=== PATIENT | female | born 1955 | race Caucasian/White ===

== ENCOUNTER → 2019-04-17 09:12 | Outpatient (CLI) | payer MEDICARE, SELFPAY ==
--- NOTE | ~2019-04-17 | XR_ITS ---
XR heel RT min 2V DATE: 04/17/2019 09:27 INDICATION: Right heel pain for 2 weeks. No injury. TECHNIQUE: Axial and lateral views COMPARISON: None FINDINGS: There is plantar and posterior calcaneal enthesopathy. There is no associated periostitis o r erosive change. There is some calcification beneath the heel in the region of the plantar aponeuros is. No fracture or dislocation or bone destruction is detected. Posterior tibial artery calcification. IMPRESSION: Plantar and posterior calcaneal enthesopathy Reviewed, dictated and finalized at location B. NOMY TEACHER
== END ==
PROVIDERS: PCP Family Medicine; Visit Provider Family Medicine
DX: M79.671 Pain in right foot (principal); M77.31 Calcaneal spur, right foot
CPT/HCPCS: 73650

== ENCOUNTER 2020-06-14 07:36 | Outpatient (CLI) | payer MEDICARE, SELFPAY ==
--- NOTE | ~2020-06-14 | MR_ITS ---
EXAMINATION: MR brain IAC wo/w con EXAM DATE: 06/14/2020 09:21 INDICATION: R42 - Dizziness and giddiness TECHNIQUE: Multi-sequential, multiplanar MR images of the brain, brainstem, internal auditory canals were obtained without contrast. Whole brain sagittal T1, axial diffusion, gradient echo (T2*), T1, T 2, FLAIR sequences obtained. High resolution coronal 3-D FIESTA, coronal T1 FSE, axial T1 FSPGR of t he internal auditory canals. Patient was then injected with 19 cc Multihance contrast intravenously. Postcontrast axial and coronal T1 weighted whole brain, axial and coronal high resolution T1 IAC seq uences obtained. Comparison is made to prior examination from 09/08/2009. FINDINGS: No evidence of mastoid or middle ear opacification. The 7th/8th cranial nerve complexes a re symmetric, normal in course and caliber. No cerebellopontine angle masses. Posterior fossa unrem arkable. An artery which is probably the left anterior inferior cerebellar artery is extending < 50% into the respective internal auditory canal. This finding has been implicated by some in potentially causing c ompressive 7th/8th cranial nerve symptoms, a vascular loop compressive syndrome, but is often seen in cidentally in asymptomatic patients. There are no areas of restricted diffusion to suggest acute infarction. There is no acute hemorrhage seen on the T2*, a hemosiderin sensitive sequence. Mild microangiopathy and cerebral atrophy. No int raparenchymal brain mass. The ventricles are normal in size. There are no extra-axial collections. Flow voids are seen in the cerebral arteries on the T2-weighted sequences consistent with their expec brodie patency. The orbits are unremarkable. Soft tissue is unremarkable. Incidental right parietal lobe developmental venous anomaly, not a clinically significant finding. Otherwise no areas of abnorm al enhancement. IMPRESSION: 1. No acute intracranial findings. 2. Left AICA extending into interior of internal auditory canal. Could be incidental. 3. Incidental right parietal lobe DVA. 4. Mild age-related findings. Reviewed, dictated and finalized at location B. IMPRESSION: 1. No acute intracranial findings. 2. Left AICA extending into interior of internal auditory canal. Could be inci dental. 3. Incidental right parietal lobe DVA. 4. Mild age-related findings.
== END 2020-06-14 07:37 | disposition home or self-care (01) ==
PROVIDERS: PCP Family Medicine; Visit Provider Family Medicine
DX: R42 Dizziness and giddiness (principal); R41.0 Disorientation, unspecified
CPT/HCPCS: 70553; A9577

== ENCOUNTER 2020-10-26 14:30 | Outpatient (CLI) | payer MEDICARE, SELFPAY ==
--- NOTE | ~2020-10-26 | MM_ITS ---
EXAMINATION: MM screening pat BI w yoselyn HISTORY: Screening TECHNIQUE: Craniocaudal and mediolateral oblique 3-D tomosynthesis images were obtained and synthetic 2-D images were generated. CAD analysis was submitted and interpreted. COMPARISON: Comparison to multiple prior studies sequentially, with oldest reviewed study dated 07/2014. BREAST PARENCHYMAL COMPOSITION: Breast composed of scattered areas of fibroglandular density FINDINGS: There is no evidence of suspicious mass, calcification, or architectural distortion to sugg est malignancy in either breast. There has been no suspicious interval change. IMPRESSION: 1. No mammographic evidence of malignancy. 2. Recommend routine screening mammography in one year. BI-RADS Category 1: Negative Reviewed, dictated and finalized at location A.
== END 2020-10-26 14:31 | disposition home or self-care (01) ==
LOC: ANHIMG 14:34
PROVIDERS: PCP Family Medicine; Visit Provider Family Medicine
DX: Z12.31 Encounter for screening mammogram for malignant neoplasm of breast (principal)
CPT/HCPCS: 77063; 77067

== ENCOUNTER 2021-10-03 14:24 | Emergency (ER) | payer MEDICARE, SELFPAY ==
[2021-10-03 14:35] VITALS: BP 131/98; PULSE 88; RESP 16; TEMP 37.2; O2SAT 97
--- NOTE | 2021-10-03 14:40 | ED.URI ---
HPI - URI/Sore Throat General Chief Complaint: Upper Respiratory Infection Stated Complaint: sinus pressure, cough Time Seen by Provider: 10/03/21 14:45 Source: patient and RN notes reviewed Mode of arrival: ambulatory Limitations: no limitations History of Present Illness HPI Narrative: 66-year-old female with concern for 3-week history of cough. She reports productive cough with clear drainage. She reports clear rhinorrhea. She reports cough is worse at night, keeping her awake. She denies shortness of breath. She reports she has had several negative COVID test throughout the course of her illness. She has tried jxmn-hei-ahirnsl medications without relief. She denies any history of breathing problems, asthma, smoking, COPD. Reports she uses a CPAP machine at night. She denies fever, body aches, chills, sweats, chest pain. MD elicited complaint: cough and rhinorrhea Related Data Home Medications Medication Instructions Recorded Confirmed ferrous fumarate 324 mg (106 mg 324 mg PO DAILY 10/03/21 10/03/21 iron) tablet (Ferrocite) ipratropium bromide 21 mcg (0.03 2 spray intranasal BID 10/03/21 10/03/21 %) nasal spray Allergies Allergy/AdvReac Type Severity Reaction Status Date / Time bupropion Allergy Severe RASH Verified 10/03/21 14:41 oxycodone Allergy Unknown HIVES/ITCHI Verified 10/03/21 14:41 NG red (food color) Allergy Unknown ITCHING Verified 10/03/21 14:41 tramadol Allergy Unknown Itching/HIV Verified 10/03/21 14:41 ES Quqelhg-YST-FgT Reductase AdvReac Intermediate intolerance Verified 10/03/21 14:41 Inhibitor [Aofyaws-Lru-Lvr Reductase Inhibitor] TAPE AdvReac Intermediate WELTS Uncoded 10/03/21 14:41 Review of Systems Review of Systems: CONSTITUTIONAL: Denies malaise, chills, sweats, or fever. EYES: Denies visual changes, redness, or discharge. ENT: Reports rhinorrhea. Denies congestion, sinus pain, otalgia and sore throat. CARDIOVASCULAR: Denies chest pain, palpitations, or edema. RESPIRATORY: Reports persistent productive cough. Denies dyspnea. GASTROINTESTINAL: Denies abdominal pain, nausea, vomiting, diarrhea SKIN: Denies rash or itching. MUSCULOSKELETAL: Denies myalgia. NEUROLOGIC: Denies headache. All systems reviewed & are unremarkable except as noted in HPI and below PMFSH Past Medical History Medical History Anxiety Depression Diabetes type 2, controlled Fever blister History of melanoma Hypertension IBS (irritable bowel syndrome) Infected sebaceous cyst of skin Osteoarthritis Sleep apnea on cpap followed by ent Surgical History Surgical History History of cholecystectomy History of tonsillectomy Family History Family History Father Family history of diabetes mellitus in first degree relative Patient's father is Mother Family history of lung cancer, Onset Age: 77 Other Diabetes mellitus Family history of arthritis Family history of malignant neoplasm Hypertension Social History Social History Smoking status: Never smoker Alcohol intake: current Comments At time of signature, agree with nursing past medical, surgical, social and family history. There is no relevant family history pertinent to the presenting complaint Exam Narrative: GENERAL: Well-appearing, well-nourished, and in no acute distress. HEAD: Normocephalic EYES: PERRLA, conjunctivae clear ENT: Nares clear, clear discharge. Mucous membranes moist. TM pearly guadarrama with dull light reflex bilaterally; no tragal tenderness. Oropharynx not erythematous without lesions. Tonsils not enlarged and without exudate, no drooling, no hoarseness, no trismus, uvula midline. NECK: Supple. No lymphadenopathy CHEST: Clear to auscultation, breath sounds
== END 2021-10-03 15:02 | disposition home or self-care (01) ==
PROVIDERS: Emergency Provider Nurse Practitioner; PCP Physician Assistant
DX: J32.9 Chronic sinusitis, unspecified (principal); J40 Bronchitis, not specified as acute or chronic; E11.9 Type 2 diabetes mellitus without complications; I10 Essential (primary) hypertension; M19.90 Unspecified osteoarthritis, unspecified site; G47.30 Sleep apnea, unspecified; Z85.820 Personal history of malignant melanoma of skin; Z79.84 Long term (current) use of oral hypoglycemic drugs
CPT/HCPCS: 99213; G0463

== ENCOUNTER 2021-10-17 11:34 | Emergency (ER) | payer MEDICARE, SELFPAY ==
--- NOTE | ~2021-10-17 | XR_ITS ---
EXAMINATION: XR chest 2V DATE: 10/17/2021 12:43 INDICATION: Cough. TECHNIQUE: Frontal and lateral views of the chest were obtained. COMPARISON: Chest 2 views 08/22/2016 FINDINGS: There is no pneumonia, pleural effusion, pneumothorax. The heart size is normal. Surgical c lips in the right upper quadrant are likely from cholecystectomy. IMPRESSION: 1. No acute cardiopulmonary disease. Reviewed, dictated and finalized at location A.
[2021-10-17 11:46] VITALS: BP 134/77; PULSE 87; RESP 16; TEMP 36.8; O2SAT 100
--- NOTE | 2021-10-17 12:31 | ED.URI ---
HPI - URI/Sore Throat General Chief Complaint: Upper Respiratory Infection Stated Complaint: cough, sinus pressure Source: patient Mode of arrival: ambulatory Limitations: no limitations History of Present Illness HPI Narrative: 66-year-old female presents to [facility] with complaints of continued sinus congestion, pressure, nonproductive cough and watery eyes for the past 3 to 4 weeks. Patient was evaluated here 3 weeks ago, prescribed Augmentin, cough medication and prednisone 20 mg. Patient reports that she has continued with symptoms and feels that the medication did not help her. Patient is a non-smoker. Patient reports that she recently went on an [place] and got home last night. Patient had 2 recent negative COVID test. Patient denies shortness of breath, wheezing, nausea, vomiting or diarrhea. Patient denies sick contacts. MD elicited complaint: cough Onset (ago): week(s) (3) Consistency: constant Severity: mild Able to tolerate fluids by mouth: Yes Associated symptoms: nasal congestion Treatments prior to arrival: antibiotics Related Data Home Medications Medication Instructions Recorded Confirmed ferrous fumarate 324 mg (106 mg 324 mg PO DAILY 10/03/21 10/17/21 iron) tablet (Ferrocite) ipratropium bromide 21 mcg (0.03 2 spray intranasal BID 10/03/21 10/17/21 %) nasal spray Allergies Allergy/AdvReac Type Severity Reaction Status Date / Time bupropion Allergy Severe RASH Verified 10/03/21 14:41 oxycodone Allergy Unknown HIVES/ITCHI Verified 10/03/21 14:41 NG red (food color) Allergy Unknown ITCHING Verified 10/03/21 14:41 tramadol Allergy Unknown Itching/HIV Verified 10/03/21 14:41 ES Ywtdhcw-PTH-AlV Reductase AdvReac Intermediate intolerance Verified 10/03/21 14:41 Inhibitor [Utvtjpy-Rbw-Wbs Reductase Inhibitor] TAPE AdvReac Intermediate WELTS Uncoded 10/03/21 14:41 Review of Systems Constitutional: Constitutional: Denies chills, Denies fatigue, Denies fever(s) and Denies weakness Eyes: Comments: Watery eyes ENT: Denies dizziness Comments: Sinus pressure, congestion, runny nose Respiratory: Respiratory: Denies chest congestion, Reports cough, Denies dyspnea and Denies wheezing Gastrointestinal: Gastrointestinal: Denies diarrhea, Denies nausea and Denies vomiting Integumentary/Breasts: Skin/Breast: Denies pruritus and Denies rash Neurologic: Denies vertigo and Denies dizziness Allergic/Immunologic: Allergic/Immunologic: Denies throat swelling, Denies tongue swelling and Denies wheezing PMFSH Past Medical History Medical History Anxiety Depression Diabetes type 2, controlled Fever blister History of melanoma Hypertension IBS (irritable bowel syndrome) Infected sebaceous cyst of skin Osteoarthritis Sleep apnea on cpap followed by ent Surgical History Surgical History History of cholecystectomy History of tonsillectomy Family History Family History Father Family history of diabetes mellitus in first degree relative Patient's father is Mother Family history of lung cancer, Onset Age: 77 Other Diabetes mellitus Family history of arthritis Family history of malignant neoplasm Hypertension Social History Social History Smoking status: Never smoker Alcohol intake: current Comments At time of signature, I agree with nursing past medical, surgical, social and family history. There is no relevant family history pertinent to the presenting complaint. Exam Const: General: healthy appearing and no acute distress Nutritional Appearance: well nourished Orientation/consciousness: patient oriented x3 Limitations: no limitations HENMT: Head: normal to inspection Ears: external ears normal Gen
== END 2021-10-17 13:00 | disposition home or self-care (01) ==
PROVIDERS: Emergency Provider Nurse Practitioner Family; PCP Physician Assistant
DX: J01.90 Acute sinusitis, unspecified (principal); J06.9 Acute upper respiratory infection, unspecified; E11.9 Type 2 diabetes mellitus without complications; I10 Essential (primary) hypertension; M19.90 Unspecified osteoarthritis, unspecified site; G47.30 Sleep apnea, unspecified; Z85.820 Personal history of malignant melanoma of skin
CPT/HCPCS: 71046; 99213; G0463

== ENCOUNTER → 2022-08-08 14:32 | Outpatient (CLI) | payer MEDICARE, SELFPAY ==
--- NOTE | ~2022-08-08 | XR_ITS ---
EXAM: XR knee RT min 4V, XR knee LT min 4V DATE: 08/08/2022 14:51 HISTORY: no injury bilateral knee pain . COMPARISON: 08/07/2014. FINDINGS: Decreased mineralization. No fracture or dislocation. No lytic or blastic lesion. Varus al ignment bilaterally, greater on the left. Severe bilateral medial joint space narrowing. Calcificatio n of the right medial capsule and MCL. Bilateral chondrocalcinosis. Heterotopic bone formation supero lateral to the bilateral patellae. Moderate bilateral tricompartmental osteophytosis No erosion or pe riosteal change. Soft tissues within normal limits. IMPRESSION: Osteopenia. Severe bilateral knee osteoarthritis. Heterotopic bone formation superolatera l to the bilateral patellae. Reviewed, dictated and finalized at location K. IMPRESSION: Osteopenia. Severe bilateral knee osteoarthritis. Heterotopic bone formation superolateral to the bilateral patellae.
== END ==
PROVIDERS: PCP Emergency Medicine; Visit Provider Emergency Medicine
DX: M17.0 Bilateral primary osteoarthritis of knee (principal); M85.861 Other specified disorders of bone density and structure, right lower leg; M85.862 Other specified disorders of bone density and structure, left lower leg
CPT/HCPCS: 73564

== ENCOUNTER 2023-02-22 15:59 | Outpatient (CLI) | payer MEDICARE, SELFPAY ==
--- NOTE | ~2023-02-22 | MM_ITS ---
EXAMINATION: MM screening [facility] BI w yoselyn HISTORY: Screening mammogram TECHNIQUE: Craniocaudal and mediolateral oblique 3-D tomosynthesis images were obtained and synthetic 2-D images were generated. CAD analysis was submitted and interpreted. COMPARISON: 10/26/2020, 10/23/2017, 01/11/2016, 11/24/2015 BREAST PARENCHYMAL COMPOSITION: There are scattered areas of fibroglandular density. FINDINGS: No suspicious mass, calcification, or architectural distortion are identified in either brunilda ast to suggest malignancy. There has been no suspicious interval change. IMPRESSION: 1. No mammographic evidence of malignancy. 2. Recommend routine screening mammography in one year. BI-RADS Category 1: Negative Reviewed, dictated and finalized at location A. DENTIAL TREATMENT STAFF
== END 2023-02-22 16:00 | disposition home or self-care (01) ==
PROVIDERS: PCP Emergency Medicine; Visit Provider Emergency Medicine
DX: Z12.31 Encounter for screening mammogram for malignant neoplasm of breast (principal)
CPT/HCPCS: 77063; 77067

== ENCOUNTER 2023-03-06 02:09 | Day surgery (SDC) | payer MEDICARE, SELFPAY ==
[2023-02-19 14:38] VITALS: BMI 35.1
--- NOTE | 2023-03-02 13:20 | SUR.PREOP ---
Patient called regarding upcoming procedure. Reviewed preop instructions, appointment times, and procedure prep.
[2023-03-06 09:48] LABS: Glucose Point of Care 139 mg/dl (65-105)
[2023-03-06 09:51] VITALS: BP 155/82; PULSE 77; RESP 18; TEMP 36.5; O2SAT 99
[2023-03-06] MEDS: LACTATED RINGERS 1,000 ML 150 ML IV CONT (10:08)
--- NOTE | 2023-03-06 10:35 | PM.HPGS ---
History of Present Illness History of Present Illness Consent: Risks, benefits, and alternatives have been discussed and questions answered. Patient agrees to proceed with procedure. Chief complaint: neoplasm screening Narrative: Oumou Valerio is a 67 year old female here for screening colonoscopy, last one 10 years ago Review of Systems Constitutional: Constitutional: Denies headache(s) and Denies weakness Eyes: Eyes: Denies blurry vision ENT: Reports Normal hearing present, Denies headache(s) and Denies neck pain Cardiovascular: Cardiovascular: Denies chest pain and Denies dyspnea Respiratory: Respiratory: Denies dyspnea Gastrointestinal: Gastrointestinal: Reports no additional gastrointestinal complaints Genitourinary: Genitourinary: Denies dysuria Musculoskeletal: Musculoskeletal: Denies neck pain Integumentary/Breasts: Skin/Breast: Denies dry skin Neurologic: Reports Normal hearing present, Denies headache(s) and Denies weakness Psychiatric: Psychiatric: Denies anxiety Endocrine: Endocrine: Denies change in body appearance Hematologic/Lymphatic: Hematologic/Lymphatic: Denies easy bleeding Allergic/Immunologic: Allergic/Immunologic: Denies urticaria PMFSH Past Medical History Medical History (Updated 03/06/23 @ 10:36 by Ishaan Patterson MD) Anxiety Colon cancer screening Depression Diabetes type 2, controlled Fever blister History of melanoma Hypertension IBS (irritable bowel syndrome) Infected sebaceous cyst of skin Osteoarthritis Sleep apnea on cpap followed by ent Surgical History Surgical History History of cholecystectomy History of tonsillectomy Family History Family History Father Family history of diabetes mellitus in first degree relative Patient's father is Mother Family history of lung cancer, Onset Age: 77 Other Diabetes mellitus Family history of arthritis Family history of malignant neoplasm Hypertension Social History Social History (Updated 12/07/22 @ 14:27 by Alyssa Hernandez CMA) Smoking status: Never smoker Alcohol intake: current Alcohol use details: rarely Substance use type: does not use Lack of Transportation: No Lack of Food: Never True Current Housing: I Have Housing Concerned About Future Housing: No Difficulty Paying Gas/Electric Bills: No Difficulty Paying for Meds: No Currently Unemployed: No Education: Decline to Answer Difficulty w/ Childcare or Family Care: No Living arrangements: other Additional living arrangements comments: with sp Occupation/Education: occupation 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- [employer] Spiritual care concerns: No Meds Home Medications and Allergies Home Medications Medication Instructions Recorded Confirmed Type levocetirizine 5 mg tablet 5 mg PO DAILY 12/19/22 03/06/23 History tirzepatide 2.5 mg/0.5 mL 2.5 mg (0.5 mL) subcut WEEKLY 4 03/03/23 03/06/23 Rx subcutaneous pen injector weeks #2 mL (Mounjaro) clonazepam 0.5 mg tablet 0.5 mg PO DAILY #30 tabs 03/06/23 Rx diclofenac sodium 75 mg 75 mg PO BID 03/06/23 03/06/23 History tablet,delayed release dicyclomine 20 mg tablet 20 mg PO BID 03/06/23 03/06/23 History glipizide 5 mg tablet, extended 5 mg PO DAILY #90 tabs 03/06/23 Rx release 24 hr montelukast 10 mg tablet 10 mg PO QPM 03/06/23 03/06/23 History verapamil 240 mg tablet,extended 240 mg PO DAILY 03/06/23 03/06/23 History release Allergies Allergy/AdvReac Type Severity Reaction Status Date / Time bupropion Allergy Severe RASH Verified 03/06/23 09:47 oxycodone Allergy Unknown HIVES/ITCHI Verified 03/06/23 09:47 NG red (food color) Allergy Unknown ITCHING Verified 03/06/23 09:47 tramadol Allergy Unknown Itching/HIV Verified 03/06/23 09:[address]
--- NOTE | 2023-03-06 10:37 | WPDANESEPPF ---
Anes - Initial Pre Proc Eval Procedure: Operation Date: 03/06/23 11:00 Proposed Procedures p Screening Colonoscopy - Ishaan Patterson MD Date/Time: 03/06/23 10:37 Surgeon: Ishaan Patterson MD Pre Op Diagnosis: neoplasm screening Patient Data Age: 67 Gender: F Height: 1.6 m Weight: 87.4 kg Last Vital Signs Temp 97.7 F 03/06/23 09:51 Pulse 77 03/06/23 09:51 Resp 18 03/06/23 09:51 BP 155/82 H 03/06/23 09:51 Pulse Ox 99 03/06/23 09:51 O2 Del Method Room Air 03/06/23 09:51 Allergies Allergy/AdvReac Type Severity Reaction Status Date / Time bupropion Allergy Severe RASH Verified 03/06/23 09:47 oxycodone Allergy Unknown HIVES/ITCHI Verified 03/06/23 09:47 NG red (food color) Allergy Unknown ITCHING Verified 03/06/23 09:47 tramadol Allergy Unknown Itching/HIV Verified 03/06/23 09:47 ES Wupzjul-BRW-YeF Reductase AdvReac Intermediate intolerance Verified 03/06/23 09:47 Inhibitor [Rkztqxu-Msl-Ckb Reductase Inhibitor] TAPE AdvReac Intermediate WELTS Uncoded 03/06/23 09:47 Home Medications Medication Instructions Recorded Confirmed Type levocetirizine 5 mg tablet 5 mg PO DAILY 12/19/22 03/06/23 History tirzepatide 2.5 mg/0.5 mL 2.5 mg (0.5 mL) subcut WEEKLY 4 03/03/23 03/06/23 Rx subcutaneous pen injector weeks #2 mL (Jerseyunanjum) clonazepam 0.5 mg tablet 0.5 mg PO DAILY #30 tabs 03/06/23 Rx diclofenac sodium 75 mg 75 mg PO BID 03/06/23 03/06/23 History tablet,delayed release dicyclomine 20 mg tablet 20 mg PO BID 03/06/23 03/06/23 History glipizide 5 mg tablet, extended 5 mg PO DAILY #90 tabs 03/06/23 Rx release 24 hr montelukast 10 mg tablet 10 mg PO QPM 03/06/23 03/06/23 History verapamil 240 mg tablet,extended 240 mg PO DAILY 03/06/23 03/06/23 History release Laboratory Tests 03/06/23 09:44 POC Capillary Glucose 139 H mg/dl (65-105) Patient hx anesthesia problems: none Family hx anesthesia problems: none Results Review: All pre-operative results and documents have been reviewed as part of the pre-operative evaluation. [facility] Past Medical History Medical History (Updated 03/06/23 @ 10:36 by Ishaan Patterson MD) Anxiety Colon cancer screening Depression Diabetes type 2, controlled Fever blister History of melanoma Hypertension IBS (irritable bowel syndrome) Infected sebaceous cyst of skin Osteoarthritis Sleep apnea on cpap followed by ent Surgical History Surgical History History of cholecystectomy History of tonsillectomy Family History Family History Father Family history of diabetes mellitus in first degree relative Patient's father is Mother Family history of lung cancer, Onset Age: 77 Other Diabetes mellitus Family history of arthritis Family history of malignant neoplasm Hypertension Social History Social History (Updated 12/07/22 @ 14:27 by Alyssa Hernandez CMA) Smoking status: Never smoker Alcohol intake: current Alcohol use details: rarely Substance use type: does not use Lack of Transportation: No Lack of Food: Never True Current Housing: I Have Housing Concerned About Future Housing: No Difficulty Paying Gas/Electric Bills: No Difficulty Paying for Meds: No Currently Unemployed: No Education: Decline to Answer Difficulty w/ Childcare or Family Care: No Living arrangements: other Additional living arrangements comments: with sp Occupation/Education: occupation 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
[2023-03-06 10:58] VITALS: BP 107/47; PULSE 70; RESP 11; O2SAT 97
[2023-03-06 11:08] VITALS: BP 99/50; PULSE 73; RESP 13; O2SAT 97
[2023-03-06 11:18] VITALS: BP 124/75; PULSE 77; RESP 18; O2SAT 99
== END 2023-03-06 11:31 | disposition home or self-care (01) ==
PROVIDERS: PCP Emergency Medicine; Visit Provider Internal Medicine Gastroenterology
PROC: 0DJD8ZZ Inspection of Lower Intestinal Tract, Via Natural or Artificial Opening Endoscopic (ICD-10-PCS; CPT 45378; principal; 2023-03-06 11:00)
DX: Z12.11 Encounter for screening for malignant neoplasm of colon (principal); I10 Essential (primary) hypertension; F41.9 Anxiety disorder, unspecified; F32.A Depression, unspecified; E11.9 Type 2 diabetes mellitus without complications; K58.9 Irritable bowel syndrome, unspecified; G47.30 Sleep apnea, unspecified; E66.9 Obesity, unspecified; Z68.34 Body mass index [BMI] 34.0-34.9, adult; Z79.85 Long-term (current) use of injectable non-insulin antidiabetic drugs; Z79.84 Long term (current) use of oral hypoglycemic drugs; Z99.89 Dependence on other enabling machines and devices; Z90.49 Acquired absence of other specified parts of digestive tract; Z85.820 Personal history of malignant melanoma of skin; Z80.1 Family history of malignant neoplasm of trachea, bronchus and lung
CPT/HCPCS: G0105; 82948; J2704; J7120

== ENCOUNTER 2023-03-27 14:45 | Outpatient (RCR) | payer MEDICARE, SELFPAY ==
[2023-01-09 13:34] VITALS: BMI 36.3
[2023-01-23 15:46] VITALS: BMI 36.3
[2023-03-27 14:45] VITALS: BMI 34.0
[2023-03-27 14:47] VITALS: BMI 34.0
== END 2023-04-09 09:54 | disposition home or self-care (01) ==
LOC: ANHDMC 14:45
PROVIDERS: PCP Emergency Medicine; Visit Provider Emergency Medicine
DX: E11.40 Type 2 diabetes mellitus with diabetic neuropathy, unspecified (principal); E11.65 Type 2 diabetes mellitus with hyperglycemia; Z71.3 Dietary counseling and surveillance
CPT/HCPCS: 97802; 97803

== ENCOUNTER 2023-04-16 14:25 | Outpatient (CLI) | payer MEDICARE, SELFPAY ==
--- NOTE | 2023-04-16 15:33 | ECG_ITS ---
Measurements Intervals [place] Rate: 69 P: 0 CO: 140 QRS: 15 QRSD: 92 T: 42 QT: 376 QTc: 405 Interpretive Statements SINUS RHYTHM DELAYED PRECORDIAL R/S TRANSITION LOW QRS VOLTAGE IN PRECORDIAL LEADS BASELINE ARTIFACT- I, II, III, AVR, AVL, AVF, V1-V6 BORDERLINE ECG COMPARED TO ECG 02/24/2019 08:49:20 NO SIGNIFICANT CHANGES Electronically Signed On 04-16-2023 15:54:28 MICROBIOLOGY TECHNOLOGIST by Cruz Walker D.O.
[2023-04-16 16:06] LABS: Basophils Absolute Auto 0.1 K/mm3 (0.0-0.1); Basophils Percent Auto 0.9 % (0.2-1.2); Eosinophils Absolute Auto 0.3 K/mm3 (0-0.3); Eosinophils Percent Auto 2.6 % (0-4.4); Hematocrit 38.3 % (37.0-47.0); Immature Granulocyte Absolute 0.03 K/mm3 (0.00-0.031); Immature Granulocyte Percent A 0.3 % (0-0.5); Lymphocytes Absolute Auto 3.36 K/mm3 (0.9-3.2); Lymphocytes Percent Auto 32.7 % (18.3-44.2); Mean Corpuscular HGB Conc 31.3 g/dl (32-36); Mean Corpuscular Hemoglobin 26.7 pg (26-34); Mean Corpuscular Volume 85.1 fl (80-100); Mean Platelet Volume 9.6 fl (7.4-10.4); Monocytes Absolute Auto 0.7 K/mm3 (0.1-0.6); Monocytes Percent Auto 7.1 % (2.6-8.5); Neutrophils Absolute Auto 5.8 K/mm3 (1.3-6.7); Neutrophils Percent Auto 56.4 % (45.5-73.1); Platelet Count Result 392 k/mm3 (150-375); Red Cell Distribution Width 13.2 % (11.5-14.5); White Blood Count 10.3 K/mm3 (4.5-10.0)
[2023-04-16 16:11] LABS: Albumin Level 4.5 g/dL (3.5-5.1)
[2023-04-16 16:14] LABS: Anion Gap 9 mmol/L (8-16); Blood Urea Nitrogen 20 mg/dL (7-17); Carbon Dioxide 28 mmol/L (22-30); Chloride 98 mmol/L (98-107); Estimated Glomerular Filt Rate > 60; Glucose 113 mg/dL (65-110); Potassium 3.5 mmol/L (3.4-5.0); Sodium 135 mmol/L (137-145); Urine Cotinine NEGATIVE
[2023-04-16 18:37] LABS: Hemoglobin A1C 7.5 % (<5.7)
== END 2023-04-16 14:26 | disposition home or self-care (01) ==
LOC: ANHSURGERY 14:36
PROVIDERS: Anesthesiology; PCP Family Medicine; Visit Provider Orthopaedic Surgery
DX: M17.12 Unilateral primary osteoarthritis, left knee (principal); E11.40 Type 2 diabetes mellitus with diabetic neuropathy, unspecified; Z01.818 Encounter for other preprocedural examination
CPT/HCPCS: 36415; 80048; 80307; 82040; 83036; 85025; 86850; 86900; 86901; 93005

== ENCOUNTER 2023-04-23 01:39 | Day surgery (SDC) | payer MEDICARE, SELFPAY ==
[2023-04-16 14:42] VITALS: BMI 36.1
--- NOTE | 2023-04-16 15:10 | PC.NURSE ---
Report to the Outpatient Waiting Room, entrance under the green pavilion located off [facility], at time __0600 on date ___04/23/23____. Planned Procedure Time: __729 . Time changes happen often and if your time is changed the preop area will call you the afternoon before. - You and your visitor will be asked to self-screen and do not enter if you have any COVID symptoms. - A mask is optional within the hospital at this time. Patients may have clear liquids (water, carbonated beverages, clear teas, apple juice) until 3 hours prior to surgery ( 4:30 AM)with a maximum of 20 ounces. - No food from midnight until time of surgery - Infants may have breast milk until 4 hours before surgery, formula 6 hours prior to surgery. - Children will be allowed to drink immediately following surgery. If applicable, please bring a bottle or sippy cup to assist with drinking. Juice, water, soda, and popsicles are readily available. For infants on formula, please bring formula the day of surgery. Pacifiers are allowed. Take the following medications with a SIP of water the morning of surgery: __SERTRALINE,VERAPAMIL DO NOT STOP ANY OF YOUR OTHER PRESCRIPTION MEDICATIONS PRIOR TO SURGERY ?EXCEPT THE FOLLOWING Medications to discontinue per physician __DICLOFENAC PER DR PLUNKETT ( PATIENT TO CALL) HOLD ALL VITAMINS AND SUPPLEMENTS 3 DAYS PRE OP LAST DOSE 04/19/23 Please no make-up, nail greenlandic, hairspray, perfume, deodorant, or body powder the day of surgery. No jewelry (including any body piercings) or valuables the day of surgery, leave them at home. Please take a shower or bath the night before, or the morning of, surgery with an antibacterial soap. Wear comfortable, loose fitting clothing. Children are encouraged to wear pajamas. - Jewelry must be removed prior to entering the operating room. Rings and piercings that are not removed may be cut off. - The hospital will not accept responsibility for valuables. - Please leave all valuables, including medications, at home the day of surgery. If you are going home after surgery, a licensed driver starting gate must drive you home. - NO public transportation without another adult if you receive anesthesia. - We recommend that an adult stay with you for 24 hours following discharge. - We also recommend that you do not drive, make important decision, drink alcoholic beverages, or take any drugs that were not prescribed by your health care provider for at least 24 hours after your discharge time. Follow any additional instructions given to you from your surgeon. If you or anyone in your household have experienced Covid symptoms in the past week, please notify your surgeon or the nurse liaison at the phone number below for possible testing. VERBAL AND WRITTEN instructions given to __PATIENT and asked if any additional questions and then verbalized understanding. Patient advised to call surgeon office or pre surgery nurse liaison [phone] if any additional questions.
[2023-04-16 15:27] VITALS: BP 143/76; PULSE 72; RESP 18; TEMP 36.7; O2SAT 98
--- NOTE | 2023-04-19 07:21 | PM.IMHP ---
H&P: HPI History of Present Illness Date/Time: 04/19/23 07:21 Chief Complaint: Patient has arthritis right knee and has failed conservative treatment. She would like to consider knee replacement surgery. Review of Systems Musculoskeletal: Musculoskeletal: Reports arthralgias, Reports joint swelling and Reports stiffness PMFSH Past Medical History Medical History Anxiety Colon cancer screening Depression Diabetes type 2, controlled Fever blister History of melanoma Hypertension IBS (irritable bowel syndrome) Infected sebaceous cyst of skin Osteoarthritis Sleep apnea on cpap followed by ent Surgical History Surgical History History of cholecystectomy History of tonsillectomy Family History Family History Father Family history of diabetes mellitus in first degree relative Patient's father is Mother Family history of lung cancer, Onset Age: 77 Other Diabetes mellitus Family history of arthritis Family history of malignant neoplasm Hypertension Social History Social History Smoking status: Never smoker Additional smoking assessment comments: DENIES ANY FORM OF TOBACCO USE Alcohol intake: current Alcohol use details: rarely Substance use type: does not use Lack of Transportation: No Lack of Food: Never True Current Housing: I Have Housing Concerned About Future Housing: No Difficulty Paying Gas/Electric Bills: No Difficulty Paying for Meds: No Currently Unemployed: No Education: Decline to Answer Difficulty w/ Childcare or Family Care: No Living arrangements: with family Additional living arrangements comments: with sp Occupation/Education: occupation 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[employer]- [employer] Spiritual care concerns: No Meds Home Medications and Allergies Home Medications Medication Instructions Recorded Confirmed Type levocetirizine 5 mg tablet 5 mg PO HS 12/19/22 04/16/23 History diclofenac sodium 75 mg 75 mg PO BID 03/06/23 04/16/23 History tablet,delayed release dicyclomine 20 mg tablet 20 mg PO BID 03/06/23 04/16/23 History glipizide 5 mg tablet, extended 5 mg PO DAILY #90 tabs 03/06/23 04/16/23 Rx release 24 hr montelukast 10 mg tablet 10 mg PO HS 03/06/23 04/16/23 History hydrochlorothiazide 12.5 mg tablet 12.5 mg PO DAILY #90 tabs 03/09/23 04/16/23 Rx verapamil 240 mg tablet,extended See Rx Instructions .Route 04/06/23 04/16/23 Rx release .COMPLEX #90 tabs sertraline 25 mg tablet 25 mg PO DAILY #30 tabs 04/10/23 04/16/23 Rx trazodone 50 mg tablet 50 mg PO QHS PRN sleep #60 tabs 04/10/23 04/16/23 Rx clonazepam 0.5 mg tablet 0.5 mg PO HS 04/16/23 04/16/23 History cyanocobalamin (vitamin B-12) 500 500 mcg PO DAILY 04/16/23 04/16/23 History mcg tablet metformin 500 mg tablet,extended 500 mg PO BID 04/16/23 04/16/23 History release 24 hr Allergies Allergy/AdvReac Type Severity Reaction Status Date / Time bupropion Allergy Severe RASH Verified 04/16/23 14:43 oxycodone Allergy Unknown HIVES/ITCHI Verified 04/16/23 14:43 NG red (food color) Allergy Unknown ITCHING Verified 04/16/23 14:43 tramadol Allergy Unknown Itching/HIV Verified 04/16/23 14:43 ES Mpmmwmv-OVY-NaA Reductase AdvReac Intermediate intolerance Verified 04/16/23 14:43 Inhibitor [Fjvhibc-Doz-Wus Reductase Inhibitor] TAPE AdvReac Intermediate WELTS Uncoded 04/16/23 14:43 Exam Narrative: On exam she has motion of her knee from 3 to 100?. She has varus deformity grinding crepitus and pain with manipulation. Neurologically she is grossly intact. She walks with an antalgic gait. Eyes: General: appearance normal, both eyes and all related structures Neck:
[2023-04-23] VITALS (14 sets, daily range): BP systolic 120–160; BP diastolic 56–79; PULSE 68–79; RESP 12–20; TEMP 35.6–36.6; O2SAT 94–99
--- NOTE | ~2023-04-23 | XR_ITS ---
EXAMINATION: [id number] DATE: 04/23/2023 10:01 INDICATION: Postoperative evaluation following left total knee arthroplasty. TECHNIQUE: Anteroposterior and lateral views of the left knee were obtained. COMPARISON: None. FINDINGS: Left total knee arthroplasty with patellar resurfacing appears well seated and in near anatomic align ment. No fractures identified. Skin sarah and expected postoperative subcutaneous, intramedullary and intra-articular gas. IMPRESSION: 1. Left total knee arthroplasty, negative for postoperative purposes. Reviewed, dictated and finalized at location B.
[2023-04-23] MEDS: ACETAMINOPHEN 500 MG TABLET 1000 MG PO (06:10)
[2023-04-23] MEDS: VANCOMYCIN 1,500 MG/NS 500 ML BAG 250 MG IVPB (06:25)
[2023-04-23 06:44] LABS: Glucose Point of Care 154 mg/dl (65-105)
--- NOTE | 2023-04-23 06:57 | WPDHPUPDATE1 ---
History and Physical Update Update Date/Time: 04/23/23 06:57 History and Physical has been reviewed, including an updated exam of the patient. There are NO changes in the patient's condition. Risks, benefits, and alternatives have been discussed and questions answered. Patient agrees to proceed with procedure. Left Knee is the operative knee today.
--- NOTE | 2023-04-23 06:59 | WPDANESEPPF ---
Anes - Initial Pre Proc Eval Procedure: Operation Date: 04/23/23 07:30 Proposed Procedures p Left Total Knee Arthroplasty - Ihsan العراقي MD Date/Time: 04/23/23 06:59 Surgeon: Ihsan العراقي MD Pre Op Diagnosis: OA left knee Patient Data Age: 68 Gender: F Height: 1.6 m Weight: 89.3 kg Last Vital Signs Temp 36.2 C L 04/23/23 06:43 Pulse 78 04/23/23 06:43 Resp 16 04/23/23 06:43 BP 149/79 H 04/23/23 06:43 Pulse Ox 99 04/23/23 06:43 O2 Del Method Room Air 04/23/23 06:43 Allergies Allergy/AdvReac Type Severity Reaction Status Date / Time bupropion Allergy Severe RASH Verified 04/23/23 06:07 oxycodone Allergy Unknown HIVES/ITCHI Verified 04/23/23 06:07 NG red (food color) Allergy Unknown ITCHING Verified 04/23/23 06:07 tramadol Allergy Unknown Itching/HIV Verified 04/23/23 06:07 ES Cggobsg-EYZ-YgG Reductase AdvReac Intermediate intolerance Verified 04/23/23 06:07 Inhibitor [Agueooo-Try-Nuo Reductase Inhibitor] TAPE AdvReac Intermediate WELTS Uncoded 04/23/23 06:07 Home Medications Medication Instructions Recorded Confirmed Type levocetirizine 5 mg tablet 5 mg PO HS 12/19/22 04/23/23 History diclofenac sodium 75 mg 75 mg PO BID 03/06/23 04/23/23 History tablet,delayed release dicyclomine 20 mg tablet 20 mg PO BID 03/06/23 04/23/23 History glipizide 5 mg tablet, extended 5 mg PO DAILY #90 tabs 03/06/23 04/23/23 Rx release 24 hr montelukast 10 mg tablet 10 mg PO HS 03/06/23 04/23/23 History hydrochlorothiazide 12.5 mg tablet 12.5 mg PO DAILY #90 tabs 03/09/23 04/23/23 Rx verapamil 240 mg tablet,extended See Rx Instructions .Route 04/06/23 04/23/23 Rx release .COMPLEX #90 tabs sertraline 25 mg tablet 25 mg PO DAILY #30 tabs 04/10/23 04/23/23 Rx trazodone 50 mg tablet 50 mg PO QHS PRN sleep #60 tabs 04/10/23 04/23/23 Rx clonazepam 0.5 mg tablet 0.5 mg PO HS 04/16/23 04/23/23 History cyanocobalamin (vitamin B-12) 500 500 mcg PO DAILY 04/16/23 04/23/23 History mcg tablet metformin 500 mg tablet,extended 500 mg PO BID 04/16/23 04/23/23 History release 24 hr rivaroxaban 10 mg tablet (Xarelto) 10 mg PO DAILY PE prophylaxis s/p 04/20/23 Rx joint replacement surgery 10 days #10 tabs Laboratory Tests 04/23/23 06:37 POC Capillary Glucose 154 H mg/dl (65-105) Patient hx anesthesia problems: none Family hx anesthesia problems: none Results Review: All pre-operative results and documents have been reviewed as part of the pre-operative evaluation. [facility] Past Medical History Medical History Anxiety Colon cancer screening Depression Diabetes type 2, controlled Fever blister History of melanoma Hypertension IBS (irritable bowel syndrome) Infected sebaceous cyst of skin Osteoarthritis Sleep apnea on cpap followed by ent Surgical History Surgical History History of cholecystectomy History of tonsillectomy Family History Family History Father Family history of diabetes mellitus in first degree relative Patient's father is Mother Family history of lung cancer, Onset Age: 77 Other Diabetes mellitus Family history of arthritis Family history of malignant neoplasm Hypertension Social History Social History Smoking status: Never smoker Additional smoking assessment comments: DENIES ANY FORM OF TOBACCO USE Alcohol intake: current Alcohol use details: rarely Substance use type: does not use Lack of Transportation: No Lack of Food: Never True Current Housing: I Have Housing Concerned About Future Housing: No Difficulty Paying Gas/Electric Bills: No Difficulty Paying for Meds: No Currently Unemployed: No Education: Decline to An
[2023-04-23] MEDS: TRANEXAMIC ACID 1,000MG/ISO100 1,000 MG/100 ML BAG 200 MG IVPB (07:07)
--- NOTE | 2023-04-23 07:19 | WPDANESPNB ---
Anes - Peripheral Nerve Block Date/Time: 04/23/23 07:19 I have discussed with the patient/family/POA the placement of a peripheral nerve block for post-operative pain management, including associated risks, benefits, complications, and side effects. Alternative methods of post-operative analgesia were detailed. Questions were solicited and answers provided to the satisfaction of the patient/family/POA. Time-Out: A pre-procedural Time-Out was completed immediately before starting the procedure and confirmed: Patient Identification, Site, Procedure, Patient Position and the Availability of Requisite Equipment. Clinical Indications: Acute post-operative pain management requested by the operative surgeon. Nerve Block Insertion Note Anes-nerve block: adductor canal left Patient position: supine Skin prep: chlorhexidine Needle: 22 gauge, stimulating, insulated echogenic needle. Needle length: 80 mm Technique: ultrasound Injectate: bupivacaine 0.5% with epi 5 mcg/ml (30cc - no epi) Observations: tolerated well Complications: none Procedure start time:: 719 Procedure end time:: 724
[2023-04-23] MEDS: ceFAZolin 2 GM/D5W 50 ML 2 GM/50 ML BAG IVPB ×3 (07:40→23:56)
[2023-04-23] MEDS: BUPIVACAINE/EPINEPHRINE 0.5% 30 ML VIAL INFILTRATE (08:05)
[2023-04-23] MEDS: TRANEXAMIC ACID 1,000 MG/10 ML AMPUL 1000 MG IV PUSH (09:05)
[2023-04-23] MEDS: ceFAZolin SODIUM 1 GM VIAL IV PUSH (09:06)
--- NOTE | 2023-04-23 09:16 | W.PM.PROC2 ---
Procedure Note - Detailed Date of Procedure 04/23/23 Pre-op Diagnosis Osteoarthritis left knee Post-op Diagnosis Same Procedure Performed LEFT total knee arthroplasty Surgeon Ihsan العراقي MD [employer]borne Operations Manager [employer] Anesthesia General Indications Pain, arthritis and deformity Description of Procedure The patient was brought to operating room #7. A general anesthetic was administered. Placed on the operating table and sterilely prepped and draped in usual manner. A longitudinal incision was made. Tourniquet inflated to 300 mmHg for a total of 45 minutes. Dissection was carried down to the fascia. Medial parapatellar incision was made and the patella subluxated laterally. Patella cut from 18 to 14 mm and sized for a 34 mm button. The tibia was cut perpendicular to the long axis and femur cut in 5 degrees of valgus. A 65 femur trialed. 67 tibia was felt to fit the best. The soft tissues balanced, hemostasis obtained. All [address], 67 tibia, 65 femur, 10 mm patella, and 34 mm poly. Motion was 0-125 degrees with good stability in both flexion and extension. The wound was closed with #2 Vicryl, 2-0 Vicryl and sarah. [employer] Estimated Blood Loss 200 Drains No Packing No Pathology None sent Complications No immediate complications Condition Stable Disposition PACU [facility] Billing Surgery - Charge Forward: Surgery Billing ([id number] LEFT Total Knee)
[2023-04-23] MEDS: LACTATED RINGERS 1,000 ML 30 ML IV CONT (09:45)
[2023-04-23 09:52] LABS: Glucose Point of Care 234 mg/dl (65-105)
[2023-04-23] MEDS: INSULIN HUMAN REGULAR (*BKC) 100 UNITS/ML IV PUSH (09:59)
[2023-04-23] MEDS: fentaNYL CITRATE INJ (*CRX) 100 MCG/2 ML VIAL 25 MCG IV PUSH ×4 (10:10→10:24)
[2023-04-23 10:41] LABS: Glucose Point of Care 248 mg/dl (65-105)
--- NOTE | 2023-04-23 10:42 | SUR.PHASEI ---
1040 - dr. benitez aware of accucheck of 248. no orders received at this time.
[2023-04-23] MEDS: HYDROcodone/acetaminophen (*CRX) 5-325 MG TABLET 1 TAB PO ×2 (11:26→15:32)
[2023-04-23] MEDS: SODIUM CHLORIDE 0.9% IV 1,000 ML 125 ML IV CONT (11:27)
--- NOTE | 2023-04-23 11:34 | ADMGEN ---
This patient, Oumou Valerio, was admitted to [facility] Room 324-01. Patient/family oriented to hospital policies and general routines including ID bracelet, bed and alarms, visiting hours, pain management, procedures, bathroom and other care routines, personal items, smoking policy, room service/diet, and visiting hours. Information on how to activate the Rapid Response Team has been discussed. Patient/Family are encouraged to report perceived risks to care and to ask questions if they do not understand what they are told or what they should do.
[2023-04-23 11:48] LABS: Glucose Point of Care 206 mg/dl (65-105)
--- NOTE | 2023-04-23 15:24 | WPDCN ---
Assessment and Plan Assessment and plan (1) Arthritis of left knee: Code(s): M17.12 - Unilateral primary osteoarthritis, left knee Status: Acute Assessment and Plan: Postoperative day 0 status post left total knee arthroplasty. Wound care, pain control, DVT prophylaxis deferred to Dr. العراقي. Check baseline labs in a.m. (2) Hypertension: Code(s): I10 - Essential (primary) hypertension Status: Acute Assessment and Plan: Postoperative blood pressures were reviewed, stable in the 130s to 140 systolic. Resume hydrochlorothiazide 12.5 mg and verapamil 250 mg daily. Continue to monitor blood pressures daily. (3) Obstructive sleep apnea on CPAP: Code(s): G47.33 - Obstructive sleep apnea (adult) (pediatric) Status: Acute Assessment and Plan: Patient states compliant with CPAP at home. CPAP will be provided for the patient to use while hospitalized. (4) Type 2 diabetes mellitus: Code(s): E11.9 - Type 2 diabetes mellitus without complications Status: Acute Assessment and Plan: Recent hemoglobin A1c was 7.5%. Resume glipizide 5 mg daily and metformin 500 mg b.i.d.. Initiate sliding scale insulin, Accu-Cheks, and hypoglycemic protocol. (5) Anxiety and depression: Code(s): F41.9 - Anxiety disorder, unspecified; F32.A - Depression, unspecified Status: Acute Assessment and Plan: No acute issues. Continue clonazepam 0.5 mg at bedtime and sertraline 25 mg daily. Plan Thank you for allowing us to participate in this patient's care. Please do not hesitate to contact us with any questions. HPI Data of Consult Date/Time: 04/23/23 16:00 Requesting Physician: Ihsan العراقي MD Consult Narrative Reason for consult: Medical management. Narrative: This is a very pleasant 68-year-old female with osteoarthritis, hypertension, obstructive sleep apnea, irritable bowel syndrome, and type 2 diabetes mellitus whom the hospitalist service has been consulted for help managing her medical conditions postoperatively. She endorses longstanding pain in her left knee which is not been amenable to conservative outpatient treatment and she elected for replacement today. Her surgery was performed under general anesthesia with no immediate complications documented and an estimated blood loss of 200 mL. Postoperatively she has done well. Her pain is well controlled on hydrocodone. She denies fever, chills, sweats, chest pain, shortness a breath, nausea, and vomiting. On discharge she will be going home with her and he will be helping her out with daily activities as needed. Review of Systems Review of Systems: Twelve systems were reviewed. No recent cold or flu symptoms. No chest or pleuritic pain. No shortness of breath. No history of venous thromboembolism. She believes her chronic medical conditions are well controlled on her home medications. Except as documented, all other systems were reviewed and are negative. [facility] Past Medical History Medical History Anxiety Depression Hypertension Irritable bowel syndrome Melanoma Obstructive sleep apnea on CPAP Osteoarthritis Type 2 diabetes mellitus Surgical History Surgical History History of bilateral carpal tunnel release History of cholecystectomy History of melanoma excision Left arm. History of repair of right rotator cuff History of sinus surgery History of squamous cell carcinoma excision Posterior neck. History of tonsillectomy Family History Family History Father Family history of diabetes mellitus in first degree relative Patient's father is Mother Family history of lung cancer, Onset Age: 77 Other Diabetes mellitus Family history of arthritis Family hi
[2023-04-23] MEDS: metFORMIN HCL XR 500 MG TAB.SR.24H PO (16:21)
[2023-04-23] MEDS: INSULIN ASPART (*BKC) 100 UNITS/ML SUB-Q (16:21)
[2023-04-23] MEDS: DICYCLOMINE HCL 10 MG CAPSULE 20 MG PO (16:21)
[2023-04-23] MEDS: CELECOXIB 200 MG CAPSULE PO (16:21)
[2023-04-23] MEDS: RIVAROXABAN 10 MG TABLET PO (16:21)
[2023-04-23] MEDS: SENNA/DOCUSATE SODIUM TABLET 2 TAB PO (16:21)
[2023-04-23 16:33] LABS: Glucose Point of Care 226 mg/dl (65-105)
[2023-04-23 20:31] LABS: Glucose Point of Care 194 mg/dl (65-105)
[2023-04-23] MEDS: HYDROcodone/acetaminophen (*CRX) 7.5-325 MG TABLET 1 TAB PO (20:37)
[2023-04-23] MEDS: FAMOTIDINE 20 MG TABLET PO (20:38)
[2023-04-23] MEDS: LORATADINE 5 MG TABLET PO (20:39)
[2023-04-23] MEDS: clonazePAM (*CRX) 0.5 MG TABLET PO (20:39)
[2023-04-23] MEDS: MONTELUKAST SODIUM 10 MG TABLET PO (20:39)
[2023-04-24 00:45] VITALS: BP 136/63; PULSE 81; RESP 16; TEMP 36.6; O2SAT 98
[2023-04-24] MEDS: diphenhydrAMINE HCl INJ 50 MG/ML VIAL 25 MG IV PUSH (02:17)
[2023-04-24 04:45] VITALS: BP 147/63; PULSE 93; RESP 18; TEMP 36.6; O2SAT 97
[2023-04-24 07:12] LABS: Basophils Percent Auto 0.2 % (0.2-1.2); Eosinophils Percent Auto 0.2 % (0-4.4); Hematocrit 31.5 % (37.0-47.0); Immature Granulocyte Absolute 0.03 K/mm3 (0.00-0.031); Immature Granulocyte Percent A 0.3 % (0-0.5); Lymphocytes Absolute Auto 2.29 K/mm3 (0.9-3.2); Lymphocytes Percent Auto 25.1 % (18.3-44.2); Mean Corpuscular HGB Conc 31.7 g/dl (32-36); Mean Corpuscular Hemoglobin 26.9 pg (26-34); Mean Corpuscular Volume 84.7 fl (80-100); Mean Platelet Volume 9.9 fl (7.4-10.4); Monocytes Absolute Auto 1.1 K/mm3 (0.1-0.6); Monocytes Percent Auto 12.3 % (2.6-8.5); Neutrophils Absolute Auto 5.6 K/mm3 (1.3-6.7); Neutrophils Percent Auto 61.9 % (45.5-73.1); Platelet Count Result 299 k/mm3 (150-375); Red Blood Count 3.72 M/mm3 (4.2-5.4); Red Cell Distribution Width 13.2 % (11.5-14.5); White Blood Count 9.1 K/mm3 (4.5-10.0)
--- NOTE | 2023-04-24 07:15 | PM.PNORT ---
Progress Note: A&P Assessment and Plan (1) History of knee replacement procedure of left knee: Code(s): Z96.652 - Presence of left artificial knee joint Status: Acute Assessment and Plan: Patient is status post total knee arthroplasty left. She is doing well at this time and can be dismissed. Dismissed medication [place] and Xarelto. Follow up 10 to 14 days for sutures out. Subjective Subjective Date/Time Seen: 04/24/23 07:15 Post Op day: 1 Principal diagnosis: Status post total knee arthroplasty left Review of Systems Musculoskeletal: Musculoskeletal: Reports arthralgias, Reports joint swelling and Reports stiffness Exam Narrative: Patient wiggles toes dressing intact. Objective Data Vital Signs Vital Signs: Vital Signs - 24 hr 04/23/23 09:45 04/23/23 10:00 04/23/23 10:15 Temperature 97.7 F Pulse Rate 79 72 72 Respiratory Rate 13 20 14 Blood Pressure 160/68 H 140/69 120/58 L Pulse Oximetry 95 95 94 Oxygen Delivery Simple Face Mask Room Air Nasal Cannula Oxygen Flow Rate 8 3 04/23/23 10:30 04/23/23 10:45 04/23/23 10:55 Temperature Pulse Rate 70 73 78 Respiratory Rate 12 12 20 Blood Pressure 135/56 L 140/70 143/70 H Pulse Oximetry 94 96 97 Oxygen Delivery Nasal Cannula Nasal Cannula Nasal Cannula Oxygen Flow Rate 3 3 3 04/23/23 11:20 04/23/23 11:45 04/23/23 11:35 Temperature 97.7 F 96.7 F L Pulse Rate 72 68 Respiratory Rate 18 18 Blood Pressure 123/66 134/72 Pulse Oximetry 97 97 94 Oxygen Delivery Room Air Oxygen Flow Rate 04/23/23 12:05 04/23/23 13:05 04/23/23 14:28 Temperature 97.1 F L 96.1 F L Pulse Rate 72 72 Respiratory Rate 16 20 Blood Pressure 146/75 H 146/76 H Pulse Oximetry 95 95 Oxygen Delivery Room Air Oxygen Flow Rate 04/23/23 20:45 04/23/23 20:00 04/23/23 22:40 Temperature 98 F Pulse Rate 79 Respiratory Rate 14 Blood Pressure 137/59 L Pulse Oximetry 97 96 Oxygen Delivery Room Air CPAP Oxygen Flow Rate 04/24/23 00:45 04/24/23 04:45 Temperature 97.8 F 97.8 F Pulse Rate 81 93 Respiratory Rate 16 18 Blood Pressure 136/63 147/63 H Pulse Oximetry 98 97 Oxygen Delivery Oxygen Flow Rate Intake/Output Intake/Output: Intake & Output 04/21/23 04/22/23 04/23/23 04/24/23 22:59 23:59 23:59 23:59 Intake Total 1720 550 Balance 1720 550 Meds/Results Medications: Active Medications Generic Name Dose Route Start Last Admin Trade Name Freq PRN Reason Stop Dose Admin Hydrocodone Bitart/Acetaminophen 1 tab 04/23/23 11:00 04/23/23 20:37 Hydrocodone/Acetaminophen (*Crx) 7.5-325 Mg Tablet PO 1 tab Q6H PRN Administration Pain Rated 7-10 Hydrocodone Bitart/Acetaminophen 1 tab 04/23/23 11:00 04/23/23 15:32 Hydrocodone/Acetaminophen (*Crx) 5-325 Mg Tablet PO 1 tab Q4H PRN Administration Pain Rated 4-6 Celecoxib 200 mg 04/23/23 17:00 04/23/23 16:21 Celecoxib 200 Mg Capsule PO 200 mg BIDWM JERAMY Administration Clonazepam 0.5 mg 04/23/23 21:00 04/23/23 20:39 Clonazepam (*Crx) 0.5 Mg Tablet PO 0.5 mg HS JERAMY Administration Cyclobenzaprine HCl 10 mg 04/23/23 11:00 Cyclobenzaprine Hcl 10 Mg Tablet PO Q8H PRN Spasms Dextrose 12.5 gm 04/23/23 15:34 Dextrose 50% 25 Gm/50 Ml Syringe IV PUSH PRN PRN Hypoglycemia Protocol Dicyclomine HCl 20 mg 04/23/23 17:00 04/23/23 16:21 Dicyclomine Hcl 10 Mg Capsule PO 20 mg BID JERAMY Administration Diphenhydramine HCl 25 mg 04/23/23 11:00 04/24/23 02:17 Diphenhydramine Hcl Inj 50 Mg/Ml Vial IV PUSH 25 mg Q6H PRN Administration Itching Famotidine 20 mg 04/23/23 21:00 04/23/23 20:38 Famotidine 20 Mg Tablet PO 20 mg Q12HR JERAMY Administration Glipizide 5 mg 04/24/23 08:00 Glipizide Xl 5 Mg Tabcr PO DAILY@0800 JERAMY Glucagon 1 mg 04/23/23 15:34 Glucagon For Inj 1 Mg Vial IM PRN PRN Hypoglycemia Protocol Glu
--- NOTE | 2023-04-24 07:17 | PM.DS ---
DS: Admitting Diagnosis Discharge Date 04/23/23 Admitting Diagnosis Degenerative arthritis left knee DS: Discharge Diagnosis Discharge Diagnosis (1) History of knee replacement procedure of left knee: Code(s): Z96.652 - Presence of left artificial knee joint Status: Acute (2) Arthritis of left knee: Code(s): M17.12 - Unilateral primary osteoarthritis, left knee Status: Acute Plan Osteoarthritis left knee. She is status post total knee arthroplasty. Progressing reasonably well at this time. DS: Summary Hospital Course Hospital Course: Patient underwent total knee arthroplasty on the left side for osteoarthritis of the left knee. She has done well postoperatively can be dismissed home. Follow up 10 to 14 days for sutures out. Status at Discharge Functional status at discharge: uses cane/walker Time Spent with Patient Time attestation: Total time spent providing and/or coordinating discharge services: Exam Narrative: On exam the dressings intact neurologically she is intact. She is able ambulate. And wiggle her toes. Neck: Neck: supple Resp: Effort & Inspection: normal respiratory effort Cardio: Rate: regular rate Rhythm: regular rhythm DS: Data Data Completed and Pending Labs on day of discharge: Labs from last 24 hours 04/24/23 04/23/23 04/23/23 06:36 20:07 16:10 WBC Pending RBC Pending Hgb Pending Hct Pending MCV Pending MCH Pending MCHC Pending RDW Pending Plt Count Pending MPV Pending Immature Gran % (Auto) Pending Neut % (Auto) Pending Lymph % (Auto) Pending [place] % (Auto) Pending Eos % (Auto) Pending Baso % (Auto) Pending Lymph # (Auto) Pending [place] # (Auto) Pending Eos # (Auto) Pending Baso # (Auto) Pending Abs Immat Gran (auto) Pending Absolute Neuts (auto) Pending Absolute Nucleated RBC Pending Nucleated RBC % Pending Sodium Pending Potassium Pending Chloride Pending Carbon Dioxide Pending Anion Gap Pending BUN Pending Creatinine Pending Estim Creat Clear Calc Pending Estimated GFR Pending Glucose Pending POC Capillary Glucose 194 H 226 H Calcium Pending Magnesium Pending 04/23/23 04/23/23 04/23/23 11:46 10:38 09:50 WBC RBC Hgb Hct MCV MCH MCHC RDW Plt Count MPV Immature Gran % (Auto) Neut % (Auto) Lymph % (Auto) [place] % (Auto) Eos % (Auto) Baso % (Auto) Lymph # (Auto) [place] # (Auto) Eos # (Auto) Baso # (Auto) Abs Immat Gran (auto) Absolute Neuts (auto) Absolute Nucleated RBC Nucleated RBC % Sodium Potassium Chloride Carbon Dioxide Anion Gap BUN Creatinine Estim Creat Clear Calc Estimated GFR Glucose POC Capillary Glucose 206 H 248 H 234 H Calcium Magnesium Discharge Plan Discharge Patient Disposition: Home, Self-Care Discharge Instructions: Dr. Ihsan العراقي M.D [address] [place] [address] POST-OPERATIVE DISCHARGE INSTRUCTIONS TOTAL KNEE ARTHROPLASTY 1. When resting, do not rest in the chair.When resting, lie on your back, with back flat on the couch or bed, with leg elevated above heart to minimize swelling. You may put a pillow under your head. . Significant swelling could indicate a blood clot and if this occurs call the office (or go to the ER) to have a venous ultrasound. Therefore, do not rest in a chair. 2. At least five times a day spend several minutes stretching your knee into flexion while sitting in the chair and also stretching your knee out straight The abilities to bend your knee fulling and straighten your knee fully are two most important knee functions to focus on during your recovery. 3. It is ok to sit in chair to eat, use the toilet and receive a guest and to do your stretching exercises, but, sitting in a chair will cause your
[2023-04-24 07:27] LABS: Anion Gap 4 mmol/L (8-16); Blood Urea Nitrogen 15 mg/dL (7-17); Calcium 8.3 mg/dL (8.4-10.2); Carbon Dioxide 30 mmol/L (22-30); Chloride 102 mmol/L (98-107); Estimated CRCL calculation 78 ml/min; Estimated Glomerular Filt Rate > 60; Glucose 155 mg/dL (65-110); Magnesium 1.7 mg/dL (1.6-2.3); Potassium 3.4 mmol/L (3.4-5.0); Sodium 136 mmol/L (137-145)
--- NOTE | 2023-04-24 07:40 | P.PNAN_ITS ---
Anes - Prog Note Post-Op Date/Time: 04/24/23 07:40 Cardiovascular status: normal Respiratory status: normal Airway patency: baseline Mental status: baseline Post-Op hydration status: normal Vital Signs: Last Vital Signs Temp 36.6 C 04/24/23 04:45 Pulse 93 04/24/23 04:45 Resp 18 04/24/23 04:45 BP 147/63 H 04/24/23 04:45 Pulse Ox 97 04/24/23 04:45 O2 Del Method CPAP 04/23/23 22:40 O2 Flow Rate 3 04/23/23 10:55 Pain Score (VAS): 03/24 I/O: Intake & Output 04/23/23 04/23/23 04/24/23 15:59 23:59 07:59 Intake Total 1330 290 550 Balance 1330 290 550 Laboratory Tests 04/24/23 06:36 04/24/23 06:36 04/23/23 04/23/23 04/23/23 09:50 10:38 11:46 WBC RBC Hgb Hct MCV MCH MCHC RDW Plt Count MPV Immature Gran % (Auto) Neut % (Auto) Lymph % (Auto) [place] % (Auto) Eos % (Auto) Baso % (Auto) Lymph # (Auto) [place] # (Auto) Eos # (Auto) Baso # (Auto) Abs Immat Gran (auto) Absolute Neuts (auto) Absolute Nucleated RBC Nucleated RBC % Sodium Potassium Chloride Carbon Dioxide Anion Gap BUN Creatinine Estim Creat Clear Calc Estimated GFR Glucose POC Capillary Glucose 234 H 248 H 206 H Calcium Magnesium 04/23/23 04/23/23 04/24/23 16:10 20:07 06:36 WBC 9.1 RBC 3.72 L Hgb 10.0 L Hct 31.5 L MCV 84.7 MCH 26.9 MCHC 31.7 L RDW 13.2 Plt Count 299 MPV 9.9 Immature Gran % (Auto) 0.3 Neut % (Auto) 61.9 Lymph % (Auto) 25.1 [place] % (Auto) 12.3 H Eos % (Auto) 0.2 Baso % (Auto) 0.2 Lymph # (Auto) 2.29 [place] # (Auto) 1.1 H Eos # (Auto) 0.0 Baso # (Auto) 0.0 Abs Immat Gran (auto) 0.03 Absolute Neuts (auto) 5.6 Absolute Nucleated RBC 0.0 Nucleated RBC % 0.0 Sodium 136 L Potassium 3.4 Chloride 102 Carbon Dioxide 30 Anion Gap 4 L BUN 15 D Creatinine 0.60 L Estim Creat Clear Calc 78 Estimated GFR > 60 Glucose 155 H POC Capillary Glucose 226 H 194 H Calcium 8.3 L Magnesium 1.7 Post-procedural complaints: none Patient Feedback: Patient satisfied with anesthetic care.
[2023-04-24 08:01] LABS: Glucose Point of Care 148 mg/dl (65-105)
[2023-04-24 08:21] VITALS: BP 155/74; PULSE 88; RESP 20; TEMP 36.5; O2SAT 96
[2023-04-24] MEDS: ceFAZolin 2 GM/D5W 50 ML 2 GM/50 ML BAG IVPB (08:44)
[2023-04-24] MEDS: metFORMIN HCL XR 500 MG TAB.SR.24H PO (08:44)
[2023-04-24] MEDS: polyethylene glycoL 3350 17 GM POWD.PACK PO (08:45)
[2023-04-24] MEDS: CELECOXIB 200 MG CAPSULE PO (08:45)
[2023-04-24] MEDS: SENNA/DOCUSATE SODIUM TABLET 2 TAB PO (08:45)
[2023-04-24] MEDS: SERTRALINE HCL 25 MG TABLET PO (08:45)
[2023-04-24] MEDS: FAMOTIDINE 20 MG TABLET PO (08:45)
[2023-04-24] MEDS: VERAPAMIL HCL ER 240 MG TABLET.ER PO (08:45)
[2023-04-24] MEDS: hydroCHLOROthiazide 12.5 MG CAPSULE PO (08:45)
[2023-04-24] MEDS: DICYCLOMINE HCL 10 MG CAPSULE 20 MG PO (08:45)
[2023-04-24] MEDS: glipiZIDE XL 5 MG TABCR PO (08:45)
[2023-04-24 11:24] VITALS: BP 154/77; PULSE 86; TEMP 36.5; O2SAT 95
[2023-04-24 11:27] LABS: Glucose Point of Care 170 mg/dl (65-105)
== END 2023-04-24 11:50 | disposition home or self-care (01) ==
LOC: ANHSURGERY 05:56 → ANH3MEDSUR 11:12
PROVIDERS: PCP Family Medicine; Visit Provider Orthopaedic Surgery
PROC: (CPT 27447; principal; 2023-04-23 07:30)
DX: M17.12 Unilateral primary osteoarthritis, left knee (principal); G89.18 Other acute postprocedural pain; E11.9 Type 2 diabetes mellitus without complications; I10 Essential (primary) hypertension; G47.33 Obstructive sleep apnea (adult) (pediatric); Z85.820 Personal history of malignant melanoma of skin; F41.8 Other specified anxiety disorders
CPT/HCPCS: 27447; 64447; 36415; 73560; 80048; 82948; 83735; 85025; 97110; 97116; 97161; 97165; 97530; 97535; A9270; C1713; C1776; J0690; J1100; J1200; J1815; J2250; J2405; J3010; J3370; J7030; J7120

== ENCOUNTER 2023-06-29 11:00 | Outpatient (RCR) | payer MEDICARE, SELFPAY ==
--- NOTE | 2023-04-30 14:04 | OPREHPOC ---
Outpatient Therapy Plan of Care This is a Multidisciplinary Plan of Care that may contain components documented by all disciplines (PT, OT, and ST.) PT Problem 1 PT Problem #1 Knowledge Deficit PT Goal 1 Goal Pt to be IND with issued HEP Target Visit 20 PT Problem 2 PT Problem #2 Pain PT Goal 1 Goal Pt to report knee pain no greater than 3/10 in the last week Target Visit 20 PT Goal 2 Goal Pt to report 75% improvement in overall symptoms. Target Visit 20 PT Problem 3 PT Problem #3 Impaired Range of Motion PT Goal 1 Goal Pt to improve passive knee flexion ROM to 115 deg Target Visit 20 PT Goal 2 Goal Pt to improve passive knee extension ROM to no greater than 3 deg. Target Visit 20 PT Problem 4 PT Problem #4 Impaired Gait PT Goal 1 Goal Pt to improve 2 min walk distance from 140ft to 300ft without AD. Target Visit 20 PT Goal 2 Goal Pt to report 15 mins of consistent walking. Target Visit 20 PT Problem 5 PT Problem #5 Impaired Strength PT Goal 1 Goal Pt to improve 5xSTS from 38s to 15s without UE support. Target Visit 20
--- NOTE | 2023-04-30 14:04 | PTOPEVAL1 ---
Assessment and note entered by Peggy Pickett, PT, DPT Evaluation Information Assessment Status Evaluation Diagnosis L TKA Onset 04/24/23 Subjective Information Pt states she had a TKA on 04/24/23. She reports little to no pain and has not had to take a pain pill. She reports good compliance with her HEP. She states she has been getting up and down often and is doing a good amount of walking around her home. Pt states one of her halfway goals would be to go on a 20 mins walk. Reported Pain Level Pain Score 2: Self Report Assessment PT Clinical Summary Oumou presents to therapy today for her initial evaluation following a L TKA on 04/24/23. Today she demonstrates decreased active and passive knee ROM, actively she is -10 to 82 deg. She currently ambulates with a wheeled walker, an antalgic gait, and with a decreased gait speed. She demonstrates decreased strength and function consisted with her diagnosis. Skilled therapy services are indicated to address the deficits noted above, to improved mobility, and to return to OF. Plan of Care Interventions Electrical Stimulation,Gait Training,Hot Pack/Cold Pack,Intermittent Compression PT Services Indicated Yes Treatment Frequency and 2x/wk for 20 visits Duration These treatments will address the objective and functional deficits as defined above. The patient will be advanced safely and appropriately in order for the patient to progress towards his/her prior level of function. Additional exercises will be introduced and as well as a comprehensive home exercise program upon discharge, if needed, ?to ensure carryover of functional gains achieved in the clinic. This treatment plan has been reviewed and agreement upon by the patient.
--- NOTE | 2023-05-07 08:52 | PCPTNOTE ---
Patient called & cancelled scheduled appointment this date due to not feeling well.
--- NOTE | 2023-05-24 16:28 | PTOPPROGNS ---
Assessment and note entered by Peggy Pickett, PT, DPT Evaluation Information Assessment Status Progress Diagnosis L TKA Onset 04/24/23 Subjective Information Pt states overall things are going better than she expected. She states her swelling has decreased significantly since starting. She states she is still a little fearful of falling, for this reason she is still using a walker when out of her home. Assessment PT Clinical Summary Oumou presents to therapy today for her progress report following 8 visits of skilled therapy following a L TKA on 04/24/23. Today she demonstrates improved knee ROM to 104 deg of motion but is still decreased from expected. She demonstrates improved functional mobility but still decreased strength and stability during stairs ambulation. She continues to demonstrate gait deviations as well. Continuation of skilled therapy services are indicated to address the deficits noted above, to improved mobility, to normalize gait, and to return to PLOF. Plan of Care Interventions Electrical Stimulation,Gait Training,Hot Pack/Cold Pack,Intermittent Compression PT Services Indicated Yes Treatment Frequency and 2x/wk for 20 visits, continue per POC Duration These treatments will address the objective and functional deficits as defined above. The patient will be advanced safely and appropriately in order for the patient to progress towards his/her prior level of function. Additional exercises will be introduced and as well as a comprehensive home exercise program upon discharge, if needed, ?to ensure carryover of functional gains achieved in the clinic. This treatment plan has been reviewed and agreement upon by the patient.
--- NOTE | 2023-05-30 14:51 | PCPTNOTE ---
Patient called & cancelled scheduled appointment this date due to being ill.
--- NOTE | 2023-06-04 08:46 | PCPTNOTE ---
Patient called & cancelled scheduled appointment this date due to thinking she broke her toe.
--- NOTE | 2023-06-29 12:16 | OPREHPOC ---
Outpatient Therapy Plan of Care This is a Multidisciplinary Plan of Care that may contain components documented by all disciplines (PT, OT, and ST.) PT Problem 1 PT Problem #1 Knowledge Deficit PT Goal 1 Goal Pt to be IND with issued HEP Target Visit 20 Progress Met Comment 05/24/23: met PT Problem 2 PT Problem #2 Pain PT Goal 1 Goal Pt to report knee pain no greater than 3/10 in the last week Target Visit 20 Progress Met Comment 05/24/23: met PT Goal 2 Goal Pt to report 75% improvement in overall symptoms. Target Visit 20 Progress Met Comment 05/24/23: met, 80% improvement PT Problem 3 PT Problem #3 Impaired Range of Motion PT Goal 1 Goal Pt to improve passive knee flexion ROM to 115 deg Target Visit 20 Progress Met Comment 120 degrees PT Goal 2 Goal Pt to improve passive knee extension ROM to no greater than 3 deg. Target Visit 20 Progress Met PT Problem 4 PT Problem #4 Impaired Gait PT Goal 1 Goal Pt to improve 2 min walk distance from 140ft to 300ft without AD. Target Visit 20 Progress Met Comment 05/24/23: met, 300ft PT Goal 2 Goal Pt to report 15 mins of consistent walking. Target Visit 20 Progress Met PT Problem 5 PT Problem #5 Impaired Strength PT Goal 1 Goal Pt to improve 5xSTS from 38s to 15s without UE support. Target Visit 20 Progress Met
--- NOTE | 2023-06-29 12:16 | PTOPDC ---
Assessment and note entered by Bj Hill, PT Evaluation Information Assessment Status Progress Diagnosis L TKA Onset 04/24/23 Subjective Information Reports that she just returned from a cruise and feels she is doing well. She did a lot of walking on the trip ad feels fairly good about it. Wants to make sure that she is ready to go for her right knee replacement in September. Reported Pain Level Pain Score 0: Self Report Assessment PT Clinical Summary Patient was able to achieve terminal knee extension and full knee flexion functionally this date. Overall feel she is doing much better and comfortable with function. Will be discharged from skilled therapy at this time to [facility]. Plan of Care PT Services Indicated D/C to [facility]
--- NOTE | 2023-06-29 12:22 | PTOPDC ---
Assessment and note entered by Bj Hill, PT Evaluation Information Assessment Status Progress Diagnosis L TKA Onset 04/24/23 Subjective Information Reports that she just returned from a cruise and feels she is doing well. She did a lot of walking on the trip ad feels fairly good about it. Wants to make sure that she is ready to go for her right knee replacement in September. Reported Pain Level Pain Score 0: Self Report Assessment PT Clinical Summary Patient was able to achieve terminal knee extension and full knee flexion functionally this date. Overall feel she is doing much better and comfortable with function. Will be discharged from skilled therapy at this time to [facility]. Plan of Care PT Services Indicated D/C to [facility]
== END 2023-06-29 12:45 | disposition home or self-care (01) ==
LOC: ANHGOSHPT 11:00
PROVIDERS: PCP Emergency Medicine; Visit Provider Orthopaedic Surgery
DX: Z47.1 Aftercare following joint replacement surgery (principal); Z96.652 Presence of left artificial knee joint
CPT/HCPCS: 97110; 97116; 97161; 97530

== ENCOUNTER 2023-09-26 10:05 | Outpatient (CLI) | payer MEDICARE, SELFPAY ==
[2023-09-26 11:51] LABS: Basophils Absolute Auto 0.1 K/mm3 (0.0-0.1); Basophils Percent Auto 0.8 % (0.2-1.2); Eosinophils Absolute Auto 0.3 K/mm3 (0-0.3); Eosinophils Percent Auto 2.9 % (0-4.4); Hematocrit 39.8 % (37.0-47.0); Hemoglobin 12.6 g/dL (12.0-15.0); Immature Granulocyte Absolute 0.04 K/mm3 (0.00-0.031); Immature Granulocyte Percent A 0.5 % (0-0.5); Lymphocytes Absolute Auto 2.34 K/mm3 (0.9-3.2); Lymphocytes Percent Auto 26.9 % (18.3-44.2); Mean Corpuscular HGB Conc 31.7 g/dl (32-36); Mean Corpuscular Hemoglobin 26.4 pg (26-34); Mean Corpuscular Volume 83.3 fl (80-100); Mean Platelet Volume 9.1 fl (7.4-10.4); Monocytes Absolute Auto 0.7 K/mm3 (0.1-0.6); Neutrophils Absolute Auto 5.3 K/mm3 (1.3-6.7); Neutrophils Percent Auto 60.9 % (45.5-73.1); Platelet Count Result 359 k/mm3 (150-375); Red Blood Count 4.78 M/mm3 (4.2-5.4); Red Cell Distribution Width 14.2 % (11.5-14.5); White Blood Count 8.7 K/mm3 (4.5-10.0)
[2023-09-26 12:02] LABS: Albumin Level 4.6 g/dL (3.5-5.1); Anion Gap 10 mmol/L (4-12); Blood Urea Nitrogen 20 mg/dL (7-17); Calcium 9.7 mg/dL (8.4-10.2); Carbon Dioxide 33 mmol/L (22-30); Chloride 96 mmol/L (98-107); Estimated Glomerular Filt Rate > 60; Glucose 135 mg/dL (65-110); Potassium 3.8 mmol/L (3.4-5.0); Sodium 139 mmol/L (137-145)
[2023-09-26 12:08] LABS: Urine Cotinine NEGATIVE
[2023-09-26 13:09] LABS: MRSA (PCR) NOT DETECTED (NOT DETECTE)
[2023-09-26 14:49] LABS: Hemoglobin A1C 7.4 % (<5.7)
== END 2023-09-26 10:06 | disposition home or self-care (01) ==
LOC: ANHSURGERY 10:20
PROVIDERS: Anesthesiology; PCP Emergency Medicine; Visit Provider Orthopaedic Surgery
DX: M17.11 Unilateral primary osteoarthritis, right knee (principal); Z01.818 Encounter for other preprocedural examination; Z51.81 Encounter for therapeutic drug level monitoring
CPT/HCPCS: 36415; 80048; 80307; 82040; 83036; 85025; 86850; 86900; 86901; 87641

== ENCOUNTER 2023-10-01 01:55 | Day surgery (SDC) | payer MEDICARE, SELFPAY ==
[2023-09-26 08:35] VITALS: BP 137/75; PULSE 97; RESP 16; TEMP 36.9; O2SAT 97
--- NOTE | 2023-09-26 10:16 | PC.NURSE ---
Addendum entered by Caimla Ayala RN 09/26/23 11:10: Pt has also been instructeed to take her am Verapamil the am of surgery. Original Note: Report to the Outpatient Waiting Room, entrance under the iron gate pavilion located off [facility], at time __06:00am on date __10/01/23 . Planned Procedure Time: __07:30am . Time changes happen often and if your time is changed the preop area will call you the afternoon before. - You and your visitor will be asked to self-screen and do not enter if you have any COVID symptoms. - A mask is optional within the hospital at this time. Patients may have clear liquids (water, carbonated beverages, clear teas, apple juice) until 3 hours prior to surgery with a maximum of 20 ounces. - No food from midnight until time of surgery Take the following medications with a SIP of water the morning of surgery: __Sertraline and Tylenol if needed DO NOT STOP ANY OF YOUR OTHER PRESCRIPTION MEDICATIONS PRIOR TO SURGERY ?EXCEPT THE FOLLOWING Medications to discontinue per physician ____No vitamins, supplements 3 days prior to surgery per Anesthesia. Date to take last dose___09/27/[address] العراقي office and discuss her Diclofenac instructions preop. Please no make-up, nail vietnamese, hairspray, perfume, deodorant, or body powder the day of surgery. No jewelry (including any body piercings) or valuables the day of surgery, leave them at home. Please take a shower or bath the night before, or the morning of, surgery with an antibacterial soap. Wear comfortable, loose fitting clothing. - Jewelry must be removed prior to entering the operating room. Rings and piercings that are not removed may be cut off. - The hospital will not accept responsibility for valuables. - Please leave all valuables, including medications, at home the day of surgery. If you are going home after surgery, a licensed cdl truck driver must drive you home. - NO public transportation without another adult if you receive anesthesia. - We recommend that an adult stay with you for 24 hours following discharge. - We also recommend that you do not drive, make important decision, drink alcoholic beverages, or take any drugs that were not prescribed by your health care provider for at least 24 hours after your discharge time. Follow any additional instructions given to you from your surgeon. If you or anyone in your household have experienced Covid symptoms in the past week, please notify your surgeon or the nurse liaison at the phone number below for possible testing. Telephone instructions given to ___patient and asked if any additional questions and then verbalized understanding. Patient advised to call surgeon office or pre surgery nurse liaison [phone] if any additional questions.
[2023-09-27 10:57] VITALS: BMI 34.6
--- NOTE | 2023-09-27 13:56 | PM.IMHP ---
H&P: HPI History of Present Illness Date/Time: 09/27/23 13:56 Chief Complaint: Patient has osteoarthritis of the right knee. She has failed conservative treatment like to consider knee replacement surgery. Review of Systems Musculoskeletal: Musculoskeletal: Reports arthralgias, Reports joint swelling and Reports stiffness PMF Past Medical History Medical History (Updated 06/07/23 @ 11:24 by Ihsan العراقي MD) Anxiety Depression Hypertension Irritable bowel syndrome Melanoma Obstructive sleep apnea on CPAP Osteoarthritis Type 2 diabetes mellitus Surgical History Surgical History (Updated 06/07/23 @ 10:47 by Lili Anderson [facility]) History of bilateral carpal tunnel release History of cholecystectomy History of left knee replacement History of melanoma excision Left arm. History of repair of right rotator cuff History of sinus surgery History of squamous cell carcinoma excision Posterior neck. History of tonsillectomy Family History Family History Father Family history of diabetes mellitus in first degree relative Patient's father is Mother Family history of lung cancer, Onset Age: 77 Other Diabetes mellitus Family history of arthritis Family history of malignant neoplasm Hypertension Social History Social History Social History: Surrogate medical decision maker: Clif Valerio, spouse. Code status: Full code. Smoking status: Never smoker Additional smoking assessment comments: NO form of nicotine use Alcohol intake: current Drinks per week: 1 Alcohol use details: Rare alcohol use in moderation. Substance use type: does not use Current Housing: Decline to Answer Concerned About Future Housing: Decline to Answer Difficulty Paying Gas/Electric Bills: Decline to Answer Difficulty Paying for Meds: Decline to Answer Currently Unemployed: Decline to Answer Education: Decline to Answer Difficulty w/ Childcare or Family Care: Decline to Answer Living arrangements: with family Additional living arrangements comments: Occupation/Education: occupation Spiritual care concerns: No Meds Home Medications and Allergies Home Medications Medication Instructions Recorded Confirmed Type dicyclomine 20 mg tablet 20 mg PO BID 03/06/23 09/26/23 History glipizide 5 mg tablet, extended 5 mg PO DAILY #90 tabs 03/06/23 09/26/23 Rx release 24 hr montelukast 10 mg tablet 10 mg PO HS 03/06/23 09/26/23 History verapamil 240 mg tablet,extended See Rx Instructions .Route 04/06/23 09/26/23 Rx release .COMPLEX #90 tabs metformin 500 mg tablet,extended 500 mg PO BID 04/16/23 09/26/23 History release 24 hr diclofenac sodium 75 mg 75 mg PO BID #180 tabs 05/18/23 09/26/23 Rx tablet,delayed release hydrochlorothiazide 12.5 mg tablet 12.5 mg PO DAILY #90 tabs 05/18/23 09/26/23 Rx levocetirizine 5 mg tablet 5 mg PO HS #90 tabs 05/18/23 09/26/23 Rx sertraline 25 mg tablet 25 mg PO DAILY #90 tabs 05/18/23 09/26/23 Rx trazodone 50 mg tablet 50 mg PO QHS PRN sleep #60 tabs 05/18/23 09/26/23 Rx acyclovir 400 mg tablet 400 mg PO DAILY PRN Cold Sores 09/26/23 09/26/23 History Allergies Allergy/AdvReac Type Severity Reaction Status Date / Time bupropion Allergy Intermediate RASH Verified 09/26/23 10:40 oxycodone Allergy Intermediate HIVES/ITCHI Verified 09/26/23 10:40 NG tramadol Allergy Intermediate Itching/HIV Verified 09/26/23 10:40 ES red (food color) Allergy Unknown ITCHING Verified 09/26/23 10:40 Ibwegbo-DZC-DcU Reductase AdvReac Intermediate intolerance Verified 09/26/23 10:40 Inhibitor [Ggxfnyr-Hev-Lwg Reductase Inhibitor] TAPE AdvReac Intermediate WELTS Uncoded 09/26/23 10:40 Exam Narrative: Patient has motion of her right knee from about the 3 to 110?. Varus deformity. Grinding crepitus and
[2023-10-01] VITALS (13 sets, daily range): BP systolic 125–159; BP diastolic 62–89; PULSE 66–88; RESP 14–22; TEMP 36.1–36.8; O2SAT 94–100
--- NOTE | ~2023-10-01 | XR_ITS ---
[id number] Ordering provider: Ihsan العراقي MD History: . POST-OP, RIGHT TKA . Comparison: None. FINDINGS: BONES: No acute fracture or dislocation. JOINT SPACES: Total knee arthroplasty. SOFT TISSUES: Postoperative changes seen anteriorly. IMPRESSION: No acute osseous abnormality right knee. Status post total knee arthroplasty. Consider MRI knee if there is concern for soft tissue internal derangement. Reviewed, dictated and finalized at location A.
[2023-10-01] MEDS: ACETAMINOPHEN 500 MG TABLET 1000 MG PO (06:35)
[2023-10-01] MEDS: LACTATED RINGERS 1,000 ML 30 ML IV CONT ×2 (06:40→09:27)
[2023-10-01 06:45] LABS: Glucose Point of Care 163 mg/dl (65-105)
--- NOTE | 2023-10-01 06:51 | WPDHPUPDATE1 ---
History and Physical Update Update Date/Time: 10/01/23 06:51 History and Physical has been reviewed, including an updated exam of the patient. There are NO changes in the patient's condition. Risks, benefits, and alternatives have been discussed and questions answered. Patient agrees to proceed with procedure.
[2023-10-01] MEDS: TRANEXAMIC ACID 1,000MG/ISO100 1,000 MG/100 ML BAG 200 MG IVPB (07:06)
--- NOTE | 2023-10-01 07:14 | WPDANESEPPF ---
Anes - Initial Pre Proc Eval Procedure: Operation Date: 10/01/23 07:30 Proposed Procedures p Right Total Knee Arthroplasty - Ihsan العراقي MD Date/Time: 10/01/23 07:14 Surgeon: Ihsan العراقي MD Pre Op Diagnosis: O A Rt Knee Patient Data Age: 68 Gender: F Height: 1.61 m Weight: 89.4 kg Last Vital Signs Temp 97.5 F L 10/01/23 06:47 Pulse 84 10/01/23 06:47 Resp 16 10/01/23 06:47 BP 159/87 H 10/01/23 06:47 Pulse Ox 97 10/01/23 06:47 O2 Del Method Room Air 10/01/23 06:47 Allergies Allergy/AdvReac Type Severity Reaction Status Date / Time bupropion Allergy Intermediate RASH Verified 10/01/23 07:06 oxycodone Allergy Intermediate HIVES/ITCHI Verified 10/01/23 07:06 NG tramadol Allergy Intermediate Itching/HIV Verified 10/01/23 07:06 ES red (food color) Allergy Unknown ITCHING Verified 10/01/23 07:06 Nbpzifu-OUO-FiP Reductase AdvReac Intermediate intolerance Verified 10/01/23 07:06 Inhibitor [Grhisgd-Gmt-Zwd Reductase Inhibitor] TAPE AdvReac Intermediate WELTS Uncoded 10/01/23 07:06 Home Medications Medication Instructions Recorded Confirmed Type dicyclomine 20 mg tablet 20 mg PO BID 03/06/23 10/01/23 History glipizide 5 mg tablet, extended 5 mg PO DAILY #90 tabs 03/06/23 10/01/23 Rx release 24 hr montelukast 10 mg tablet 10 mg PO HS 03/06/23 10/01/23 History verapamil 240 mg tablet,extended See Rx Instructions .Route 04/06/23 10/01/23 Rx release .COMPLEX #90 tabs metformin 500 mg tablet,extended 500 mg PO BID 04/16/23 10/01/23 History release 24 hr diclofenac sodium 75 mg 75 mg PO BID #180 tabs 05/18/23 10/01/23 Rx tablet,delayed release hydrochlorothiazide 12.5 mg tablet 12.5 mg PO DAILY #90 tabs 05/18/23 10/01/23 Rx levocetirizine 5 mg tablet 5 mg PO HS #90 tabs 05/18/23 10/01/23 Rx sertraline 25 mg tablet 25 mg PO DAILY #90 tabs 05/18/23 10/01/23 Rx trazodone 50 mg tablet 50 mg PO QHS PRN sleep #60 tabs 05/18/23 10/01/23 Rx acyclovir 400 mg tablet 400 mg PO DAILY PRN Cold Sores 09/26/23 09/26/23 History rivaroxaban 10 mg tablet (Xarelto) 10 mg PO DAILY PE prophylaxis s/p 10/01/23 Rx joint replacement 10 days #10 tabs Laboratory Tests 10/01/23 06:41 POC Capillary Glucose 163 H mg/dl (65-105) Patient hx anesthesia problems: none Family hx anesthesia problems: none Results Review: All pre-operative results and documents have been reviewed as part of the pre-operative evaluation. [facility] Past Medical History Medical History Anxiety Depression Hypertension Irritable bowel syndrome Melanoma Obstructive sleep apnea on CPAP Osteoarthritis Type 2 diabetes mellitus Surgical History Surgical History History of bilateral carpal tunnel release History of cholecystectomy History of left knee replacement History of melanoma excision Left arm. History of repair of right rotator cuff History of sinus surgery History of squamous cell carcinoma excision Posterior neck. History of tonsillectomy Family History Family History Father Family history of diabetes mellitus in first degree relative Patient's father is Mother Family history of lung cancer, Onset Age: 77 Other Diabetes mellitus Family history of arthritis Family history of malignant neoplasm Hypertension Social History Social History Social History: Surrogate medical decision maker: Clif Valerio, spouse. Code status: Full code. Smoking status: Never smoker Additional smoking assessment comments: NO form of nicotine use Alcohol intake: current Drinks per week: 1 Alcohol use details: Rare alcohol use in moderation. Substance use type: does not use Current Housing: [facility]
--- NOTE | 2023-10-01 07:30 | WPDANESPNB ---
Anes - Peripheral Nerve Block Date/Time: 10/01/23 07:30 I have discussed with the patient/family/POA the placement of a peripheral nerve block for post-operative pain management, including associated risks, benefits, complications, and side effects. Alternative methods of post-operative analgesia were detailed. Questions were solicited and answers provided to the satisfaction of the patient/family/POA. Time-Out: A pre-procedural Time-Out was completed immediately before starting the procedure and confirmed: Patient Identification, Site, Procedure, Patient Position and the Availability of Requisite Equipment. Clinical Indications: Acute post-operative pain management requested by the operative surgeon. Nerve Block Insertion Note Anes-nerve block: adductor canal right Patient position: supine Needle: 22 gauge, stimulating, insulated echogenic needle. Needle length: 80 mm Technique: ultrasound Injectate: other (Bupiv 0.5%, 15 mls. ) Observations: tolerated well Complications: none Procedure start time:: 722 Procedure end time:: 727
[2023-10-01] MEDS: ceFAZolin 2 GM/D5W 50 ML 2 GM/50 ML BAG IVPB ×3 (07:31→23:05)
[2023-10-01] MEDS: VANCOMYCIN 1,000 MG/NS 250 ML 1,000 MG/250 ML BAG 250 MG IVPB (07:57)
[2023-10-01] MEDS: GENTAMICIN BONE CEMENT REFOBACIN 1 EACH TOPICAL (08:42)
--- NOTE | 2023-10-01 08:58 | P.OP_ITS ---
Procedure Note - Detailed Date of Procedure 10/01/23 Pre-op Diagnosis Osteoarthritis RIGHT Knee Post-op Diagnosis Same Procedure Performed RIGHT total knee arthroplasty Surgeon Ihsan العراقي MD Anesthesia General Indications Pain and Arthritis Description of Procedure The patient was brought to operating room #8. A general anesthetic was administered. Placed on the operating table and sterilely prepped and draped in usual manner. A longitudinal incision was made. Tourniquet inflated to 300 mmHg for a total of 40 minutes. Dissection was carried down to the fascia. Medial parapatellar incision was made and the patella subluxated laterally. Patella cut from 18 to 14 mm and sized for a 34 mm button. The tibia was cut perpendicular to the long axis and femur cut in 5 degrees of valgus. A 62.5mm femur trialed. 63mm tibia was felt to fit the best. The soft tissues balanced, hemostasis obtained. All [address], 63 tibia, 62.5 femur, 34 mm patella, and 10 mm poly. Motion was 0-125 degrees with good stability in both flexion and extension. The wound was closed with #2 Vicryl, 2- 0 Vicryl and sarah. [employer] Estimated Blood Loss 200 Drains No Packing No Pathology None sent Complications No immediate complications Condition Stable Disposition PACU [facility] Billing Surgery - Charge Forward: Surgery Billing ([id number] Right TKA)
[2023-10-01 09:37] LABS: Glucose Point of Care 215 mg/dl (65-105)
[2023-10-01] MEDS: fentaNYL CITRATE INJ (*CRX) 100 MCG/2 ML VIAL 25 MCG IV PUSH ×3 (09:45→10:06)
--- NOTE | 2023-10-01 10:35 | PC.NURSE ---
This patient, Oumou Valerio, was admitted to [facility] Surg Room 323-02 at 10:25. Patient/family oriented to hospital policies and general routines including ID bracelet, bed and alarms, visiting hours, pain management, procedures, bathroom and other care routines, personal items, smoking policy, room service/diet, and visiting hours. Information on how to activate the Rapid Response Team has been discussed. Patient/Family are encouraged to report perceived risks to care and to ask questions if they do not understand what they are told or what they should do.
[2023-10-01] MEDS: DICYCLOMINE HCL 10 MG CAPSULE 20 MG PO ×2 (11:11→16:15)
[2023-10-01] MEDS: metFORMIN HCL XR 500 MG TAB.SR.24H PO ×2 (11:11→16:15)
[2023-10-01] MEDS: VERAPAMIL HCL ER 240 MG TABLET.ER PO (11:12)
[2023-10-01] MEDS: hydroCHLOROthiazide 12.5 MG CAPSULE PO (11:12)
[2023-10-01] MEDS: SERTRALINE HCL 25 MG TABLET PO (11:12)
[2023-10-01 12:00] LABS: Glucose Point of Care 239 mg/dl (65-105)
[2023-10-01] MEDS: HYDROcodone/acetaminophen (*CRX) 7.5-325 MG TABLET 1 TAB PO (13:44)
--- NOTE | 2023-10-01 16:02 | PCPTNOTE ---
On 10/01/23, the student, [Riya Mejia], provided care and completed [facility] documentation on this patient. I have reviewed the student's documentation and agree with the findings.
[2023-10-01] MEDS: RIVAROXABAN 10 MG TABLET PO (16:15)
[2023-10-01] MEDS: CELECOXIB 200 MG CAPSULE PO (16:15)
[2023-10-01] MEDS: SENNA/DOCUSATE SODIUM TABLET 2 TAB PO (16:15)
[2023-10-01 16:50] LABS: Glucose Point of Care 201 mg/dl (65-105)
[2023-10-01] MEDS: HYDROmorphone HCL INJ (*CRX) 1 MG/ML SYR 0.5 MG IV PUSH (18:13)
[2023-10-01] MEDS: FAMOTIDINE 20 MG TABLET PO (20:17)
[2023-10-01] MEDS: MONTELUKAST SODIUM 10 MG TABLET PO (20:17)
[2023-10-01] MEDS: HYDROcodone/acetaminophen (*CRX) 5-325 MG TABLET 1 TAB PO (21:22)
[2023-10-01] MEDS: diphenhydrAMINE HCl INJ 50 MG/ML VIAL 25 MG IV PUSH (23:05)
[2023-10-02 00:01] VITALS: BP 158/78; PULSE 83; RESP 20; TEMP 36.6; O2SAT 98
[2023-10-02 03:29] VITALS: PULSE 83; RESP 18; O2SAT 98
[2023-10-02 04:01] VITALS: BP 160/80; PULSE 96; RESP 16; TEMP 36.6; O2SAT 97
[2023-10-02 04:18] LABS: Glucose Point of Care 163 mg/dl (65-105)
[2023-10-02 06:49] LABS: Basophils Absolute Auto 0.1 K/mm3 (0.0-0.1); Basophils Percent Auto 0.5 % (0.2-1.2); Eosinophils Absolute Auto 0.1 K/mm3 (0-0.3); Eosinophils Percent Auto 0.7 % (0-4.4); Hematocrit 32.9 % (37.0-47.0); Hemoglobin 10.9 g/dL (12.0-15.0); Immature Granulocyte Absolute 0.06 K/mm3 (0.00-0.031); Immature Granulocyte Percent A 0.5 % (0-0.5); Lymphocytes Absolute Auto 1.22 K/mm3 (0.9-3.2); Lymphocytes Percent Auto 9.4 % (18.3-44.2); Mean Corpuscular HGB Conc 33.1 g/dl (32-36); Mean Corpuscular Hemoglobin 27.3 pg (26-34); Mean Corpuscular Volume 82.5 fl (80-100); Mean Platelet Volume 9.3 fl (7.4-10.4); Monocytes Absolute Auto 1.2 K/mm3 (0.1-0.6); Monocytes Percent Auto 9.4 % (2.6-8.5); Neutrophils Absolute Auto 10.4 K/mm3 (1.3-6.7); Neutrophils Percent Auto 79.5 % (45.5-73.1); Platelet Count Result 293 k/mm3 (150-375); Red Blood Count 3.99 M/mm3 (4.2-5.4)
[2023-10-02 06:56] LABS: Anion Gap 12 mmol/L (4-12); Blood Urea Nitrogen 19 mg/dL (7-17); Calcium 8.9 mg/dL (8.4-10.2); Carbon Dioxide 30 mmol/L (22-30); Chloride 92 mmol/L (98-107); Estimated CRCL calculation 69 ml/min; Estimated Glomerular Filt Rate > 60; Glucose 173 mg/dL (65-110); Potassium 3.7 mmol/L (3.4-5.0); Sodium 134 mmol/L (137-145)
--- NOTE | 2023-10-02 07:17 | PM.PNORT ---
Progress Note: A&P Assessment and Plan (1) History of knee replacement procedure of right knee: Code(s): Z96.651 - Presence of right artificial knee joint Status: Acute Assessment and Plan: S/P TKA RIGHT. Doing well. Home today. Subjective Subjective Date/Time Seen: 10/02/23 07:17 Post Op day: 1 Principal diagnosis: S/P TKA RIGHT Review of Systems Musculoskeletal: Musculoskeletal: Reports arthralgias, Reports joint swelling and Reports stiffness Exam Narrative: NVI. Ambulates independently. Dressing intact Objective Data Vital Signs Vital Signs: Vital Signs - 24 hr 10/01/23 09:27 10/01/23 09:40 10/01/23 09:55 Temperature 97.5 F L Pulse Rate 82 78 70 Respiratory Rate 20 14 14 Blood Pressure 148/68 H 125/89 142/73 H Pulse Oximetry 100 95 99 Oxygen Delivery Simple Face Mask Room Air Nasal Cannula Oxygen Flow Rate 8 3 10/01/23 10:10 10/01/23 10:30 10/01/23 10:45 Temperature 97.0 F L 97.4 F L Pulse Rate 66 70 76 Respiratory Rate 16 17 16 Blood Pressure 138/75 146/85 H 151/68 H Pulse Oximetry 94 99 100 Oxygen Delivery Nasal Cannula Oxygen Flow Rate 3 10/01/23 11:15 10/01/23 12:15 10/01/23 13:35 Temperature 97.8 F 97.3 F L Pulse Rate 72 76 Respiratory Rate 16 16 Blood Pressure 155/74 H 151/67 H Pulse Oximetry 98 98 Oxygen Delivery Room Air Oxygen Flow Rate 10/01/23 16:20 10/01/23 20:00 10/01/23 20:01 Temperature 97.8 F 98.2 F Pulse Rate 85 85 88 Respiratory Rate 17 17 22 H Blood Pressure 155/69 H 153/62 H Pulse Oximetry 97 97 98 Oxygen Delivery Room Air Oxygen Flow Rate 10/01/23 21:45 10/02/23 00:01 10/02/23 03:29 Temperature 98 F Pulse Rate 88 83 83 Respiratory Rate 17 20 18 Blood Pressure 158/78 H Pulse Oximetry 98 98 98 Oxygen Delivery Autopap Autopap Oxygen Flow Rate 10/02/23 04:01 Temperature 97.8 F Pulse Rate 96 Respiratory Rate 16 Blood Pressure 160/80 H Pulse Oximetry 97 Oxygen Delivery Oxygen Flow Rate Intake/Output Intake/Output: Intake & Output 09/29/23 09/30/23 10/01/23 10/02/23 23:59 23:59 23:59 23:59 Intake Total 2230 Balance 2230 Meds/Results Medications: Active Medications Generic Name Dose Route Start Last Admin Trade Name Freq PRN Reason Stop Dose Admin Hydrocodone Bitart/Acetaminophen 1 tab 10/01/23 10:16 10/01/23 21:22 Hydrocodone/Acetaminophen (*Crx) 5-325 Mg Tablet PO 1 tab Q4H PRN Administration Pain Rated 4-6 Hydrocodone Bitart/Acetaminophen 1 tab 10/01/23 10:16 10/01/23 13:44 Hydrocodone/Acetaminophen (*Crx) 7.5-325 Mg Tablet PO 1 tab Q4H PRN Administration Pain Rated 7-10 Celecoxib 200 mg 10/01/23 17:00 10/01/23 16:15 Celecoxib 200 Mg Capsule PO 200 mg BIDWM JERAMY Administration Cyclobenzaprine HCl 10 mg 10/01/23 10:16 Cyclobenzaprine Hcl 10 Mg Tablet PO Q8H PRN Spasms Dicyclomine HCl 20 mg 10/01/23 10:16 10/01/23 16:15 Dicyclomine Hcl 10 Mg Capsule PO 20 mg BID JERAMY Administration Diphenhydramine HCl 25 mg 10/01/23 10:16 10/01/23 23:05 Diphenhydramine Hcl Inj 50 Mg/Ml Vial IV PUSH 25 mg Q6H PRN Administration Itching Famotidine 20 mg 10/01/23 21:00 10/01/23 20:17 Famotidine 20 Mg Tablet PO 20 mg Q12HR JERAMY Administration Hydrochlorothiazide 12.5 mg 10/01/23 10:16 10/01/23 11:12 Hydrochlorothiazide 12.5 Mg Capsule PO 12.5 mg DAILY JERAMY Administration Hydromorphone HCl 1 mg 10/01/23 10:16 Hydromorphone Hcl Inj (*Crx) 1 Mg/Ml Syr IV PUSH Q2H PRN Breakthrough Pain Rated 7-10 or NPO Hydromorphone HCl 0.5 mg 10/01/23 10:16 10/01/23 18:13 Hydromorphone Hcl Inj (*Crx) 1 Mg/Ml Syr IV PUSH 0.5 mg Q2H PRN Administration Breakthrough Pain Rated 4-6 or NPO Cefazolin Sodium 2 gm in 50 mls @ 100 mls/hr 10/01/23 16:00 10/01/23 23:05 Ancef 2 Gm/D5w 50 Ml IVPB 10/02/23 08:29 100 mls/hr Q8H JERAMY Administration Ibuprofen
--- NOTE | 2023-10-02 07:48 | PM.DS ---
DS: Admitting Diagnosis Discharge Date 10/02/2023 Admitting Diagnosis Osteoarthritis Right Knee DS: Discharge Diagnosis Discharge Diagnosis (1) History of knee replacement procedure of right knee: Code(s): Z96.651 - Presence of right artificial knee joint Status: Acute Plan Patient underwent total knee arthroplasty for osteoarthritis of the right knee. She has done well postoperatively we can we can dismiss. DS: Summary Hospital Course Hospital Course: Patient underwent total knee arthroplasty for osteoarthritis and knee pain right. She has done well postoperatively and is ambulatory just with a walker. Overall she is following typical course and feel it is safe to send home. If she has any changes or problems she will call. Discussed risks benefits limitations and alternatives. Time Spent with Patient Time attestation: Total time spent providing and/or coordinating discharge services: Exam Narrative: On exam she is neurologically intact. Her dressing is intact. She walks with a walker independently. DS: Data Data Completed and Pending Labs on day of discharge: Labs from last 24 hours 10/02/23 10/02/23 10/01/23 06:37 06:36 20:22 WBC 13.0 H RBC 3.99 L Hgb 10.9 L Hct 32.9 L MCV 82.5 MCH 27.3 MCHC 33.1 RDW 14.0 Plt Count 293 MPV 9.3 Immature Gran % (Auto) 0.5 Neut % (Auto) 79.5 H Lymph % (Auto) 9.4 L [place] % (Auto) 9.4 H Eos % (Auto) 0.7 Baso % (Auto) 0.5 Lymph # (Auto) 1.22 [place] # (Auto) 1.2 H Eos # (Auto) 0.1 Baso # (Auto) 0.1 Abs Immat Gran (auto) 0.06 H Absolute Neuts (auto) 10.4 H Absolute Nucleated RBC 0.000 Nucleated RBC % 0.0 Sodium 134 L Potassium 3.7 Chloride 92 L Carbon Dioxide 30 Anion Gap 12 BUN 19 H Creatinine 0.70 Estim Creat Clear Calc 69 Estimated GFR > 60 Glucose 173 H POC Capillary Glucose 163 H Calcium 8.9 10/01/23 10/01/23 10/01/23 16:47 11:52 09:34 WBC RBC Hgb Hct MCV MCH MCHC RDW Plt Count MPV Immature Gran % (Auto) Neut % (Auto) Lymph % (Auto) [place] % (Auto) Eos % (Auto) Baso % (Auto) Lymph # (Auto) [place] # (Auto) Eos # (Auto) Baso # (Auto) Abs Immat Gran (auto) Absolute Neuts (auto) Absolute Nucleated RBC Nucleated RBC % Sodium Potassium Chloride Carbon Dioxide Anion Gap BUN Creatinine Estim Creat Clear Calc Estimated GFR Glucose POC Capillary Glucose 201 H 239 H 215 H Calcium Discharge Plan Discharge Patient Disposition: Home Health Service Discharge Instructions: Dr. Ihsan العراقي M.D [address] [place] [address] POST-OPERATIVE DISCHARGE INSTRUCTIONS TOTAL KNEE ARTHROPLASTY 1. When resting, do not rest in the chair.When resting, lie on your back, with back flat on the couch or bed, with leg elevated above heart to minimize swelling. You may put a pillow under your head. . Significant swelling could indicate a blood clot and if this occurs call the office (or go to the ER) to have a venous ultrasound. Therefore, do not rest in a chair. 2. At least five times a day spend several minutes stretching your knee into flexion while sitting in the chair and also stretching your knee out straight The abilities to bend your knee fulling and straighten your knee fully are two most important knee functions to focus on during your recovery. 3. It is ok to sit in chair to eat, use the toilet and receive a guest and to do your stretching exercises, but, sitting in a chair will cause your leg to swell. Therefore, avoid additional time sitting in the chair. and don't rest in the chair. 4. Wound Care: Nursing will give you an additional Mepilex dressing at the time of discharge. Patient to remove the dressing and apply a new Mepilex dressing at home 7 days after surgery
[2023-10-02 07:52] LABS: Glucose Point of Care 180 mg/dl (65-105)
--- NOTE | 2023-10-02 09:28 | PCOTNOTE ---
Attempted to see Patient for A.M. treatment session at this time. Upon entry to the room. Patient's present and Patient had already performed her self dressing stating she is ready to go home. Therapist informed her she needed to perform OT session prior to being discharged and she declined stating she has already performed and she is just waiting on her IV to be removed and her discharge papers. Therapist asked if she had any questions or if they could practice stepping in/out ofd the shower for additional safety techniques. Patient verbalized she just recently had her Left knee done and she is all set up at home with a shower chair. Patient refused to participate in any activities for OT this session, RN notified and aware.
[2023-10-02] MEDS: DICYCLOMINE HCL 10 MG CAPSULE 20 MG PO (09:40)
[2023-10-02] MEDS: VERAPAMIL HCL ER 240 MG TABLET.ER PO (09:40)
[2023-10-02] MEDS: CELECOXIB 200 MG CAPSULE PO (09:40)
[2023-10-02] MEDS: FAMOTIDINE 20 MG TABLET PO (09:40)
[2023-10-02] MEDS: ceFAZolin 2 GM/D5W 50 ML 2 GM/50 ML BAG IVPB (09:40)
[2023-10-02] MEDS: hydroCHLOROthiazide 12.5 MG CAPSULE PO (09:40)
[2023-10-02] MEDS: metFORMIN HCL XR 500 MG TAB.SR.24H PO (09:40)
[2023-10-02] MEDS: HYDROcodone/acetaminophen (*CRX) 5-325 MG TABLET 1 TAB PO (09:40)
[2023-10-02] MEDS: SERTRALINE HCL 25 MG TABLET PO (09:41)
[2023-10-02] MEDS: ONDANSETRON INJ 4 MG/2 ML VIAL IV PUSH (09:46)
--- NOTE | 2023-10-02 11:23 | PCPTNOTE ---
On 10/02/23, the student, [Riya Mejia], provided care and completed [facility] documentation on this patient. I have reviewed the student's documentation and agree with the findings.
== END 2023-10-02 10:45 | disposition home or self-care (01) ==
LOC: ANHSURGERY 05:59 → ANH3MEDSUR 10:25
PROVIDERS: PCP Emergency Medicine; Visit Provider Orthopaedic Surgery
PROC: (CPT 27447; principal; 2023-10-01 07:30)
DX: M17.11 Unilateral primary osteoarthritis, right knee (principal); I10 Essential (primary) hypertension; E11.9 Type 2 diabetes mellitus without complications; F41.9 Anxiety disorder, unspecified; F32.A Depression, unspecified; K58.9 Irritable bowel syndrome, unspecified; G47.33 Obstructive sleep apnea (adult) (pediatric); G56.03 Carpal tunnel syndrome, bilateral upper limbs; G89.18 Other acute postprocedural pain; E66.9 Obesity, unspecified; Z68.34 Body mass index [BMI] 34.0-34.9, adult; Z79.84 Long term (current) use of oral hypoglycemic drugs; Z79.01 Long term (current) use of anticoagulants; Z98.890 Other specified postprocedural states; Z99.89 Dependence on other enabling machines and devices; Z90.49 Acquired absence of other specified parts of digestive tract; Z85.828 Personal history of other malignant neoplasm of skin; Z80.1 Family history of malignant neoplasm of trachea, bronchus and lung
CPT/HCPCS: 64447; 27447; 36415; 73560; 80048; 82948; 85025; 97110; 97116; 97161; 97165; 97530; A9270; C1713; C1776; J0171; J0690; J1100; J1170; J1200; J2250; J2405; J2704; J2795; J3010; J3370; J7120

== ENCOUNTER 2023-12-13 11:00 | Outpatient (RCR) | payer MEDICARE, SELFPAY ==
--- NOTE | 2023-10-09 11:49 | OPREHPOC ---
Outpatient Therapy Plan of Care This is a Multidisciplinary Plan of Care that may contain components documented by all disciplines (PT, OT, and ST.) PT Problem 1 PT Problem #1 Knowledge Deficit PT Goal 1 Goal / Goal Update Pt to be IND with issued HEP Target Visit 4 PT Problem 2 PT Problem #2 Pain PT Goal 1 Goal / Goal Update Pt to report knee pain no greater than 3/10 in the last week. Target Visit 10 PT Goal 2 Goal / Goal Update Pt to report 75% return to PLOF. Target Visit 8 PT Problem 3 PT Problem #3 Impaired Range of Motion PT Goal 1 Goal / Goal Update Pt to improve passive knee flexion ROM to 120 deg. PT Goal 2 Goal / Goal Update Pt to improve passive knee extension ROM to no more than 3 degrees. Target Visit 10 PT Problem 4 PT Problem #4 Impaired Gait PT Goal 1 Goal / Goal Update Pt to improve 2 min walk distance from 256ft to 350ft. Target Visit 10 PT Goal 2 Goal / Goal Update Pt to ambulate without AD and with minimal deviations.
--- NOTE | 2023-10-09 11:49 | PTOPEVAL1 ---
Assessment and note entered by Peggy Pickett, PT, DPT Evaluation Information Assessment Status Evaluation Diagnosis R TKA ICD-10 Condition Codes (PT) M25.561,Difficulty Walking R26.2,R26.9,Weakness R53.1,Z47.1 Subjective Information Pt has a R TKA on 10/01/23. Overall she states she has some intermittent pain with motion and is also having some swelling. She has been doing home exercises. She is currently walking with a walker. 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 Reported Pain Level Pain Score 1: Self Report Assessment PT Clinical Summary Oumou presents to therapy today for her initial evaluation following a R TKA on 10/01/23. Today she demonstrates s/s consistent with her diagnosis. She has decreased active and passive knee motion, decreased strength, edema, gait deviations, and decreased functional mobility. Skilled therapy services are indicated to address the deficits noted above, to manage pain, and to return to PLOF . Plan of Care Interventions Electrical Stimulation,Gait Training,Hot Pack/Cold Pack,Intermittent Compression,Manual Therapy, Neuro Re-education,Patient/Caregiver Educati, Therapeutic Activities,Therapeutic Exercise PT Services Indicated Yes Treatment Frequency and 2x/wk for 10 visits Duration These treatments will address the objective and functional deficits as defined above. The patient will be advanced safely and appropriately in order for the patient to progress towards his/her prior level of function. Additional exercises will be introduced and as well as a comprehensive home exercise program upon discharge, if needed, ?to ensure carryover of functional gains achieved in the clinic. This treatment plan has been reviewed and agreement upon by the patient.
--- NOTE | 2023-10-16 07:58 | PCPTNOTE ---
Patient canceled this date due to conflicting appointment with surgeon.
--- NOTE | 2023-11-14 12:32 | PTOPPROG ---
Assessment and note entered by Peggy Pickett, PT, DPT Evaluation Information Assessment Status Progress Diagnosis R TKA ICD-10 Condition Codes (PT) M25.561,Difficulty Walking R26.2,R26.9,Weakness R53.1,Z47.1 Subjective Information Pt states she is progressing well. She saw her doctor this week and he is pleased with her progress. States she still struggling with stairs, kneeling, and walking long distances. She has progressed to no assistive device. Assessment PT Clinical Summary Oumou has completed 9 visits of skilled therapy following a R TKA on 10/01/23. Today she demonstrates improved LE strength and ROM but is still decreased from her L knee. She continues to demonstrates deviations with stairs and gait on level surfaces. She also reports being limited with bending and squatting to get on the ground. Continuation of skilled therapy services are indicated to continue progressing towards therapy goals, to improve gait, and to return to PLOF. Plan of Care Interventions Electrical Stimulation,Gait Training,Hot Pack/Cold Pack,Intermittent Compression,Manual Therapy, Neuro Re-education,Patient/Caregiver Educati, Therapeutic Activities,Therapeutic Exercise PT Services Indicated Yes Treatment Frequency and 2x/wk for 10 visits Duration These treatments will address the objective and functional deficits as defined above. The patient will be advanced safely and appropriately in order for the patient to progress towards his/her prior level of function. Additional exercises will be introduced and as well as a comprehensive home exercise program upon discharge, if needed, ?to ensure carryover of functional gains achieved in the clinic. This treatment plan has been reviewed and agreement upon by the patient.
--- NOTE | 2023-11-29 16:23 | PCPTNOTE ---
Patient called & cancelled scheduled appointment this date due to going out of town.
--- NOTE | 2023-12-12 08:21 | PCPTNOTE ---
Patient called & cancelled scheduled appointment on 12/10/23.
--- NOTE | 2023-12-13 11:50 | PTOPDC ---
Assessment and note entered by Peggy Pickett, PT, DPT Evaluation Information Assessment Status Discharge Diagnosis R TKA ICD-10 Condition Codes (PT) M25.561,Difficulty Walking R26.2,R26.9,Weakness R53.1,Z47.1 Subjective Information Pt states she is doing really well, she states she does not feel restricted. She states kneeling and getting up and down from the ground is the biggest challenges, she states she feels this will come with time. She states at times it feels like her balance is lacking. Reported Pain Level Pain Score 0: Self Report Assessment PT Clinical Summary Oumou has completed 14 visits of skilled therapy following a R TKA on 10/01/23. Today she demonstrates improved LE strength and ROM. She has progressed her active knee ROM to 0 - 2 - 110. She has met or progressed well towards all of her therapy goals and reports no functional limitations. She will be d/c'ed at this time, encouraged to continue her HEP to further improve flexion ROM. Plan of Care PT Services Indicated No
== END 2023-12-13 14:15 | disposition home or self-care (01) ==
LOC: ANHGOSHPT 11:00
PROVIDERS: PCP Emergency Medicine; Visit Provider Orthopaedic Surgery
DX: Z47.1 Aftercare following joint replacement surgery (principal); Z96.651 Presence of right artificial knee joint
CPT/HCPCS: 97016; 97110; 97140; 97161; 97530; 97750

== ENCOUNTER 2024-01-31 17:29 | Emergency (ER) | payer MEDICARE, SELFPAY ==
--- NOTE | 2024-01-31 17:48 | ED.URI ---
HPI - URI/Sore Throat General Chief Complaint: Upper Respiratory Infection Stated Complaint: COUGH/EARACHE Time Seen by Provider: 01/31/24 17:48 Source: patient Mode of arrival: ambulatory Limitations: no limitations History of Present Illness HPI Narrative: Cecilia is a 68-year-old female patient presenting to the clinic today with complaints of cough, sinus pressure and congestion, and earache times 10 days. She reports she is coughing up some yellow phlegm. She denies any shortness of breath or chest pain. MD elicited complaint: cough and other (Ear pain) Related Data Home Medications ?Medication ?Instructions ?Recorded ?Confirmed ?Last Taken ?Type metformin 500 mg tablet,extended 500 mg PO BID 04/16/23 01/31/24 09/30/23 History release 24 hr Allergies Allergy/AdvReac Type Severity Reaction Status Date / Time bupropion Allergy Intermediate RASH Verified 01/31/24 17:56 oxycodone Allergy Intermediate HIVES/ITCHI Verified 01/31/24 17:56 NG tramadol Allergy Intermediate Itching/HIV Verified 01/31/24 17:56 ES red (food color) Allergy Unknown ITCHING Verified 01/31/24 17:56 adhesive tape AdvReac Intermediate WELTS Verified 01/31/24 17:56 (paper tape is ok) Lblvvbg-CDS-CnO Reductase AdvReac Intermediate intolerance Verified 01/31/24 17:56 Inhibitor (Tjmvlar-Vkk-Pnu Reductase Inhibitor) Review of Systems Review of Systems: Pertinent positives per HPI. Patient denies any fever, chills, rash, headache, visual changes, dizziness, shortness of breath, chest pain, palpitations, nausea, vomiting, diarrhea, constipation, abdominal pain, or any urinary issues. REPLACED BY [facility] Past Medical History Medical History Melanoma Irritable bowel syndrome Obstructive sleep apnea on CPAP Type 2 diabetes mellitus Depression Anxiety Osteoarthritis Hypertension Surgical History Surgical History Hx of right knee surgery History of left knee replacement History of squamous cell carcinoma excision Posterior neck. History of melanoma excision Left arm. History of sinus surgery History of repair of right rotator cuff History of bilateral carpal tunnel release History of tonsillectomy History of cholecystectomy Family History Family History Father Family history of diabetes mellitus in first degree relative Patient's father is Mother Family history of lung cancer, Onset Age: 77 Sibling Diabetes mellitus Other Family history of arthritis Family history of malignant neoplasm Hypertension Social History Social History Social History: Surrogate medical decision maker: Clif Valerio, spouse. Code status: Full code. Smoking status: Never smoker Second hand tobacco smoke exposure: Yes Additional smoking assessment comments: NO form of nicotine use Alcohol intake: current Drinks per week: 1 Alcohol use details: Rare alcohol use in moderation. 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 There is no relevant family history pertinent to the patient complaint. Exam Narrative: General: Well-developed, well nourished, in no apparent distress Head: Normocephalic, atraumatic Eyes: Pupils equally round and reactive to light bilaterally, EOM intact, sclera and conjunctive clear, no discharge, lids normal Ears: TMs intact and congestion, ear canals clear, no drainage, grossly hearing normal. Nose: Nares patent, yellow nasal discharge, moderate inflammation, maxillary sinus tenderness. Mouth: Oral pharynx without lesions or masses, good dentition, MMM. Neck: Supple, trachea midline, no enlargement of anterior or posterior cervical nodes, no thyroid masses or goiter palpable. Cardio: Regular rate and rhythm, s1 and s2 normal, no murmur appreciated. Resp: Clear to auscultation bilaterally, no rhonchi, rales, wheezing or rubs Course Course Emergency Course: Portions of this record may have been created with voice recognition software. Level of Care: Express Care Visit Vital Signs Vital signs: Vital signs reviewed MDM - URI/Sore Throat MDM Narrative Medical decision making narrative: At the time of visit patient is resting comfortably on the exam table. Patient appears to be nontoxic. Plan: I suspect patient has acute sinusitis. Prescription for Augmentin and prednisone was sent to the pharmacy. Supportive measures were discussed with the patient and they voiced understanding discharge instructions and agrees to treatment plan. Return precautions reviewed Differential Diagnosis Differential diagnosis: Likely upper respiratory infection, otitis media, sinusitis, viral infection, bronchitis, influenza, pharyngitis and other (COVID) Discharge Plan Discharge Clinical Impression: Sinusitis Qualifiers: Sinusitis location: maxillary Chronicity: acute Recurrence: non-recurrent Qualified Code(s): J01.00 - Acute maxillary sinusitis, unspecified Patient Disposition: Home, Self-Care Condition: Stable Instructions: Antibiotic Form, Sinusitis (ED) Additional Instructions: Take prescription medications only as prescribed-Augmentin and prednisone Keep a tight control on your blood sugar Increase fluids and stay well hydrated Tylenol/motrin for pain/fever Flonase and OTC antihistamines as directed Vicks vapor rub to open sinuses Sinus rinses for congestion Cepacol spray, cough drops, throat lozenges, warm tea with honey/lemon, gargle salt water to soothe throat BRAT diet for diarrhea Clear liquids x 24 hours then advance as tolerated for nausea/vomiting Go to the ED if you develop a worsening in your condition- high fever not controlled by Tylenol or Motrin, dehydration, weakness, lethargy, shortness of breath, or chest pain. Follow up with your PCP in 3-5 days if symptoms persist. Patient Language: Irish Prescriptions: New prednisone 20 mg tablet 40 mg PO DAILY 5 Days Qty: 10 0RF amoxicillin-pot clavulanate 875-125 mg tablet 1 tablet PO Q12H 10 Days Qty: 20 0RF No Action Mounjaro 2.5 mg/0.5 mL pen injector 2.5 mg subcut WEEKLY Qty: 2 0RF Rx Instructions: for 4 weeks metformin 500 mg tablet extended release 24 hr 500 mg PO BID montelukast 10 mg tablet See Rx Instructions .ROUTE .COMPLEX Qty: 90 3RF Dose Instruction: TAKE 1 TABLET BY MOUTH EVERY DAY IN THE EVENING Rx Instructions: TAKE 1 TABLET BY MOUTH EVERY DAY IN THE EVENING sertraline 25 mg tablet 25 mg PO DAILY Qty: 30 0RF Rx Instructions: NEEDS AN APPOINTMENT FOR FURTHER REFILLS levocetirizine 5 mg tablet See Rx Instructions .ROUTE .COMPLEX Qty: 90 3RF Dose Instruction: TAKE 1 TABLET BY MOUTH EVERY DAY AT BEDTIME Rx Instructions: TAKE 1 TABLET BY MOUTH EVERY DAY AT BEDTIME diclofenac sodium 75 mg tablet,delayed release (DR/EC) See Rx Instructions .ROUTE .COMPLEX Qty: 180 3RF Dose Instruction: TAKE 1 TABLET BY MOUTH TWICE A DAY Rx Instructions: TAKE 1 TABLET BY MOUTH TWICE A DAY hydrochlorothiazide 12.5 mg tablet See Rx Instructions .ROUTE .COMPLEX Qty: 90 3RF Dose Instruction: TAKE 1 TABLET BY MOUTH EVERY DAY Rx Instructions: TAKE 1 TABLET BY MOUTH EVERY DAY verapamil 240 mg tablet extended release 240 mg PO DAILY Qty: 90 2RF dicyclomine 20 mg tablet 20 mg PO BID Qty: 180 1RF Rx Instructions: TAKE 1 TABLET BY MOUTH TWICE A DAY acyclovir 400 mg tablet 400 mg PO DAILY PRN (Reason: Cold Sores) Qty: 14 4RF trazodone 50 mg tablet See Rx Instructions .ROUTE .COMPLEX Qty: 180 1RF Dose Instruction: TAKE 1 TABLET BY MOUTH EVERY DAY AT BEDTIME NEEDED FOR SLEEP MAY INCREASE TO 2 TABLETS AT BEDTIME AFTER 5 DAYS. Rx Instructions: TAKE 1 TABLET BY MOUTH EVERY DAY AT BEDTIME NEEDED FOR SLEEP MAY INCREASE TO 2 TABLETS AT BEDTIME AFTER 5 DAYS. glipizide 5 mg tablet extended release 24hr See Rx Instructions .ROUTE .COMPLEX Qty: 90 3RF Dose Instruction: TAKE ONE TABLET BY MOUTH ONCE DAILY WITH FOOD Rx Instructions: TAKE ONE TABLET BY MOUTH ONCE DAILY WITH FOOD amoxicillin-pot clavulanate 875-125 mg tablet 1 tablet PO BID Qty: 20 0RF miconazole nitrate 200 mg suppository 200 mg vaginal QHS 3 Days Qty: 3 1RF Follow-up/Referrals: UNKNOWN,DOCTOR [Primary Care Provider] - Time of Disposition: 18:05 Quality NIHSS Nursing Documentation ED NIHSS nursing documentation: reviewed/agree
[2024-01-31 18:03] VITALS: BP 178/114; PULSE 90; RESP 16; TEMP 36.6; O2SAT 100
== END 2024-01-31 18:22 | disposition home or self-care (01) ==
PROVIDERS: Emergency Provider Nurse Practitioner Family
DX: J01.00 Acute maxillary sinusitis, unspecified (principal); E11.9 Type 2 diabetes mellitus without complications; I10 Essential (primary) hypertension
CPT/HCPCS: 99213; G0463

== ENCOUNTER 2024-02-14 14:20 | Outpatient (CLI) | payer MEDICARE, SELFPAY ==
--- NOTE | ~2024-02-14 | XR_ITS ---
CHEST RADIOGRAPH, PA AND LATERAL CLINICAL HISTORY: R05.9 - Cough, unspecified . COMPARISON: 10/17/2021 TECHNIQUE: PA and lateral views of the chest. FINDINGS The cardiomediastinal silhouette is unremarkable. Interval development of multiple 3 and 4 mm nodules anterior to and within the lung parenchyma (best seen on lateral view) for which clinical correlation is needed as to further evaluate the patient's c lothing and repeat examination, if needed. IMPRESSION: Interval development of multiple 3 and 4 mm nodules anterior to and within the lung parenchyma (best seen on lateral view) for which clinical correlation is needed as to further evaluate the patient's c lothing and repeat examination, if needed. Reviewed, dictated and finalized at location A. OR MEDICAL BILLING SPECIALIST IMPRESSION: Interval development of multiple 3 and 4 mm nodules anterior to and within the lung parenchyma (best seen on lateral view) for which clinical correlation is n eeded as to further evaluate the patient's clothing and repeat examination, if needed.
== END 2024-02-14 14:21 | disposition home or self-care (01) ==
LOC: GOSHIMG 14:21
PROVIDERS: PCP Nurse Practitioner Family; Visit Provider Student in an Organized Health Care Education/Training Program
DX: R91.8 Other nonspecific abnormal finding of lung field (principal)
CPT/HCPCS: 71046

== ENCOUNTER 2024-03-18 08:01 | Outpatient (CLI) | payer MEDICARE, SELFPAY ==
--- NOTE | ~2024-03-18 | XR_ITS ---
Clinical Indication: Abnormal findings on diagnostic imaging PA and lateral views of the chest: Comparison: 02/14/2024 Findings: The lungs are clear, without evidence of focal consolidation or pleural effusion. Cardiome diastinal silhouette is within normal limits. Bones and soft tissues are unremarkable. Impression: Normal chest. Previously noted small nodular opacities are no longer present, presumably they were ar tifactual/external to the patient. Reviewed, dictated and finalized at location M. [facility] Impression: Normal chest. Previously noted small nodular opacities are no longer present, p resumably they were artifactual/external to the patient.
== END 2024-03-18 08:02 | disposition home or self-care (01) ==
PROVIDERS: PCP Student in an Organized Health Care Education/Training Program; Visit Provider Student in an Organized Health Care Education/Training Program
DX: R93.89 Abnormal findings on diagnostic imaging of other specified body structures (principal)
CPT/HCPCS: 71046

== ENCOUNTER 2024-03-18 08:23 | Outpatient (CLI) | payer MEDICARE, SELFPAY ==
--- OUTSIDE RECORDS SUMMARY | 2024-03-18 08:36 | XMS_ITS | Clinical Summary ---
Author Organization [address] lt Address [address] [place] [address] Care Team Providers Care Risk Intern Name Role Phone Kevin Yang MD Primary Care Provider [phone] Allergies Active Allergy Reactions Criticality Noted Date Comments Adhesive Other (See comments) Low 09/29/2021 Reaction: Adhesive Tape-Silicones Unknown 11/06/2018 Blisters Bupropion Bupropion Hcl Hives,Mental status changes,Dizziness Medium 11/06/2018 Medications Singulair 10 mg tablet TAKE 1 TABLET BY MOUTH EVERY EVENING 0 Active azelastine (ASTELIN) 137 mcg (0.1 %) nasal spray Administer 2 sprays into affected nostril(s) 2 (two) times a day Active diclofenac DR (VOLTAREN) 75 mg EC tablet Take 1 tablet (75 mg total) by mouth 2 (two) times a day 0 Active dicyclomine (BENTYL) 20 mg tablet TAKE 1/2 TABLET BY MOUTH 4 TIMES DAILY 9 Active levocetirizine (XYZAL) 5 mg tablet Take 1 tablet (5 mg total) by mouth daily 0 Active metFORMIN XR (GLUCOPHAGE XR) 500 mg 24 hr tablet Take 2 tablets (1,000 mg total) by mouth 2 (two) times a day 0 Active verapamil SR (CALAN SR) 240 mg CR tablet Take 1 tablet (240 mg total) by mouth daily 0 Active glipiZIDE XL (GLUCOTROL XL) 5 mg 24 hr tabletIndicatio ns:type 2 diabetes mellitus Take 1 tablet (5 mg total) by mouth daily Active hydroCHLOROthia zide (HYDRODIURIL) 12.5 mg tablet Take 1 tablet (12.5 mg total) by mouth daily 4 Active sertraline (ZOLOFT) 25 mg tablet Take 1 tablet (25 mg total) by mouth daily 4 Active traZODone (DESYREL) 50 mg tablet PLEASE SEE ATTACHED FOR DETAILED DIRECTIONS 4 Active amoxicillin-cla vulanate (AUGMENTIN) 875-125 mg per tablet Take 1 tablet by mouth every 12 (twelve) hours for 10 days 4 Active predniSONE (DELTASONE) 20 mg tablet TAKE 2 TABLETS ORALLY DAILY FOR 5 DAYS 4 Active Active Problems Problem Noted Date Diagnosed Date Growth of eyelid 02/11/2024 Memory impairment 03/12/2023 Balance disorder 03/12/2023 Assessment & Plan (03/12/2023 11:18 AM HOLE DIGGER TRUCK DRIVER): 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 F/u with NSG, referral sent today, was to f/u every three months, last visit was 09/2020 Update bMRI Anxiety and depression 03/12/2023 Assessment & Plan (03/12/2023 11:17 AM HOLE DIGGER TRUCK DRIVER): Has untreated BPD, depression and anxiety, referred to psychiatry Recommend weaning clonazepam Visual-spatial impairment 03/12/2023 Assessment & Plan (03/12/2023 11:16 AM HOLE DIGGER TRUCK DRIVER): F/u with NSG, not clear if the visuospatial problems are related to the 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 or possibly a dementia Fall 01/17/2021 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 11/05/2018 Right rotator cuff tear arthropathy 11/05/2018 Spondylolisthesis at L3-L4 level 11/05/2018 Synovial cyst of lumbar facet joint 11/05/2018 Seizure 05/12/2010 Resolved Problems Problem Noted Date Diagnosed Date Resolved Date Memory deficit 01/17/2021 02/11/2024 Assessment & Plan (03/12/2023 11:02 AM HOLE DIGGER TRUCK DRIVER): Recommend reducing clonazepam and stopping Parkinsonian features 01/17/20212023 Anxiety state 11/05/2018 03/12/2023 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 03/12/2023 Encounters Date Type Department Care Team Description 02/11/2024 1:45 PM HOLE DIGGER TRUCK DRIVER Office Visit [facility] [address] [place] [address] Jensen, Linda Lainez NP Memory impairment (Primary Dx); Growth of eyelid from Last 3 Months Immunizations Name Administration Dates Next Due Hib (PRP-OMP) 06/12/2016 Influenza, Quadrivalent, Rec ombinant, Egg Free, Preservative Free, Intramuscular 10/15/2018 Influenza, Quadrivalent, Spl it, Preservative Free, Intramuscular 10/22/2017 Influenza, Trivalent, IM (MDV) 11/12/2017,2015 Pneumococcal Polysaccharide PPV23 10/25/2015 ZOSTER LIVE 04/22/2013 ZOSTER Recombinant 01/04/2018,10/24/2017 Surgical History Surgery Date Site/Laterality Comments CHOLECYSTECTOMY TUBAL LIGATION Medical History Medical History Date Comments Headache Diabetes mellitus (HCC) Hypertension Irritable bowel syndrome Family History Medical History Relation Name Comments Dementia Father Diabetes Father Heart disease Father Lung cancer Mother Relation Name Status Comments Father Mother Social History Tobacco Use Types Packs/Day Years Used Date Smoking Tobacco: Never Smokeless Tobacco: Never Tobacco Cessation:Counseling Given: Not Answered Alcohol Use Standard Drinks/Week Comments Not Currently 0 (1 standard drink = 0.6 oz pur e alcohol) Comments No Sex and Gender Information Value Date Recorded Sex Assigned at Not on file Legal Sex Female 2:59 AM HOLE DIGGER TRUCK DRIVER Gender Identity Not on file Sexual Orientation Not on file Obstetrics History Last Filed Vital Signs Vital Sign Reading Time Taken Comments Blood Pressure 155/83 02/11/2024 1:41 PM HOLE DIGGER TRUCK DRIVER Pulse 78 02/11/2024 1:41 PM HOLE DIGGER TRUCK DRIVER Temperature 36.8 ??C (98.3 ??F) 02/11/2024 1:[address] Respiratory Rate 20 02/10/2020 11:39 AM HOLE DIGGER TRUCK DRIVER Oxygen Saturation 98% 02/11/2024 1:41 PM HOLE DIGGER TRUCK DRIVER Inhaled Oxygen Concentration - - Weight 87.5 kg (193 lb) 04/06/2023 8:03 AM HOLE DIGGER TRUCK DRIVER Height 160 cm (5' 3 ) 02/11/2024 1:41 PM HOLE DIGGER TRUCK DRIVER Body Mass Index 34.19 04/06/2023 8:03 AM HOLE DIGGER TRUCK DRIVER Plan of Treatment Health Maintenance Due Date Last Done Comments Breast Cancer Screening-Mammogram 1955 Colon Cancer Screening-Colonoscopy 1955 Depression Screening 1955 Fall Risk Assessment 1955 Hepatitis C Screening 1955 Osteoporosis Screening-Bone Density Scan 1953 DTaP/Tdap/Td Vaccine (1 - Tdap) 1964 Hepatitis B Screening 04/15/1971 Pneumococcal vaccine 65+ (2 of 2 - PCV) 2018 10/25/2015 Well Visit 65+ 2018 Influenza Vaccine (#1) 2023 9, 11/12/2017, 10/22/2017, Additional history exists Zoster Vaccine Completed 01/04/2018, 10/13, 04/22/2013 Insurance COMMERCIAL GENERIC MEDICARE MEDICARE MEDICARE COMMERCIAL GENERIC Care Teams Risk Intern Relationship Specialty Start Date End Date Kevin Yang MD [facility] [place], [place] [id number] PCP - General Family Medicine 12/11/22
--- OUTSIDE RECORDS SUMMARY | 2024-03-18 08:36 | XMS_ITS | Clinical Summary ---
Author Organization [facility] Address [address] [place] [address] Care Team Providers Care Senior Business Development Analyst Name Role Phone Jagdish Palafox MD Primary Care Provider Source Comments [facility],non-owned Affiliates and Associated Physician Practices is amultiple site organization consisting of ambulatory clinics and hospital sitesin [place], [place], [place] and [place]. This disclosure is being madepursuant to the Care Everywhere program and may not contain all information available regarding this patient. Last updated 17.[employer] Social History Tobacco Use Types Packs/Day Years Used Date Smoking Tobacco: Never Assessed Sex and Gender Information Value Date Recorded Sex Assigned at Not on file Gender Identity Not on file Sexual Orientation Not on file Plan of Treatment Health Maintenance Due Date Last Done Comments BONE DENSITY TESTING 1955 COLOGUARD (AGES 45-75) - COL ON CA SCREENING 1953 COLON MONITORING 1953 COLONOSCOPY - COLON CA SCREENING 1953 CT COLONOGRAPHY - COLON CA SCREENING 1953 Colorectal Cancer Screening 1953 FIT - COLON CA SCREENING 1953 FLEX SIG - COLON CA SCREENING 1953 LIPID TESTING 1953 MAMMOGRAM 1953 MEDICARE AWV ? 12 MONTHS 1953 HEPATITIS C SCREENING 04/10/1971 DTAP/TDAP/TD VACCINES (1 - Tdap) 1972 PNEUMOCOCCAL VACCINE 50+ (1 of 1 - PCV) 04/15/2003 ZOSTER VACCINE (1 of 2) 04/15/2003 COVID-19 VACCINE ( - 2023-2 5 season) 2023 INFLUENZA VACCINE (#1) 2023 DEPRESSION SCREENING 02/13/2024 Respiratory Syncytial Virus (RSV) Vaccine Pt: or over 60 yrs (1 - 1-dose 75+ series) 2028 HEPATITIS B VACCINE Aged Out No longe r eligible based on patient's age to complete this topic HIB VACCINE Aged Out No longer eligi ble based on patient's age to complete this topic HPV VACCINE Aged Out No longer eligi ble based on patient's age to complete this topic MENINGOCOCCAL (Group B) VACCINE Aged Out No longer eligible based on patient's age to complete this topic MENINGOCOCCAL VACCINE Aged Out No pee damien eligible based on patient's age to complete this topic Care Teams Senior Business Development Analyst Relationship Specialty Start Date End Date Jagdish Palafox MD [address] [place] [id number] PCP - General 05/10/10
--- OUTSIDE RECORDS SUMMARY | 2024-03-18 08:36 | XMS_ITS | Referral Summary ---
Author Organization [facility] [address] l[address] Address [address] [place] [address] Care Team Providers Care Mixed Animal Veterinarian Name Role Phone Kevin Yang MD Primary Care Provider [phone] Encounters Date Type Department Care Team Description 02/11/2024 1:45 PM PHARMACOGNOSY TEACHER Office Visit [facility] [address] [place] [address] Linda Jensen NP Memory impairment (Primary Dx); Growth of eyelid from Last 3 Months Allergies Active Allergy Reactions Criticality Noted Date [...] 03/12/2023 Assessment & Plan (03/12/2023 11:18 AM PHARMACOGNOSY TEACHER): 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 F/u with NSG, referral sent today, was to f/u every three months, last visit was 09/2020 Update bMRI Anxiety and depression 03/12/2023 Assessment & Plan (03/12/2023 11:17 AM PHARMACOGNOSY TEACHER): Has untreated BPD, depression and anxiety, referred to psychiatry Recommend weaning clonazepam Visual-spatial impairment 03/12/2023 Assessment & Plan (03/12/2023 11:16 AM PHARMACOGNOSY TEACHER): F/u with NSG, not clear if the [...] 02/11/2024 Assessment & Plan (03/12/2023 11:02 AM PHARMACOGNOSY TEACHER): Recommend reducing clonazepam and stopping Parkinsonian features 01/17/20212023 Anxiety state 11/05/2018 03/12/2023 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 03/12/2023 Immunizations Name Administration Dates Next Due Hib (PRP-OMP) 06/12/2016 Influenza, Quadrivalent, Rec ombinant, Egg Free, Preservative Free, Intramuscular 10/15/2018 Influenza, Quadrivalent, Spl it, Preservative Free, Intramuscular 10/22/2017 Influenza, Trivalent, IM (MDV) 11/12/2017,2015 Pneumococcal Polysaccharide PPV23 10/25/2015 ZOSTER LIVE 04/22/2013 ZOSTER Recombinant 01/04/2018,10/24/2017 Social History Tobacco Use Types Packs/Day Years Used Date Smoking Tobacco: Never Smokeless Tobacco: Never Tobacco Cessation:Counseling Given: Not Answered Alcohol Use Standard Drinks/Week Comments Not Currently 0 (1 standard drink = 0.6 oz pur e alcohol) Comments No Sex and Gender Information Value Date Recorded Sex Assigned at Not on file Legal Sex Female 2:59 AM PHARMACOGNOSY TEACHER Gender Identity Not on file Sexual Orientation Not on file Last Filed Vital Signs Vital Sign Reading Time Taken Comments Blood Pressure 155/83 02/11/2024 1:41 PM PHARMACOGNOSY TEACHER Pulse 78 02/11/2024 1:41 PM PHARMACOGNOSY TEACHER Temperature 36.8 ??C (98.3 ??F) 02/11/2024 1:41 PM CS T Respiratory Rate 20 02/10/2020 11:39 AM PHARMACOGNOSY TEACHER Oxygen Saturation 98% 02/11/2024 1:41 PM PHARMACOGNOSY TEACHER Inhaled Oxygen Concentration - - Weight 87.5 kg (193 lb) 04/06/2023 8:03 AM PHARMACOGNOSY TEACHER Height 160 cm (5' 3 ) 02/11/2024 1:41 PM PHARMACOGNOSY TEACHER Body Mass Index 34.19 04/06/2023 8:03 AM PHARMACOGNOSY TEACHER Plan of Treatment Not on file Insurance COMMERCIAL GENERIC MEDICARE MEDICARE MEDICARE COMMERCIAL GENERIC Care Teams Mixed Animal Veterinarian Relationship Specialty Start Date End Date Kevin Yang MD [address] [facility] [facility] [facility] [place] [address] PCP - General Family Medicine 12/11/22
--- OUTSIDE RECORDS SUMMARY | 2024-03-18 08:36 | XMS_ITS | Patient Health Summary ---
Author Organization [facility] Address [address] [place] [address] Care Team Providers Care Cnc Technician Name Role Phone Jagdish Palafox MD Primary Care Provider [phone] Note from [facility],non-owned Affiliates and Associated Physician Practices is amultiple site organization consisting of ambulatory clinics and hospital sitesin [place], [place], [place] and [place]. This disclosure is being madepursuant to the Care Everywhere program and may not contain all information available regarding this patient. Last updated 17.[facility] Social History Tobacco Use Types Packs/Day Years Used Date Smoking Tobacco: Never Assessed Sex and Gender Information Value Date Recorded Sex Assigned at Not on file Gender Identity Not on file Sexual Orientation Not on file Procedures * DERMATOPATHOLOGY(Performed 08/15/2023) * DERMATOPATHOLOGY(Performed 05/10/2015) * DERMATOPATHOLOGY(Performed 04/11/2012) * DERMATOPATHOLOGY(Performed 01/12/2012) * DERMATOPATHOLOGY(Performed 06/07/2010) Results * DERMATOPATHOLOGY (08/15/2023 2:22 PM CDT) Only the most recent of5 resultswithin the time period is included. Case Report Dermatopathology Report ? Case: [id number] ? Authorizing Provider: ??Tiffanie Gale MD ? Collected: ? 08/15/2023 02:22 PM ? Ordering Location: ? [facility] - ??Received: ?08/17/2023 08:35 AM ? DermPath Lab ? Pathologist: ? Fatou Caldera MD ? Specimens: ?? A) - Skin, left thigh ? B) - Skin, left post neck ? C) - Skin, right lateral forehead ? D) - Skin, left upper chest ? 4 3:32 PM CDT DERMATOPATHOLOGY LABORATORY Final Diagnosis Specimen A. SKIN, left thigh: BENIGN VERRUCOUS KERATOSIS, INFLAMED (L82.1) Specimen B. SKIN, left post neck: MILIUM (L72.8) EPIDERMAL NECROSIS SUGGESTIVE OF EXCORIATION (L98.499) Specimen C. 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 SKIN, left upper chest: ACTINIC KERATOSIS, PIGMENTED (L57.0) (see microscopic description and comment) 3:32 PM [facility] DERMATOPATHOLOGY LABORATORY Clinical History A: SCC vs ISK vs Other B: AK vs SCC vs other C: Cyst vs [place] D: [place] R/O LM 4 3:32 PM [facility] DERMATOPATHOLOGY LABORATORY Gross Description Specimen A: Received is one formalin filled container labeled with the patient's name and designated left thigh. The specimen consists of a shave biopsy measuring 10x9x6 mm. Jar 0. Specimen B: Received is one formalin filled container labeled with the patient's name and designated left post neck. The specimen consists of a shave biopsy measuring 8x7x1 mm. Jar 0. Specimen C: Received is one formalin filled container labeled with the patient's name and designated right lateral forehead. The specimen consists of a punch biopsy measuring 3x3x7 mm. Jar 0. Specimen D: Received is one formalin filled container labeled with the patient's name and designated left upper chest. The specimen consists of a shave biopsy measuring 9x6x1 mm. Jar 0. 4 3:32 PM [facility] DERMATOPATHOLOGY LABORATORY Microscopic Description Specimen A. SKIN, left thigh: Sections show hyperkeratosis, papillomatosis, hypergranulosis, and acanthosis. Inflammatory cells are present within the dermis. These histological findings can be seen in a verruca vulgaris or a seborrheic keratosis. Specimen B. SKIN, left post neck: There is a space that contains loosely aggregated cornified cells surrounded by epithelium that resembles normal epidermis. The epidermis is focally necrotic and covered with a scale-crust. There is fibrin at the base. Specimen C. SKIN, right lateral forehead: Sections show a proliferation of spindled and S-shaped cells within the dermis. The stromal collagen is delicate and pale. Additional deeper sections were obtained and reviewed. Specimen D. SKIN, left upper chest: There is alternating orthokeratosis and parakeratosis. Along the undersurface of the epidermis, there are buds of atypical keratinocytes in a disorderly arrangement. There is prominent pigmentation in some of the keratinocytes. The number of melanocytes, highlighted by MART-1/Melan-A and SOX-10 immunohistochemical staining, is only mildly increased. Ki67 reveals an increased proliferation index in keratinocytes within lower-levels of the epidermis. This lesion is present at the margin of the specimen. COMMENT: If this specimen is sampled from a larger lesion, these findings may not be sales representative womens health of the entire lesion. Clinicopathologic correlation is recommended. 4 3:32 PM CDT DERMATOPATHOLOGY LABORATORY Disclaimer An external and internal positive and negative controls are appropriate for the histochemical, immunohistochemical and immunofluorescence stain(s) in this case (if any), except where stated explicitly. The performance characteristics of the stain(s) cited in this report were developed and its performance characteristic determined by the Dermatopathology Laboratory at [facility], directed by Dr. Rena Aguirre. These tests need not be, and therefore are not, approved by the [place] Food and Drug Administration. The tests are used for clinical purposes. Billing Codes Specimen Charges Stain Charges 33932 52788 06856 99008 1 1 1 1 36734 79221 55783 1 1 1 4 3:32 PM CDT DERMATOPATHOLOGY LABORATORY Embedded Images 4 3:32 PM CDT DERMATOPATHOLOGY LABORATORY Pathology/Cytology TISSUE SPECIMEN FROM SKIN / Unknown 08/15/2023 2:22 PM CDT 08/17/2023 8:35 AM CDT Miscellaneous samples (specimen) TISSUE SPECIMEN FROM SKIN / Unknown 08/15/2023 2:22 PM CDT 08/17/2023 8:35 AM CDT Miscellaneous samples (specimen) TISSUE SPECIMEN FROM SKIN / Unknown 08/15/2023 2:22 PM CDT 08/17/2023 8:35 AM CDT Miscellaneous samples (specimen) TISSUE SPECIMEN FROM SKIN / Unknown 08/15/2023 2:22 PM CDT 08/17/2023 8:35 AM CDT Tiffanie Gale MD LAB - PATHOLOGY/CYT OLOGY ORDERABLES DERMATOPATHOLOGY LABORATORY [facility] - Department of Dermatology [facility] Specialized Medicine [address] [place] [address], [address] [phone] Care Teams Cnc Technician Relationship Specialty Start Date End Date Jagdish Palafox MD [address] [place] [address] PCP - General 05/10/10
--- OUTSIDE RECORDS SUMMARY | 2024-03-18 08:36 | XMS_ITS | Continuity of Care Document ---
Author Organization [facility] Address [address] [place] [address] Phone Care Team Providers Care Basin Tender Name Role Phone Melia DECKER, Federico Unavailable [...] Providers Copied on Encounter OFFICE/OUTPA TIENT VISIT, [facility], [address], [place], [place], [id number], [place] tel:[phone] Oph Consult [facility] Office abrasion with RCE (chief complaint) Diabetes Mellitus Type 2, UncomplicatedS uperficial injury of cornea 2 Melia Caballero. [address], [address], [place], [place], [address], . tel:[phone] Referring Provider: Federico remy, [address], [place], [place], [address]. tel:[phone] Family History Family Member Type Diagnosis Age At Onset No Information Payers Payer name Insurance type Covered alliance party ID Authoriza tion(s) [facility] [id number] Social History Type Description Quantity Date Captured Comments Alcohol Use Details Unknown Caffeine Use Details Unknown Tobacco Use Status No Information Smoking Status No Information Sex Female Chief Complaint And Reason For Visit From encounter dated '08/11/2011 13:30'. abrasion with RCE (chief complaint) Plan Of Treatment Date Type Action Status No Information History Of Present Illness Encounter Date Complaint History Of Prese nt Illness No Information Instructions Date Instruction Additional Infor ana - Return in PRN Related to Corne al Abrasion Diabetes Type II, - Diabetes type II: no background diabetic retinopathy, no signs of neovascularization noted. Discussed ocular and systemic benefits of blood sugar control. Related to Diabetes Type II Corneal Abrasion, OD - resolved Related to Corneal Abrasion Assessments Type Assessment Date No Information
--- OUTSIDE RECORDS SUMMARY | 2024-03-18 08:36 | XMS_ITS | Encounter Summary ---
Author Organization [facility] Address [address] [place] [address] Care Team Providers Care Escrow Processor Name Role Phone Jagdish Palafox MD Primary Care Provider [phone] Encounter Details Date Type Department Care Team (Late st Contact Info) Description 08/15/2023 Lab Requisition [facility] - DermPath Lab [address] [place] [address] Tiffanie Gale MD [address] [facility] [address] [place] [address] Social History Tobacco Use Types Packs/Day Years Used Date Smoking Tobacco: Never Assessed Sex and Gender Information Value Date Recorded Sex Assigned at Not on file Gender Identity Not on file Sexual Orientation Not on file documented as of this encounter Plan of Treatment Not on file documented as of this encounter Procedures Procedure Name Priority Date/Time Associated Diagnosis Comments DERMATOPATHOLOGY Routine 08/15/2023 2:22 PM CDT documented in this encounter Results * DERMATOPATHOLOGY (08/15/2023 2:22 PM CDT) Case Report Dermatopathology Report ? Case: [id number] ? Authorizing Provider: ??Tiffanie Gale MD ? Collected: ? 08/15/2023 02:22 PM ? Ordering Location: ? [facility] - ??Received: ?08/17/2023 08:35 AM [...] (see microscopic description and comment) 3:32 PM [facility] DERMATOPATHOLOGY LABORATORY Clinical History A: SCC vs ISK vs Other B: AK vs SCC vs other C: Cyst vs [place] D: Lentigo R/O LM 4 3:32 PM T DERMATOPATHOLOGY LABORATORY Gross Description Specimen A: Received [...] shave biopsy measuring 9x6x1 mm. Jar 0. 3:32 PM [facility] DERMATOPATHOLOGY LABORATORY Microscopic Description Specimen A. SKIN, [...] these findings may not be sales representative business courses of the entire lesion. Clinicopathologic correlation is [...] determined by the Dermatopathology Laboratory at [facility], directed by Dr. Rena Aguirre. These tests need not be, and therefore are not, approved by the [place] Food and Drug Administration. The tests are used for clinical purposes. Billing Codes Specimen Charges Stain Charges 39939 87559 18483 54373 1 1 1 1 59956 54519 75115 1 1 1 4 3:32 PM CDT [...] [facility] Specialized Medicine [address] [place] [address], [address] [phone] documented in this encounter Visit Diagnoses Not on filedocumented in this encounter Care Teams Escrow Processor Relationship Specialty Start Date End Date Jagdish Palafox MD [address] [place] [address] PCP - General 05/10/10 documented as of this encounter
--- OUTSIDE RECORDS SUMMARY | 2024-03-18 08:36 | XMS_ITS | Referral Summary ---
Author Organization [facility] Address [address] [place] [address] Care Team Providers Care Destination Specialist Name Role Phone Jagdish Palafox MD Primary Care Provider [phone] Source Comments [facility],non-owned Affiliates and Associated Physician Practices is amultiple site organization consisting of ambulatory clinics and hospital sitesin [place], [place], [place] and [place]. This disclosure is being madepursuant to the Care Everywhere program and may not contain all information available regarding this patient. Last updated 17.[facility] [employer] Social History Tobacco Use Types Packs/Day Years Used Date Smoking Tobacco: Never Assessed Sex and Gender Information Value Date Recorded Sex Assigned at Not on file Gender Identity Not on file Sexual Orientation Not on file Plan of Treatment Not on file Care Teams Destination Specialist Relationship Specialty Start Date End Date Jagdish Palafox MD [address] [place] [address] PCP - General 05/10/10
--- OUTSIDE RECORDS SUMMARY | 2024-03-18 08:36 | XMS_ITS | Clinical Summary ---
Author Organization [facility] [id number] [facility] Address [address] [place] [address] Care Team Providers Care Photographers' Model Name Role Phone Jagdish Tubbs MD Primary Care Provider [phone] Allergies Active Allergy Reactions Criticality Noted Date Comments Adhesive Tape-Silicones Other (See Comments) Blisters Bupropion Hcl Confusion,Dizziness Low 11/06/2018 Medications metFORMIN (GLUCOPHAGE XR) 500 mg Extended Release 24 hour tablet TAKE 2 TABLET BY MOUTH TWICE DAILY 3 9 Active verapamil (CALAN SR) 240 mg Sustained Release tablet TAKE 1 TABLET BY MOUTH EVERY DAY WITH FOOD 1 9 Active lisinopril-hydr oCHLOROthiazide (ZESTORETIC) 10-12.5 mg tablet TAKE 1/2 TABLET BY MOUTH EVERY DAY 11 9 Active montelukast (SINGULAIR) 10 mg tablet TAKE 1 TABLET BY MOUTH EVERY DAY 1 9 Active pioglitazone (ACTOS) 30 mg tablet TAKE 1 TABLET BY MOUTH EVERY DAY 3 9 Active QUEtiapine (SEROquel) 100 mg tablet TAKE 1 TABLET BY MOUTH EVERY DAY 5 9 Active clonazePAM (KlonoPIN) 1 mg tablet TAKE 1 TABLET BY MOUTH THREE TIMES A DAY 3 9 Active cyclobenzaprine (FLEXERIL) 10 mg tablet TAKE 1 TABLET BY ORAL ROUTE 3 TIMES EVERY DAY CAUTION DROWSINESS 2 9 Active diclofenac sodium (VOLTAREN) 75 mg Tablet, Delayed Release (E.C.) TAKE 1 TABLET BY MOUTH TWICE A DAY 3 9 Active traMADol (ULTRAM) 50 mg tablet 9 Active dicyclomine (BENTYL) 20 mg tablet TAKE 1/2 TABLET BY MOUTH 4 TIMES DAILY 1 9 Active levocetirizine (XYZAL) 5 mg tablet Take 5 mg by mouth late in the day. Active azelastine (ASTELIN) 137 mcg/actuation nasal spray Administer 2 Sprays in each nostril 2 times daily. Active acetaminophen (TYLENOL ORAL)Indication s:takes 2 tablets as needed Take 500 mg by mouth 1 time daily as needed. 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 11/05/2018 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 Right rotator cuff tear arthropathy 11/05/2018 Anxiety state 11/05/2018 Family History Medical History Relation Name Comments Unknown Brother Diabetes Father Cancer Mother kidney Lung Cancer Mother Unknown Sister Relation Name Status Comments Brother Father Mother Sister Alive Social History Tobacco Use Types Packs/Day Years Used Date Smoking Tobacco: Never Alcohol Use Standard Drinks/Week Comments Yes 0 (1 standard drink = 0.6 oz pur e alcohol) rarely Comments Unknown Sex and Gender Information Value Date Recorded Sex Assigned at Not on file Legal Sex Female 3:22 PM CDT Gender Identity Not on file Sexual Orientation Not on file 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 on file Not on file Not on file Not on file Not on file Not on file Not on file Last Filed Vital Signs Vital Sign Reading Time Taken Comments Blood Pressure 156/83 11/06/2018 12:42 PM CDT Pulse - - Temperature - - Respiratory Rate - - Oxygen Saturation - - Inhaled Oxygen Concentration - - Weight 88.5 kg (195 lb) 01/08/2019 5:21 PM REGISTERED VASCULAR TECHNOLOGIST (RVT) Height 160 cm (5' 3 ) 01/08/2019 5:21 PM REGISTERED VASCULAR TECHNOLOGIST (RVT) Body Mass Index 34.54 01/08/2019 5:21 PM REGISTERED VASCULAR TECHNOLOGIST (RVT) Plan of Treatment Health Maintenance Due Date Last Done Comments DTAP/TDAP/TD VACCINES (1 - Tdap) 1972 BREAST CANCER SCREENING 1993 COLORECTAL SCREENING 1998 Colorectal Cancer Screening 1998 FIT-DNA Q 3 years 1998 FIT/FOBT Q 1 year 1998 Flex Sig/CT Colonography Q 5 years 1998 PNEUMOCOCCAL VACCINE 65+ YEARS (1 of 1 - PCV) 04/15/19 04 ZOSTER VACCINE (1 of 2) 04/15/2003 OSTEOPOROSIS SCREENING 2018 INFLUENZA VACCINE (#1) 2023 RSV VACCINE (60+ or ) (1 - 1-dose 75+ series) 2028 Insurance [facility] Care Teams Photographers' Model Relationship Specialty Start Date End Date Jagdish Tubbs MD [address] [place] [address] PCP - General Family Practice 11/04/18
[2024-03-18 12:27] LABS: Basophils Absolute Auto 0.1 K/mm3 (0.0-0.1); Eosinophils Absolute Auto 0.2 K/mm3 (0-0.3); Eosinophils Percent Auto 3.5 % (0-4.4); Hematocrit 38.9 % (37.0-47.0); Hemoglobin 12.3 g/dL (12.0-15.0); Immature Granulocyte Absolute 0.02 K/mm3 (0.00-0.031); Immature Granulocyte Percent A 0.3 % (0-0.5); Lymphocytes Absolute Auto 1.65 K/mm3 (0.9-3.2); Lymphocytes Percent Auto 23.7 % (18.3-44.2); Mean Corpuscular HGB Conc 31.6 g/dl (32-36); Mean Corpuscular Hemoglobin 26.3 pg (26-34); Mean Corpuscular Volume 83.3 fl (80-100); Mean Platelet Volume 9.4 fl (7.4-10.4); Monocytes Absolute Auto 0.6 K/mm3 (0.1-0.6); Monocytes Percent Auto 8.1 % (2.6-8.5); Neutrophils Absolute Auto 4.4 K/mm3 (1.3-6.7); Neutrophils Percent Auto 63.4 % (45.5-73.1); Platelet Count Result 281 k/mm3 (150-375); Red Blood Count 4.67 M/mm3 (4.2-5.4); Red Cell Distribution Width 13.7 % (11.5-14.5)
[2024-03-18 13:40] LABS: Hemoglobin A1C 7.6 % (<5.7)
[2024-03-18 15:32] LABS: Alanine Aminotransferase 22 U/L (6-35); Albumin Level 4.3 g/dL (3.5-5.1); Alkaline Phosphatase 114 U/L (38-126); Anion Gap 12 mmol/L (4-12); Aspartate Amino Transferase 34 U/L (14-36); Bilirubin,Total 0.6 mg/dL (0.2-1.3); Blood Urea Nitrogen 19 mg/dL (7-17); Calcium 9.4 mg/dL (8.4-10.2); Carbon Dioxide 30 mmol/L (22-30); Chloride 97 mmol/L (98-107); Cholesterol 254 mg/dL (0-200); Estimated Glomerular Filt Rate > 60; Glucose 145 mg/dL (65-110); HDL Direct 60 mg/dL; Sodium 139 mmol/L (137-145); Triglycerides 232 mg/dL (<150)
[2024-03-18 15:44] LABS: LDL Cholesterol Direct 128 mg/dL
== END 2024-03-18 08:24 | disposition home or self-care (01) ==
LOC: ANHGOSHLAB 08:25
PROVIDERS: PCP Student in an Organized Health Care Education/Training Program; Visit Provider Nurse Practitioner Family
DX: E11.40 Type 2 diabetes mellitus with diabetic neuropathy, unspecified (principal); E78.5 Hyperlipidemia, unspecified; I10 Essential (primary) hypertension; D50.9 Iron deficiency anemia, unspecified; E53.8 Deficiency of other specified B group vitamins
CPT/HCPCS: 36415; 80053; 80061; 83036; 84443; 85025

== ENCOUNTER 2024-08-25 14:51 | Outpatient (CLI) | payer MEDICARE, SELFPAY ==
--- NOTE | ~2024-08-25 | XR_ITS ---
Lumbosacral Spine: AP and lateral views Clinical History: Pain Findings: The normal lordotic curve is maintained. There is 8mm anterolisthesis of L4 over L5. There is advanced degenerative disc narrowing L5-S1. There is residual S1 vertebral body. There is diffuse, severe facet arthropathy and lumbar spine. The sacroiliac joints are normally outlined. Impression: Extensive severe facet arthropathy in the lumbar spine. 8mm anterolisthesis of L4 over L5. Reviewed, dictated and finalized at location M. Impression: Extensive severe facet arthropathy in the lumbar spine. 8mm anterolisthesis of L4 over L5.
--- NOTE | ~2024-08-25 | XR_ITS ---
XR sacrum coccyx min 2V Ordering provider: PARMJIT Malhotra History: . W18.30XA - Fall on same level, unspecified, initial encou... . Comparison: None. FINDINGS: BONES: No acute fracture or dislocation. Degenerative changes of the spine. JOINTS: Right sacroiliitis. Bilateral moderate hip osteoarthritic changes. Pubic symphysitis. SOFT TISSUES: Soft tissues are normal. IMPRESSION: No definite acute osseous abnormality sacrum and coccyx. If still clinically suspicious CT is advised. Reviewed, dictated and finalized at location A.
== END 2024-08-25 14:52 | disposition home or self-care (01) ==
LOC: GOSHIMG 14:51
PROVIDERS: Visit Provider Nurse Practitioner Family
DX: M53.3 Sacrococcygeal disorders, not elsewhere classified (principal); M47.896 Other spondylosis, lumbar region; M43.16 Spondylolisthesis, lumbar region; W18.30XA Fall on same level, unspecified, initial encounter
CPT/HCPCS: 72100; 72220

== ENCOUNTER 2024-10-16 14:13 | Outpatient (CLI) | payer MEDICARE, SELFPAY ==
--- NOTE | ~2024-10-16 | MR_ITS ---
EXAMINATION: MR lumbar spine wo con DATE: 10/16/2024 15:03 INDICATION: Radiculopathy, lumbar region. TECHNIQUE: Magnetic resonance imaging (MRI) of the lumbar spine was performed without intravenous contrast. COMPARISON: Lumbar spine MRI 10/21/2018 FINDINGS: There is 5 degrees levocurvature of lumbar spine. S1 is a transitional segment. Vertebral body heights are normal. There is mildly decreased disc height at L4-L5 and severely decreased disc height at L5-S1. The distal spinal cord signal intensity is normal. The conus medullaris is at L1. The following disc levels are specifically discussed: L1-L2: The disc does not extend beyond the endplate margin. There is severe right and mild left facet joint osteoarthritis. There is mild right neural foraminal stenosis. There is no central canal stenosis. L2-L3: The disc is bulging. There is severe bilateral facet joint osteoarthritis. There is mild bilateral neural foraminal stenosis. There is mild central canal stenosis. L3-L4: The disc is bulging. There is severe bilateral facet joint osteoarthritis. There is an 8 mm synovial cyst of right facet joint in the epidural space. There is mild bilateral neural foraminal stenosis. There is mild central canal stenosis. L4-L5: The disc is bulging and has an annular fissure. There is severe bilateral facet joint osteoarthritis. There is mild bilateral neural foraminal stenosis. There is mild central canal stenosis. L5-S1: The disc is bulging with superimposed right central extrusion. There is moderate bilateral facet joint osteoarthritis. There is moderate right and mild left neural foraminal stenosis. There is mild central canal stenosis at the midline. There is moderate stenosis of right lateral recess. IMPRESSION: 1. Severe lower lumbar spondylosis, worsened at L5-S1 from 10/21/2018. Reviewed, dictated and finalized at location K.
== END 2024-10-16 14:14 | disposition home or self-care (01) ==
LOC: GOSHIMG 14:15
PROVIDERS: PCP Nurse Practitioner Family; Visit Provider Nurse Practitioner Family
DX: M47.26 Other spondylosis with radiculopathy, lumbar region (principal); M47.27 Other spondylosis with radiculopathy, lumbosacral region
CPT/HCPCS: 72148

== ENCOUNTER 2024-11-11 09:51 | Day surgery (SDC) | payer MEDICARE, SELFPAY ==
[2024-11-10 10:01] VITALS: BMI 35.9
--- NOTE | ~2024-11-11 | XR_ITS ---
EXAMINATION: XR fluoroscopy no charge DATE: 11/11/2024 10:43 INDICATION: Bilateral sacroiliac joint steroid injections. TECHNIQUE: 9 fluoroscopic images of the bilateral sacroiliac joints were obtained during procedure performed by Dr. Santoro. Radiologist was not present for the imaging or procedure. The amount of fluoroscopy time used during this procedure was 0.6 minutes. COMPARISON: 08/25/2024 FINDINGS: Images demonstrate spinal needles advanced into the caudal aspect of the left and right sacroiliac joints. Small amount injected contrast seen opacifying portions of the bilateral sacroiliac joint spaces. Transitional S1 segment and sacralized on the right with some extension of contrast extending from the sacroiliac joint along the contiguous articulation between the sacralized right S1 transverse process and the more caudal right sacral ala. IMPRESSION: 1. Fluoroscopy utilized during bilateral sacroiliac joint pain management procedure. See procedure note for further detail. Reviewed, dictated and finalized at location A. IMPRESSION: 1. Fluoroscopy utilized during bilateral sacroiliac joint pain management proce thiago. See procedure note for further detail.
[2024-11-11 10:20] VITALS: BP 149/77; PULSE 70; RESP 18; TEMP 37.1; O2SAT 99
--- NOTE | 2024-11-11 10:22 | WPDHPUPDATE1 ---
History and Physical Update Update Date/Time: 11/11/24 10:22 History and Physical has been reviewed, including an updated exam of the patient. There are NO changes in the patient's condition. Risks, benefits, and alternatives have been discussed and questions answered. Patient agrees to proceed with procedure.
--- NOTE | 2024-11-11 10:23 | P.OP_ITS ---
Procedure Note - Detailed Date of Procedure 11/11/24 Pre-op Diagnosis Sacroiliitis Post-op Diagnosis Same Procedure Performed Bilateral Sacroiliac Joint Steroid Injection under Fluoroscopic Guidance and with Contrast Control. Surgeon Dane Santoro MD Switchboard Installer None Anesthesia Local Description of Procedure INFORMED CONSENT: Risks, benefits and alternatives to the procedure were discussed in detail with the patient who expressed explicit understanding and consent to proceed. Patient was informed verbally and in written form regarding the risks associated with the procedure including the low risk of serious infection, bleeding/bruising, allergic reaction, nerve or organ injury, paralysis, procedural site pain or discomfort, worsening pain and/or mobility, failure to treat and/or disfigurement. The patient expressed explicit understanding and consent to proceed. All materials required for the procedure were available prior to procedure start. Site and side were marked prior to procedure and confirmed in the presence of the patient. PROCEDURE IN DETAIL: The patient was brought to the procedural suite and placed in the prone position. Patient was made comfortable with use of pillows under the head/chest, hips and ankles. Skin overlying the injection site on the affected side(s) was prepared broadly with ChloraPrep applicator and draped in a sterile manner. Aseptic technique was used throughout. The right SI joint was identified in the AP view and contralateral oblique angulation with caudal tilt was utilized to optimize visualization of the inferior and medial joint line representing the posterior portion of the joint. Local anesthesia was established by infiltration with approximately 5 mL of 2% lidocaine via a 1-1/2 inch 27-gauge needle. A 22-gauge 3.5 inch Quincke spinal needle was advanced until the needle entered the inferior third of the joint space approximately 1cm cephalad from its most inferior point. In the AP view, 0.5 mL of Omnipaque 300 contrast medium was injected after negative aspiration for CSF, blood or other bodily fluid, showing appropriate intra-articular spread of contrast without evidence of intravascular, perineural or intrathecal placement. A 1.5 mL solution containing 5 mg of dexamethasone in 0.5% PF bupivacaine was injected after repeat negative aspiration. Appropriate spread of the injectate was confirmed with washout of previous injected contrast. No parasthesias were elicited. Needle was removed completely intact without difficulty. The same exact procedure was repeated for all remaining levels on the contralateral side, left SI joint, modified as necessary to accommodate for the new target location with identical findings/results and no evidence of complication. Images were saved and documented in the patient chart. Patient's skin was cleansed and sterile bandage applied. The patient tolerated the procedure well. The patient was transported to the recovery area in stable condition where they were observed for an appropriate amount of time prior to discharge, without evidence of complication. The patient was instructed to avoid excessive activity for the next 48 hours, including climbing and frequent use of stairs. Showers only for 48 hours. They were instructed not to drive or operate heavy machinery for 24 hours. They are to monitor for severe headaches, fevers, chills, night sweats, erythema/swelling at the site or any other signs of infection, bleeding/bruising, bowel or bladder changes as well as new pain, weakness or numbness in the upper or lower extremity. Should they notice these changes, they are instructed to call our office immediately or report directly to the nearest Emergency Department if no answer or if after posted office hours. COMPLICATIONS: None COMMENTS: None CONTRAST WASTED: 29mL Omnipaque 300. Complications No immediate complications Condition Stable Disposition Same day [facility] Billing Surgery - Charge Forward: Surgery Billing
[2024-11-11 10:36] VITALS: BP 179/86; PULSE 72; RESP 16; O2SAT 94
[2024-11-11] MEDS: BUPivacaine HCL 0.5% 10 ML AMP INFILTRATE (10:38)
[2024-11-11] MEDS: dexAMETHasone SOD PHOS INJ 10 MG/ML 1 ML VIAL IM (10:39)
[2024-11-11 10:40] VITALS: BP 164/78; PULSE 69; RESP 17; O2SAT 97
--- OUTSIDE RECORDS SUMMARY | 2024-11-11 10:43 | XMS_ITS | Encounter Summary ---
Author Organization [facility] Address [address] [place] [address] Care Team Providers Care Art Psychotherapist Name Role Phone Jagdish Palafox MD Primary Care Provider [phone] Encounter Details Date Type Department Care Team (Late st Contact Info) Description 08/15/2023 Lab Requisition [facility] - DermPath Lab [address] [facility] [place] [address] Tiffanie Gale MD [address] 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 Gender Identity Not on file Sexual Orientation Not on file documented as of this encounter Plan of Treatment Not on file documented as of this encounter Procedures Procedure Name Priority Date/Time Associated Diagnosis Comments DERMATOPATHOLOGY Routine 08/15/2023 2:22 PM CDT documented in this encounter Results * DERMATOPATHOLOGY (08/15/2023 2:22 PM CDT) Case Report Dermatopathology Report Case: [id number] Authorizing Provider: Tiffanie Gale MD Collected: 08/15/2023 02:22 PM Ordering Location: [facility] - Received: 08/17/2023 08:35 AM DermPath Lab Pathologist: Fatou Caldera MD Specimens: A) - Skin, left thigh B) - Skin, left post neck C) - Skin, right lateral forehead D) - Skin, left upper chest 3:32 PM CDT DERMATOPATHOLOGY LABORATORY Final Diagnosis Specimen A. SKIN, left thigh: BENIGN VERRUCOUS KERATOSIS, INFLAMED (L82.1) Specimen B. SKIN, left post neck: MILIUM (L72.8) EPIDERMAL NECROSIS SUGGESTIVE OF EXCORIATION (L98.499) Specimen C. 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 SKIN, left upper chest: ACTINIC KERATOSIS, PIGMENTED (L57.0) (see microscopic description and comment) 4 3:32 PM CDT DERMATOPATHOLOGY LABORATORY at 1532 CDT Clinical History A: SCC vs ISK vs Other B: AK vs SCC vs other C: Cyst vs [place] D: [place] R/O LM 4 3:32 PM CDT DERMATOPATHOLOGY LABORATORY Gross Description Specimen A: Received [...] 9x6x1 mm. Jar 0. 4 3:32 PM CDT DERMATOPATHOLOGY LABORATORY Microscopic Description Specimen A. SKIN, [...] larger lesion, these findings may not be provider relations representative of the entire lesion. Clinicopathologic correlation is recommended. 4 3:32 PM CDT DERMATOPATHOLOGY LABORATORY Disclaimer An external and internal positive and negative controls are appropriate for the histochemical, immunohistochemical and immunofluorescence stain(s) in this case (if any), except where stated explicitly. The performance characteristics of the stain(s) cited in this report were developed and its performance characteristic determined by the Dermatopathology Laboratory at [facility], directed by Dr. Rena Aguirre. These tests need not be, and therefore are not, approved by the [place] Food and Drug Administration. The tests are used for clinical purposes. Billing Codes Specimen Charges Stain Charges 92909 52498 88214 90347 1 1 1 1 04115 [id number] 82694 1 1 1 4 3:32 PM CDT [...] 2:22 PM CDT 08/17/2023 8:35 AM CDT us Tiffanie Gale MD LAB - PATHOLOGY/CYTOLOGY OR DERABLES Final Result DERMATOPATHOLOGY LABORATORY [facility] - Department of Dermatology [facility] Specialized Medicine [address] [place] [address], [address] [phone] documented in this encounter Visit Diagnoses Not on filedocumented in this encounter Care Teams Art Psychotherapist Relationship Specialty Start Date End Date Jagdish Palafox MD [address] [place] [address] PCP - General 05/10/10 documented as of this encounter
--- OUTSIDE RECORDS SUMMARY | 2024-11-11 10:43 | XMS_ITS | Clinical Summary ---
Author Organization [address] Address [address] [place] [address] Care Team Providers Care Rock Climbing Instructor Name Role Phone Shantal Vega NP Primary Care Provider [phone] Allergies Active Allergy Reactions Criticality Noted Date [...] ORALLY DAILY FOR 5 DAYS 4 Active acyclovir (ZOVIRAX) 400 mg tablet TAKE 1 TABLET BY MOUTH EVERY DAY NEEDED FOR COLD SORES 5 Active Ventolin HFA 90 mcg/actuation inhaler USE 1 INHALATION EVERY 4 HOURS NEEDED FOR SHORTNESS OF BREATH OR WHEEZING 5 Active benzonatate (TESSALON) 200 mg capsule Take 1 capsule (200 mg total) by mouth 3 (three) times a day 5 Active fluconazole (DIFLUCAN) 200 mg tablet TAKE 1 TABLET MAY REPEAT IN 3 DAYS IF IT IS NOT BETTER 5 Active Active Problems Problem Noted Date Diagnosed Date Growth of eyelid 02/11/2024 Memory impairment 03/12/2023 Balance disorder 03/12/2023 Assessment & Plan (03/12/2023 11:18 AM LOADING UNIT OPERATOR): 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 F/u with NSG, referral sent today, was to f/u every three months, last visit was 09/2020 Update bMRI Anxiety and depression 03/12/2023 Assessment & Plan (03/12/2023 11:17 AM LOADING UNIT OPERATOR): Has untreated BPD, depression and anxiety, referred to psychiatry Recommend weaning clonazepam Visual-spatial impairment 03/12/2023 Assessment & Plan (03/12/2023 11:16 AM LOADING UNIT OPERATOR): F/u with NSG, not clear if the [...] 02/11/2024 Assessment & Plan (03/12/2023 11:02 AM LOADING UNIT OPERATOR): Recommend reducing clonazepam and stopping Parkinsonian features 01/17/20212023 Anxiety state 11/05/2018 03/12/2023 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 03/12/2023 Encounters Date Type Department Care Team Description 08/27/2024 Orders Only [facility] Scanning, Provider from Last 3 Months Immunizations Immunization Administration Dates Next Due Hib (PRP-OMP) 06/12/2016 Influenza, Quadrivalent, Rec ombinant, Egg Free, Preservative Free, Intramuscular 10/15/2018 Influenza, Quadrivalent, Spl it, Preservative Free, Intramuscular 10/22/2017 Influenza, Trivalent, IM (MDV) 11/12/2017,2015 Pneumococcal Polysaccharide PPV23 10/25/2015 ZOSTER LIVE 04/22/2013 ZOSTER Recombinant 01/04/2018,10/24/2017 Surgical History Surgery Date Site/Laterality Comments CHOLECYSTECTOMY TUBAL LIGATION Medical History Medical History Date Comments Headache Diabetes mellitus Hypertension Irritable bowel syndrome Family History Medical [...] on file Legal Sex Female 2:59 AM LOADING UNIT OPERATOR Gender Identity Not on file Sexual Orientation Not on file Obstetrics History Last Filed Vital Signs Vital Sign Reading Time Taken Comments Blood Pressure 155/83 02/11/2024 1:41 PM LOADING UNIT OPERATOR Pulse 78 02/11/2024 1:41 PM LOADING UNIT OPERATOR Temperature 36.8 C (98.3 F) 02/11/2024 1:41 PM LOADING UNIT OPERATOR Respiratory Rate 20 02/10/2020 11:39 AM LOADING UNIT OPERATOR Oxygen Saturation 98% 02/11/2024 1:41 PM LOADING UNIT OPERATOR Inhaled Oxygen Concentration - - Weight 87.5 kg (193 lb) 04/06/2023 8:03 AM LOADING UNIT OPERATOR Height 160 cm (5' 3) 02/11/2024 1:41 PM LOADING UNIT OPERATOR Body Mass Index 34.19 04/06/2023 8:03 AM LOADING UNIT OPERATOR Plan of Treatment Health Maintenance Due Date Last Done Comments Breast Cancer Screening-Mammogram 1955 Colon Cancer Screening-Colonoscopy 1955 Depression Screening 1953 Fall Risk Assessment 1955 Hepatitis C Screening 1955 Osteoporosis Screening-Bone Density Scan 1953 DTaP/Tdap/Td Vaccine (1 - Tdap) 1964 Hepatitis B Screening 04/15/1971 Pneumococcal vaccine 65+ (2 of 2 - PCV) 10/24/2016 10/25/2015 Well Visit 65+ 2018 Influenza Vaccine (#1) 2024 9, 11/12/2017, 10/22/2017, Additional history exists Zoster Vaccine Completed 01/04/2018, 10/13, 04/22/2013 Procedures Procedure Name Priority Date/Time Associated Diagnosis Comments SCAN - RADIOLOGY/IMAGING 08/27/2024 4:58 PM CDT from Last 3 Months Results * SCAN - RADIOLOGY/IMAGING (08/27/2024 4:58 PM CDT) Anatomical Region Laterality Modality Other us Provider Scanning Final Result from Last 3 Months Insurance COMMERCIAL GENERIC MEDICARE MEDICARE COMMERCIAL [facility] MEDICARE COMMERCIAL GENERIC Care Teams Rock Climbing Instructor Relationship Specialty Start Date End Date Shantal Vega NP [address] [place] [address] PCP - General Family Medicine 10/10/24
--- OUTSIDE RECORDS SUMMARY | 2024-11-11 10:43 | XMS_ITS | Clinical Summary ---
Author Organization [facility] Address [address] [place] [address] Care Team Providers Care Lens Polisher Name Role Phone Jagdish Palafox MD Primary Care Provider [phone] Source Comments [facility] [employer],non-owned Affiliates and Associated Physician Practices is amultiple site organization consisting of ambulatory clinics and hospital sitesin [place], [place], [place] and [place]. This disclosure is being madepursuant to the Care Everywhere program and may not contain all information available regarding this patient. Last updated 17.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 Gender Identity Not on file Sexual Orientation [...] LIPID TESTING 1955 MAMMOGRAM 1955 MEDICARE AWV 12 MONTHS 1953 HEPATITIS C SCREENING 04/10/1971 DTAP/TDAP/TD VACCINES (1 - Tdap) 1972 PNEUMOCOCCAL VACCINE 50+ (1 of 1 - PCV) 04/15/2003 ZOSTER VACCINE (1 of 2) 04/15/2003 DEPRESSION SCREENING 02/13/2024 COVID-19 VACCINE ( - 2023-2 5 season) 2024 INFLUENZA VACCINE (#1) 2024 Respiratory Syncytial Virus (RSV) Vaccine Pt: or [...] to complete this topic MENINGOCOCCAL (Group B) VACC INE SHARED DECISION-MAKING Aged Out No longer eligibl e based on patient's age to complete this topic MENINGOCOCCAL GROUPS A/C/Y/W VACCINE Aged Out No longer eligible b ased on patient's age to complete this topic Insurance MEDICARE Care Teams Lens Polisher Relationship Specialty Start Date End Date Jagdish Palafox MD [address] [place] [address] PCP - General 05/10/10
--- OUTSIDE RECORDS SUMMARY | 2024-11-11 10:43 | XMS_ITS | Clinical Summary ---
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 Not on file Not [...] 88.5 kg (195 lb) 01/08/2019 5:21 PM EDUCATIONAL/DEVELOPMENT ASSISTANT Height 160 cm (5' 3) 01/08/2019 5:21 PM EDUCATIONAL/DEVELOPMENT ASSISTANT Body Mass Index 34.54 01/08/2019 5:21 PM EDUCATIONAL/DEVELOPMENT ASSISTANT Plan of Treatment Health Maintenance Due Date Last Done Comments DTAP/TDAP/TD VACCINES (1 - Tdap) 1972 BREAST CANCER SCREENING 1993 COLORECTAL SCREENING 1998 Colorectal Cancer Screening 1998 FIT-DNA Q 3 years 1998 FIT/FOBT Q 1 year 1998 Flex Sig/CT Colonography Q 5 years 1998 PNEUMOCOCCAL VACCINE 50+ YEARS (1 of 1 - PCV) 04/15/19 04 ZOSTER VACCINE (1 of 2) 04/15/2003 OSTEOPOROSIS SCREENING 2018 INFLUENZA VACCINE (#1) 2024 RSV VACCINE (60+ or ) (1 - 1-dose 75+ series) 2028 Insurance [facility] Care Teams Pallet Sorter Relationship Specialty Start Date End Date Jagdish Tubbs MD [address] [place] [address] PCP - General Family Practice 11/04/18
[2024-11-11 10:45] VITALS: BP 143/77; PULSE 69; RESP 20; O2SAT 98
== END 2024-11-11 11:00 | disposition home or self-care (01) ==
PROVIDERS: PCP Nurse Practitioner Family; Visit Provider Anesthesiology Pain Medicine
PROC: (CPT G0260; principal; 2024-11-11 11:00)
DX: M46.1 Sacroiliitis, not elsewhere classified (principal)
CPT/HCPCS: G0260; 27096; 99199

== ENCOUNTER 2024-11-12 10:31 | Outpatient (CLI) | payer MEDICARE, SELFPAY ==
--- NOTE | ~2024-11-12 | XR_ITS ---
EXAMINATION: XR shoulder RT min 2V, 11/12/2024 10:43 CDT HISTORY: Pain in right shoulder, injury last week, surgery 10 years a COMPARISON: No comparisons available. Findings: No acute fracture or malalignment. Severe degenerative changes Soft tissues unremarkable. Impression: No acute fracture or malalignment. Reviewed, dictated and finalized at location P. Impression: No acute fracture or malalignment.
== END 2024-11-12 10:32 | disposition home or self-care (01) ==
PROVIDERS: PCP Nurse Practitioner Family; Visit Provider Nurse Practitioner Family
DX: M25.511 Pain in right shoulder (principal)
CPT/HCPCS: 73030

== ENCOUNTER 2024-12-18 14:20 | Outpatient (CLI) | payer MEDICARE, SELFPAY ==
--- NOTE | ~2024-12-18 | MR_ITS ---
EXAM/PROCEDURE: MR shoulder RT wo con HISTORY: M25.511 - Pain in right shoulder COMPARISON: October 30, 2018 TECHNIQUE: Noncontrast enhanced right shoulder MRI. FINDINGS: Exam is degraded by moderate amount of motion artifact. Severe osteophytic degenerative changes at the glenohumeral joint, and arthrosis of the AC joint. No fracture subluxation or dislocation. Large retracted full-thickness tear involving the supraspinatus and infraspinatus tendons with advanced atrophic changes in both muscles. Subscapularis tendon appears hyperintense in T2-weighted signal but not grossly torn. Teres minor unremarkable. The long head of the biceps tendon appears slightly thickened within the bicipital groove; superior labral attachment is not well-seen. Spinoglenoid recess and suprascapular notch regions aport normal. No definite labral tear identified. No gross lymphadenopathy or suspicious masses seen. IMPRESSION: Severe osteoarthritic degenerative changes throughout the right shoulder with large retracted tear involving the supraspinatus and infraspinatus tendons; both these muscles are atrophied consistent with chronic tear. The superior labral attachment of the long head biceps tendon is not well seen; the tendon appears somewhat thickened and abnormal signal within the bicipital groove. Reviewed, dictated and finalized at location A. GRAPH SERVICE CLERK IMPRESSION: Severe osteoarthritic degenerative changes throughout the right shoulder with l arge retracted tear involving the supraspinatus and infraspinatus tendons; both these muscles are atrophied consistent with chronic tear. The superior labral attachment of the long head biceps tendon is not well seen; the tendon appears somewhat thickened and abnormal signal within the bicipital groove.
== END 2024-12-18 14:21 | disposition home or self-care (01) ==
LOC: GOSHIMG 14:20
PROVIDERS: PCP Nurse Practitioner Family; Visit Provider Nurse Practitioner Family
DX: M19.011 Primary osteoarthritis, right shoulder (principal); M75.121 Complete rotator cuff tear or rupture of right shoulder, not specified as traumatic; S46.921A Laceration of unspecified muscle, fascia and tendon at shoulder and upper arm level, right arm, initial encounter; X58.XXXA Exposure to other specified factors, initial encounter
CPT/HCPCS: 73221

== ENCOUNTER 2024-12-22 08:41 | Day surgery (SDC) | payer MEDICARE, SELFPAY ==
--- OUTSIDE RECORDS SUMMARY | 2011-08-11 06:30 | XMS_ITS | Continuity of Care Document ---
Author Organization [facility] Address [address] [place] [address] Phone Care Team Providers Care Floral Decorator Name Role Phone Melia DECKER, Federico Unavailable Unavaila ble Allergies, Adverse Reactions, Alerts Substance Reaction Status Criticality ADHESIVE BANDAGE Active No Informat ion BUPROPION HCL Active No Information Medications Medication Instructions Dosage Effective Dates (start - stop) Status Comments hydrochlorothiazide 12.5 mg Cap take 2 capsule (25MG) by oral route every day 25 MG - Active metformin 500 mg Tab take 1 tablet (500MG) by oral route 2 times every day with morning and evening meals 500 MG - Active verapamil 40 mg Tab take 1 tablet (40MG) by oral route 3 times every day 40 MG - Active Lexapro 10 mg Tab take 1 tablet (10MG) by oral route every day 10 MG - Active clonazepam 1 mg Tab take 1 tablet (1MG) by oral route 3 times every day 1 MG - Active Zymaxid 0.5 % Eye Drops instill 1 drop b y ophthalmic route 4 times every day into affected eye(s)while awake on days 2 through 7 of treatment 1 drop - Active Milka 128 5 % Eye Drops OD TID - Act maddy Milka 128 5 % Eye Ointment place 0.25 Inc h by Ophthalmic route every bedtime 0.25 Inch - Active Procedures Procedure Date OFFICE/OUTPATIENT VISIT, NEW Advance Directives Directive Yes / No Effective Date File Name Resuscitation Not Answered N/A N/A Life Support Not Answered N/A N/A Intubation Not Answered N/A N/A Antibiotics Not Answered N/A N/A IV Fluid Support Not Answered N/A N/A Tube Feed Not Answered N/A N/A Other Directive N/A N/A WARNING:The information contained in this section is historical and is provided for information only and does not constitute a legal document or any assurance that the information is still accurate. Please verify the information with the chen of the legal document before using it for clinical purposes. Encounters Encounter Description Practice Location Reason(s) For Visit Diagnoses Date Provider Providers Copied on Encounter OFFICE/OUTPA TIENT VISIT, NEW [facility], [address], [place], [place], [id number], tel:[phone] [facility] Diabetes Mellitus Type 2, UncomplicatedS uperficial injury of cornea 2 Melia Caballero. [address], [address], [place], [place], [id number], . tel:[phone] Referring Provider: Federico remy, [address], [place], [address] . tel:[phone] Family History Family Member Type Diagnosis Age At Onset No Information Payers Payer name Insurance type Covered libertarian ID Authoriza tishamika(s) [facility] [id number] Social History Type Description Quantity Date Captured Comments Alcohol Use Details Unknown Caffeine Use Details Unknown Tobacco Use Status No Information Smoking Status No Information Sex Female Chief Complaint And Reason For Visit No Information Reason For Referral Reason For Referral No Information History Of Present Illness Encounter Date Complaint History Of Prese nt Illness No Information Functional Status Date Functional Assessmen t No Information Instructions Date Instruction Additional Infor mation - Return in PRN Related to Corne al Abrasion Diabetes Type II, - Diabetes type II: no background diabetic retinopathy, no signs of neovascularization noted. Discussed ocular and systemic benefits of blood sugar control. Related to Diabetes Type II Corneal Abrasion, OD - resolved Related to Corneal Abrasion Assessments Type Assessment Date No Information Patient Care Teams Name Effective Dates (start - stop) Status Members No Information
--- NOTE | ~2024-12-22 | XR_ITS ---
EXAMINATION: XR fluoroscopy no charge DATE: 12/22/2024 10:22 INDICATION: Bilateral L5-S1 transforaminal injections. TECHNIQUE: 81 fluoroscopic images of the bar spine were obtained procedure performed by Dr. Santoro. Radiologist was not present for the imaging or procedure. The amount of fluoroscopy time used during this procedure was 0.4 minutes. Cumulative radiation dosage of 14.85 mGy. COMPARISON: None. FINDINGS/IMPRESSION: Images demonstrate spinal needles advanced to the region of the bilateral L5-S1 neural foramina. See procedure note for further detail. Reviewed, dictated and finalized at location A. IGERATOR ASSEMBLER
--- NOTE | 2024-12-22 06:48 | WPDHPUPDATE1 ---
History and Physical Update Update Date/Time: 12/22/24 06:48 History and Physical has been reviewed, including an updated exam of the patient. There are NO changes in the patient's condition. Risks, benefits, and alternatives have been discussed and questions answered. Patient agrees to proceed with procedure.
--- NOTE | 2024-12-22 06:49 | P.OP_ITS ---
Procedure Note - Detailed Date of Procedure 12/22/24 Pre-op Diagnosis Lumbar Radiculopathy, Stenosis & Spondylosis Post-op Diagnosis Same Procedure Performed Bilateral Lumbar Transforaminal Epidural Steroid Injection under Fluoroscopic G uidance and with Contrast Control at L5-S1. Surgeon Dane Santoro MD Anesthesia Local Description of Procedure INFORMED CONSENT: Risks, benefits and alternatives to the procedure were discussed in detail with the patient who expressed explicit understanding and consent to proceed. Patient was informed verbally and in written form regarding the risks associated with the procedure including the low risk of serious infection, bleeding/bruising, allergic reaction, nerve or organ injury, paralysis, procedural site pain or discomfort, worsening pain and/or mobility, failure to treat and/or disfigurement. The patient expressed explicit understanding and consent to proceed. All materials required for the procedure were available prior to procedure start. Site and side was marked prior to procedure and confirmed in the presence of the patient. PROCEDURE IN DETAIL: The patient was brought to the procedural suite and placed in the prone position. Patient was made comfortable with use of pillows under the head/chest, hips and ankles. Skin overlying the injection site was prepared broadly with ChloraPrep applicator and draped in a sterile manner. Aseptic technique was employed throughout. The endplates of the vertebral body at the site of interest were aligned in the AP view. Ipsilateral oblique angulation was utilized to better visualize the neuroforamen of interest. Local anesthesia was established by infiltration with approximately 5 mL of 0.5% PF lidocaine via a 1-1/2 inch 27-gauge needle. A 22-gauge 3.5 inch Kaila (pencil point) spinal needle was advanced until the needle approached the 6 o'clock position on the pedicle just superior to the exiting nerve root. on the right at L5-S1. Lateral view was utilized to confirm appropriate position of the needle tip within the superior and posterior portion of the respective foramen. In an AP view, 1 mL of Omnipaque 300 contrast medium was injected after negative aspiration for CSF, blood or other bodily fluid, showing appropriate neurogram without evidence of i ntravascular or intrathecal spread of contrast. Digital subtraction imaging was used with an additional 1ml of the same contrast medium to confirm absence of intravascular contrast spread. A 1mL solution containing 5 mg of dexamethasone was injected after negative repeat aspiration. Appropriate spread of the injectate was confirmed with washout of previously injected contrast. No parasthesias were elicited. Needle was removed completely intact without difficulty. The same exact procedure was repeated for all remaining levels on the contralateral side, left L5-S1 neuroforamen, modified as necessary to accommodate for the new target location with identical findings and results and no evidence of complication. Images were saved and documented in the patient chart. Patient's skin was cleaned and sterile bandage applied. The patient tolerated the procedure well. The patient was transported to the recovery area in stable condition where they were observed for an appropriate amount of time prior to discharge, without evidence of complication. The patient was instructed to avoid excessive activity for the next 48 hours, including climbing and frequent use of stairs. Showers only for 48 hours. They were instructed not to drive or operate heavy machinery for 24 hours. They are to monitor for severe headaches, fevers, chills, night sweats, erythema/swelling at the site or any other signs of infection, bleeding/bruising, bowel or bladder changes as well as new pain, weakness or numbness in the upper or lower extremity. Should they notice these changes, they are instructed to call our office immediately or report directly to the nearest Emergency Department if no answer or if after posted office hours. COMPLICATIONS: None COMMENTS: None CONTRAST WASTED: 26 mL Omnipaque 300. STEROID WASTED: 0 mg of dexamethasone. Complications No immediate complications Condition Stable Disposition Same day [facility] Billing Surgery - Charge Forward: Surgery Billing
--- OUTSIDE RECORDS SUMMARY | 2024-12-22 08:55 | XMS_ITS | Clinical Summary ---
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
--- OUTSIDE RECORDS SUMMARY | 2024-12-22 08:55 | XMS_ITS | Clinical Summary ---
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 F/u with NSG, referral sent today, was to f/u every three months, last visit was 09/2020 Update bMRI Anxiety and depression 03/12/2023 Assessment & Plan (03/12/2023 11:17 AM NARCOTICS AGENT): Has untreated BPD, depression and anxiety, referred to psychiatry Recommend weaning clonazepam Visual-spatial impairment 03/12/2023 Assessment & Plan (03/12/2023 11:16 AM NARCOTICS AGENT): F/u with NSG, not clear if the [...] 02/11/2024 Assessment & Plan (03/12/2023 11:02 AM NARCOTICS AGENT): Recommend reducing clonazepam and stopping Parkinsonian features 01/17/20212023 Anxiety state 11/05/2018 03/12/2023 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 03/12/2023 Immunizations Immunization Administration Dates Next Due Hib [...] on file Legal Sex Female 2:59 AM NARCOTICS AGENT Gender Identity Not on file Sexual Orientation Not on file Last Filed Vital Signs Vital Sign Reading Time Taken Comments Blood Pressure 155/83 02/11/2024 1:41 PM NARCOTICS AGENT Pulse 78 02/11/2024 1:41 PM NARCOTICS AGENT Temperature 36.8 C (98.3 F) 02/11/2024 1:41 PM NARCOTICS AGENT Respiratory Rate 20 02/10/2020 11:39 AM NARCOTICS AGENT Oxygen Saturation 98% 02/11/2024 1:41 PM NARCOTICS AGENT Inhaled Oxygen Concentration - - Weight 87.5 kg (193 lb) 04/06/2023 8:03 AM NARCOTICS AGENT Height 160 cm (5' 3) 02/11/2024 1:41 PM NARCOTICS AGENT Body Mass Index 34.19 04/06/2023 8:03 AM NARCOTICS AGENT Plan of Treatment Health Maintenance Due Date [...] 01/04/2018, 10/13, 04/22/2013 Insurance COMMERCIAL GENERIC MEDICARE COMMERCIAL GENERIC COMMERCIAL GENERIC Care Teams Dump Attendant Relationship Specialty Start Date End Date Shantal Vega NP [address] [place] [id number] PCP - General Family Medicine 10/10/24
[2024-12-22 09:19] VITALS: BP 152/93; PULSE 84; RESP 16; TEMP 36.8; O2SAT 99
[2024-12-22 09:43] VITALS: BP 138/81; PULSE 84; RESP 14; O2SAT 99
[2024-12-22] MEDS: DEXAMETHASONE SODIUM PHOSP/PF 10 MG/ML 1 ML VIAL (09:46)
[2024-12-22] MEDS: LIDOCAINE 2% PF LOCAL INJ 5 ML VIAL (09:46)
[2024-12-22 09:48] VITALS: BP 145/90; PULSE 77; RESP 14; O2SAT 100
[2024-12-22 09:52] VITALS: BP 163/88; PULSE 76; RESP 16; O2SAT 100
[2024-12-22 09:57] VITALS: BP 139/81; PULSE 75; RESP 18; O2SAT 100
== END 2024-12-22 10:06 | disposition home or self-care (01) ==
PROVIDERS: PCP Nurse Practitioner Family; Visit Provider Anesthesiology Pain Medicine
PROC: (CPT 64483; principal; 2024-12-22 09:50)
DX: M48.061 Spinal stenosis, lumbar region without neurogenic claudication (principal); M47.26 Other spondylosis with radiculopathy, lumbar region
CPT/HCPCS: 64483; 99199

== ENCOUNTER 2024-12-25 14:30 | Outpatient (RCR) | payer MEDICARE, SELFPAY ==
--- NOTE | 2024-12-02 12:03 | OPREHPOC ---
Outpatient Therapy Plan of Care This is a Multidisciplinary Plan of Care that may contain components documented by all disciplines (PT, OT, and ST.) PT Problem 1 PT Problem #1 Knowledge Deficit PT Goal 1 Goal / Goal Update 1. Patient to demonstrate independence with HEP for improved self-reliance of symptom management. Target Visit 4 PT Problem 2 PT Problem #2 Pain PT Goal 1 Goal / Goal Update 1. Patient to decrease subjective reports of pain to <4/10 for improved ADL tolerance. 2. Patient to report an improvement in radiating symptoms by 50% to increase ability to perform ADLs. Target Visit 8 PT Problem 3 PT Problem #3 Impaired Functional Mobility PT Goal 1 Goal / Goal Update 1.Patient to report improved standing tolerance of >10 minutes for increased ADL endurance 2. Patient to improve gait mechanics and stair negotiation to no noted deficit and reciprocal pattern for improved community navigation. Target Visit 8
--- NOTE | 2024-12-02 12:04 | PTOPEVAL1 ---
Assessment and note entered by Padilla Elena, PT Evaluation Information Assessment Status Evaluation ICD-10 Condition Codes (PT) Pain in low back M54.50,Radiculopathy, lumbar region M54.16,Radiculopathy, sacral and sacrococcygeal region M54.18,Pain in right shoulder M25.511,Difficulty Walking R26.2 Subjective Information Pt states she had a fall on 15 of August weekend were she landed flat on here back and has had progressively worse back pain and pain that radiates to her thighs. She notes she has so much pain that she can hardly walk in the mornings. She recently got SIJ injections with minimal relief. Additionally, She reports another trip around where she tripped and grabbed the door frame injuring her R shoulder which had previous rotator cuff repair 10 years ago. She has shoulder MRI scheduled in December Reported Pain Level Pain Score 7,4: Self Report Assessment PT Clinical Summary Patient presents to physical therapy with a primary issue of low back pain since fall in August and increased R shoulder pain after a trip in September. Patient demonstrates weakness, pain, decreased mobility, abnormal posture, gait deficit , and decreased flexibility that limit their ability to perform activities of daily living and functional movements. Patient will benefit from skilled physical therapy to address the above listed deficits and return to prior level of function. Home exercise program instructed and written handout provided, exercises tolerated well with no adverse effects to note post-session. Patient was educated on importance of adherence to home exercise program. Patient was also educated on anatomy, prognosis, home modalities, and plan of care. Plan of Care Interventions Aquatic Therapy,Electrical Stimulation,Gait Training,Hot Pack/Cold Pack,Manual Therapy, Mechanical Traction,Neuro Re-education,Therapeutic Activities,Therapeutic Exercise,Ultrasound,Other PT Services Indicated Yes Treatment Frequency and 2x week x 8 visits Duration These treatments will address the objective and functional deficits as defined above. The patient will be advanced safely and appropriately in order for the patient to progress towards his/her prior level of function. Additional exercises will be introduced and as well as a comprehensive home exercise program upon discharge, if needed, ?to ensure carryover of functional gains achieved in the clinic. This treatment plan has been reviewed and agreement upon by the patient.
--- NOTE | 2024-12-23 14:00 | PCPTNOTE ---
Patient canceled due to having a procedure done and needing to rest for 48 hours before returning to activity.
--- NOTE | 2024-12-25 15:29 | OPREHPOC ---
Outpatient Therapy Plan of Care This is a Multidisciplinary Plan of Care that may contain components documented by all disciplines (PT, OT, and ST.) PT Problem 1 PT Problem #1 Knowledge Deficit PT Goal 1 Goal / Goal Update 1. Patient to demonstrate independence with HEP for improved self-reliance of symptom management. Target Visit 4 Progress Met PT Problem 2 PT Problem #2 Pain PT Goal 1 Goal / Goal Update 1. Patient to decrease subjective reports of pain to <4/10 for improved ADL tolerance. - Pain flutucates between 4/10 and 8/10 2. Patient to report an improvement in radiating symptoms by 50% to increase ability to perform ADLs. - MET Target Visit 8 Progress Partially Met PT Problem 3 PT Problem #3 Impaired Functional Mobility PT Goal 1 Goal / Goal Update 1.Patient to report improved standing tolerance of >10 minutes for increased ADL endurance 2. Patient to improve gait mechanics and stair negotiation to no noted deficit and reciprocal pattern for improved community navigation. Target Visit 8 Progress Not Met
--- NOTE | 2024-12-25 15:29 | PTOPDC ---
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 She states she has an appointment with orthopedic appointment on January 01. She states her back is doing a little better since she received an injection on her R side L5-S1. Pt notes continued pain with transitioning from a sit to stand and when pushing when using the restroom. She notes her standing tolerance is still less than 5 mins. She reports she would like to be discharged from therapy until she figures Reported Pain Level Pain Score 6,4: Self Report Assessment PT Clinical Summary Pt to meet with orthopedic surgeon to discuss surgical options for R shoulder. Pt has made some progress with physical therapy and recent injections in terms of back pain. Pt still has pain limiting function and standing tolerance. Patient to discharge from physical therapy this date and continue with home exercise program as instructed. Patient to contact physical therapist or primary care provider if questions or concerns arise and re-start physical therapy after orthopedic evaluation if recommended. Plan of Care PT Services Indicated No
== END 2024-12-26 07:49 | disposition home or self-care (01) ==
LOC: ANHGOSHPT 14:30
PROVIDERS: PCP Nurse Practitioner Family; Visit Provider Nurse Practitioner Family
DX: M54.16 Radiculopathy, lumbar region (principal); M71.38 Other bursal cyst, other site; M25.511 Pain in right shoulder
CPT/HCPCS: 97014; 97110; 97112; 97140; 97162; 97530; G0283